=== PATIENT | female | born 1980 | race Caucasian/White ===

== ENCOUNTER 2020-01-28 13:57 | Outpatient (REF) | payer OTHER, SELFPAY ==
[2020-01-28 16:56] LABS: Syphilis Screen Nonreactive (Nonreactive)
[2020-01-29 01:46] LABS: CT PCR NOT DETECTED (Not Detect.); NG PCR NOT DETECTED (Not Detect.)
[2020-01-31 08:32] LABS: HBsAGNum1 0.23 S/CO (0.00-0.99); Hepatitis B Surface Antigen Negative (Negative); ~HepC Num1 0.09 S/CO (0.00-0.79); ~Hepatitis C Antibody Nonreactive (Nonreactive)
[2020-01-31 08:44] LABS: HIV AB/AG Nonreactive (Nonreactive); HIV Num 1 0.09 S/CO (0.00-0.99)
== END 2020-01-28 13:58 | disposition home or self-care (01) ==
LOC: HO.LAB 13:57
PROVIDERS: PCP Internal Medicine; Visit Provider Advanced Practice Midwife
DX: Z01.419 Encounter for gynecological examination (general) (routine) without abnormal findings (principal); Z11.4 Encounter for screening for human immunodeficiency virus [HIV]; Z11.3 Encounter for screening for infections with a predominantly sexual mode of transmission; Z01.84 Encounter for antibody response examination; Z20.2 Contact with and (suspected) exposure to infections with a predominantly sexual mode of transmission
CPT/HCPCS: 86780; 86803; 87340; 87389; 87491; 87591

== ENCOUNTER → 2020-07-19 10:48 | Outpatient (BNVA) | payer OTHER, SELFPAY | PROVIDERS: PCP Internal Medicine; Referring Provider Internal Medicine; Visit Provider Surgery | DX: R19.8 Other specified symptoms and signs involving the digestive system and abdomen (principal) | CPT/HCPCS: 99212 ==

== ENCOUNTER 2020-10-19 11:41 | Emergency (ER) | payer OTHER, SELFPAY ==
--- NOTE | 2020-10-19 | ECG_ITS ---
Test Reason : DIZZYNESS Blood Pressure : / mmHG Vent. Rate : 076 BPM Atrial Rate : 076 BPM P-R Int : 166 ms QRS Dur : 080 ms QT Int : 382 ms P-R-T Axes : 045 -01 022 degrees QTc Int : 429 ms Normal sinus rhythm Normal ECG No previous ECGs available Referred By: Generic ED Physician Electronically Signed By:Michael Godinez
[2020-10-19 11:49] VITALS: BP 125/84; PULSE 68; RESP 18; TEMP 36.8; O2SAT 97; BMI 25.5
[2020-10-19 15:47] VITALS: BP 144/87; PULSE 65; RESP 16; O2SAT 99
--- NOTE | 2020-10-19 16:03 | ED_ITS ---
HPI - Dizziness General Chief Complaint: Dizziness Stated Complaint: fainting spells Time Seen by Provider: 10/19/20 15:40 Source: patient Mode of arrival: ambulatory Limitations: no limitations History of Present Illness HPI Narrative: 40 yo female previously healthy complaints of head pressure with associated black spots in vision, dizziness, occasional nausea/vomiting x 2 weeks. She does have symptoms with movement but also has the symptoms had rest. No associated sinus pressure or nasal congestion. No chest pain, shortness of breath, fevers, chills, body aches. No abdominal pain or diarrhea. She has been increasing fluids at home. Related Data Home Medications Medication Instructions Recorded Confirmed cetirizine 10 mg tablet 10 mg PO DAILY 01/28/20 07/19/20 citalopram 40 mg tablet 40 mg PO DAILY 01/28/20 07/19/20 fluticasone propionate 50 INTRANASAL 01/28/20 07/19/20 mcg/actuation nasal spray,suspension montelukast 10 mg tablet 10 mg PO BEDTIME 01/28/20 07/19/20 nitrofurantoin macrocrystal 50 mg 0 mg PO 01/28/20 07/19/20 capsule oxybutynin chloride 10 mg 10 mg PO DAILY 01/28/20 07/19/20 tablet,extended release 24 hr Previous Rx's Medication Instructions Recorded pjimwkiapo-ycfbjiuxppxyc-wvanlyhd 1 cap PO Q8H PRN #10 cap 10/19/20 50 mg-300 mg-40 mg capsule (Fioricet) Allergies Allergy/AdvReac Type Severity Reaction Status Date / Time adhesive tape Allergy Mild Rash Verified 10/19/20 11:49 Review of Systems Review of Systems: Yes all other systems are reviewed and are negative Constitutional: Constitutional: Reports no additional constitutional complaints, Denies body ache(s), Denies chills, Denies fever(s), Reports headache(s) (Pressure) and Denies weakness Eyes: Eyes: Reports no additional eye complaints and Reports change in vision ENT: Reports system reviewed and no additional complaints, except as documented, Reports dizziness, Reports headache(s) (Pressure), Denies nasal congestion, Denies nasal discharge and Denies neck pain Cardiovascular: Cardiovascular: Reports no additional cardiovascular complaints, Denies chest pain, Denies leg edema and Denies dyspnea Respiratory: Respiratory: Reports no additional respiratory complaints, Denies cough and Denies dyspnea Gastrointestinal: Gastrointestinal: Reports no additional gastrointestinal complaints, Denies abdominal pain, Denies diarrhea, Reports nausea and Reports vomiting Genitourinary: Genitourinary: Reports no additional female genitourinary complaints and Denies urinary incontinence Musculoskeletal: Musculoskeletal: Reports no additional musculoskeletal complaints, Denies back pain, Denies arthralgias, Denies joint swelling, Denies neck pain, Denies numbness and Denies tingling Integumentary/Breasts: Skin/Breast: Reports system reviewed and no additional complaints, except as docu and Denies rash Neurologic: Reports system reviewed and no additional complaints, except as documented, Denies Abnormal speech present, Reports dizziness, Reports headache(s) (Pressure), Denies numbness, Denies tingling and Denies weakness PMFSH Past Medical History Attestation statement: The following information was validated with the patient. Source: old records reviewed and nursing notes reviewed Medical History Abdominal wall asymmetry Depression Urinary incontinence Vitamin D deficiency Surgical History Hx of prior ablation treatment Hx of tubal ligation Family History Family History Mother Diabetes mellitus Sister Diabetes mellitus Maternal Grandmother Diabetes mellitus Father HTN (hypertension) Colon polyp Schizophrenia Paternal Aunt Breast cancer Maternal Aunt Breast cancer Paternal Grandfather Colon cancer Social History Social History Alcohol intake: current Alcohol intake frequency: holidays/special occasions only Advance Directives: No Advance Directives Information Provided: Yes Patient : No Gender identity: female Physical Exam Vital Signs: Vital Signs: Last Vital Signs Temp 98.1 F 10/19/20 16:26 Pulse 74 10/19/20 17:31 Resp 16 10/19/20 17:31 BP 141/93 H 10/19/20 17:31 Pulse Ox 98 10/19/20 17:31 Body Mass Index 25.5 Const: General: cooperative, healthy appearing, comfortable and no acute distress Orientation/consciousness: patient oriented x3 Limitations: no limitations HENMT: Head: Yes normal to inspection Ears: hearing grossly normal da aterally and TM's normal bilaterally General nose exam: Normal external nose present Face and sinus: Yes normal facial exam Mouth: Normal oral and palatal mucosa present Throat: Yes posterior oropharynx normal, Yes tonsils normal and Yes uvula midline Eyes: General: appearance normal, both eyes and all related structures Visual Das: normal visual das by confrontation Alignment and Position: alignment normal Periorbital: periorbital findings normal Eyelids: Yes eyelids normal Conjunctivae: conjunctivae normal Sclerae: sclerae normal Corneas: corneas normal Pupils: Equal, round and reactive pupils present EOM: EOMs intact bilaterally Direct Ophthalmoscopy: normal light reflex and no photophobia Neck: Neck: Yes normal visual inspection, Yes full ROM, Yes no lymphadenopathy and Yes no meningeal signs Chest: Chest palpation & inspection: normal inspection of the chest Resp: Effort & Inspection: normal respiratory effort Auscultation: clear to auscultation bilaterally Cardio: Rate: regular rate Rhythm: regular rhythm Peripheral pulses: Peripheral pulses 2+ throughout GI: Inspection: Yes normal to inspection Palpation (GI): Soft to palpation and nontender Auscultation: normal bowel sounds Back/Spine/Pelvis: Thoracic/Lumbar Spine: thoracic and lumbar spine normal to inspection Skin: General skin exam: no rashes or lesions noted Neuro: General: patient oriented x3, no meningeal signs, no focal motor deficits and normal sensation to monofilament Cranial nerves: Yes CN's II-XII intact bilaterally, Yes Equal, round and reactive pupils present, Yes Bilate rally intact EOM present, Yes Nystagmus not present and Yes Midline tongue present Cognition (Neuro): normal cognition Speech: No Abnormal speech present Gait exam (Neuro): Normal gait present Motor exam (neuro): 5/5 motor strength present throughout Sensory Exam: Normal double simultaneous stimulation for sensation Coordination: nrinwo-ma-zkpr test normal, yysa-kp-cpdi test normal and tandem gait normal Extrem: General: Yes normal to inspection Course Course Course Narrative: 40-year-old female here with complaints of 2-3 weeks of intermittent head pressure with associated black spots in the vision, dizziness and 1 episode of nausea and vomiting. Episodes occur both at rest and with exertion. She has been increasing her fluids at home with continued symptoms. On exam normal neuro exam. Hemodynamically stable. ?orthostatic hypotension vs migraine. Will check labs, orthostatic vital sign, UA, urine . Will give normal saline bolus and reassess 1710-labs unremarkable. Urine and urine negative. Orthostatics negative. Patient is feeling improved after normal saline bolus. She actually has no symptoms on my assessment and tells me her episodes are intermittent. ? secondary to dehydration vs migraines. Therefore, will send patient home with trial migraine medicine p.r.n.. Also recommended increasing fluids home. Patient's blood pressure is mildly elevated for her and so she will follow-up with her primary care doctor in regards to this. Her symptoms are likely multifactorial. Normal neuro exam with episodic symptoms for 2 weeks so less likely underlying ICH versus CVA. Reviewed worrisome signs and symptoms of when to return to the emergency department. Comfortable discharge home. MDM - Dizziness MDM Narrative Medical decision making narrative: Orthostatic hypotension, migraines, electrolyte abnormality Medical Records Attestation: I reviewed the patient's medical records. Lab Data Attestation: I reviewed the patient's lab results. Result diagrams: 10/19/20 16:01 10/19/20 16:01 Labs: Lab Results 10/19/20 10/19/20 10/19/20 Range/Units 16:01 16:01 17:06 WBC 6.6 (4.8-10.8) X10*3/uL RBC 4.33 (4.20-5.50) X10*6/uL Hgb 13.3 (12.0-16.0) g/dl Hct 38.9 (37-47) % MCV 89.8 (80-98) fL MCH 30.7 (27.0-33.0) pg MCHC 34.2 (31.0-35.0) g/dl RDW 11.6 (11.0-16.0) % Plt Count 336 (160-400) X10*3/uL MPV 9.2 L (9.4-12.3) fL Immature Gran % (Auto) 0.3 (0.0-0.4) % Neut % (Auto) 63.7 (45-73) % Lymph % (Auto) 26.6 (20-40) % [place] % (Auto) 8.1 (2-11) % Eos % (Auto) 0.8 (0-4) % Baso % (Auto) 0.5 (0-2) % Lymph # (Auto) 1.8 (1.2-4.9) X10*3/uL [place] # (Auto) 0.5 (0.1-1.2) X10*3/uL Eos # (Auto) 0.1 (0.0-0.4) X10*3/uL Baso # (Auto) 0.0 (0.0-0.2) X10*3/uL Abs Immat Gran (auto) 0.02 (0.00-0.03) X10*3/uL Absolute Neuts (auto) 4.2 (2.0-8.3) X10*3/uL Absolute Nucleated RBC 0.000 (0.0-0.012) X10*3/uL Nucleated RBC % (auto) 0.0 (0.0-0.2) /100WBC Sodium 139 (135-145) mmol/L Potassium 4.1 (3.3-5.1) mmol/L Chloride 102 (96-108) mmol/L Carbon Dioxide 26 (22-29) mmol/L Anion Gap 15 (12-20) BUN 7 L (9-16) mg/dL Creatinine 0.69 (0.5-1.4) mg/dL Estim Creat Clear Calc 115.5 Estimated GFR > 60 Random Glucose 88 (60-115) mg/dL Calcium 9.5 (8.4-10.2) mg/dL Total Bilirubin 0.4 (0.0-1.0) mg/dL Direct Bilirubin 0.2 (0.0-0.5) mg/dL AST 19 (5-31) U/L ALT 15 (0-31) U/L Alkaline Phosphatase 61 (39-117) U/L Total Protein 8.0 (6.5-8.0) g/dL Albumin 4.5 (3.5-5.0) g/dL Lipase 31 (8-78) U/L Urine Color YELLOW Urine Appearance CLEAR Urine pH 7.0 (5.0-8.0) Ur Specific [place] <= 1.005 (1.005-1.025) Urine Protein NEG (NEG-TRACE) MG/DL Urine Glucose (UA) NEG (NEG) MG/DL Urine Ketones NEG (NEG) MG/DL Urine Blood NEG (NEG) Urine Nitrite NEG (NEG) Ur Leukocyte Esterase NEG (NEG) Urine RBC 0-2 (0) /HPF Urine WBC 0-2 (0-4) /HPF Ur Squamous Epith Cells 1+ /LPF Urine Bacteria TRACE /LPF Urine Test (NEGATIVE) 10/19/20 Range/Units 17:06 WBC (4.8-10.8) X10*3/uL RBC (4.20-5.50) X10*6/uL Hgb (12.0-16.0) g/dl Hct (37-47) % MCV (80-98) fL MCH (27.0-33.0) pg MCHC (31.0-35.0) g/dl RDW (11.0-16.0) % Plt Count (160-400) X10*3/uL MPV (9.4-12.3) fL Immature Gran % (Auto) (0.0-0.4) % Neut % (Auto) (45-73) % Lymph % (Auto) (20-40) % [place] % (Auto) (2-11) % Eos % (Auto) (0-4) % Baso % (Auto) (0-2) % Lymph # (Auto) (1.2-4.9) X10*3/uL [place] # (Auto) (0.1-1.2) X10*3/uL Eos # (Auto) (0.0-0.4) X10*3/uL Baso # (Auto) (0.0-0.2) X10*3/uL Abs Immat Gran (auto) (0.00-0.03) X10*3/uL Absolute Neuts (auto) (2.0-8.3) X10*3/uL Absolute Nucleated RBC (0.0-0.012) X10*3/uL Nucleated RBC % (auto) (0.0-0.2) /100WBC Sodium (135-145) mmol/L Potassium (3.3-5.1) mmol/L Chloride (96-108) mmol/L Carbon Dioxide (22-29) mmol/L Anion Gap (12-20) BUN (9-16) mg/dL Creatinine (0.5-1.4) mg/dL Estim Creat Clear Calc Estimated GFR Random Glucose (60-115) mg/dL Calcium (8.4-10.2) mg/dL Total Bilirubin (0.0-1.0) mg/dL Direct Bilirubin (0.0-0.5) mg/dL AST (5-31) U/L ALT (0-31) U/L Alkaline Phosphatase (39-117) U/L Total Protein (6.5-8.0) g/dL Albumin (3.5-5.0) g/dL Lipase (8-78) U/L Urine Color Urine Appearance Urine pH (5.0-8.0) Ur Specific [place] (1.005-1.025) Urine Protein (NEG-TRACE) MG/DL Urine Glucose (UA) (NEG) MG/DL Urine Ketones (NEG) MG/DL Urine Blood (NEG) Urine Nitrite (NEG) Ur Leukocyte Esterase (NEG) Urine RBC (0) /HPF Urine WBC (0-4) /HPF Ur Squamous Epith Cells /LPF Urine Bacteria /LPF Urine Test NEGATIVE (NEGATIVE) ECG Data Attestation: I personally reviewed and interpreted this ECG as follows: ECG interpretation date: 10/19/20 ECG interpretation time: 16:32 Interpretation: Normal sinus rhythm with a rate of 76, normal TN, normal QRS, no rmal QT Discharge Plan Discharge Clinical Impression: Near syncope, Migraine Patient Disposition: Home, Self-Care Instructions: Migraine Headache (ED), Near Syncope (ED) Additional Instructions: Increase fluids, rest Change positions slowly I am prescribing a medication to help with headache if these symptoms occur. Your blood pressure was mildly elevated today and you should follow-up with primary care doctor in regards to this. Prescriptions: New gjzkpvjdjf-wfmsidwapyeul-vpdz [Fioricet] 50-300-40 mg capsule 1 cap PO Q8H PRN (Reason: pain) Qty: 10 RF: 0 No Action oxybutynin chloride 10 mg tablet extended release 24hr 10 mg PO DAILY RF: 0 montelukast 10 mg tablet 10 mg PO BEDTIME RF: 0 citalopram 40 mg tablet 40 mg PO DAILY RF: 0 cetirizine 10 mg tablet 10 mg PO DAILY RF: 0 fluticasone propionate 50 mcg/actuation spray,suspension intranasal RF: 0 nitrofurantoin macrocrystal 50 mg capsule 0 mg PO RF: 0 Referrals: Daniel Freeman MD [Primary Care Provider] - 2 days Interventions: ED Discharge Assessment Last Done: 10/19/20 18:47 Discharge Date/Time: 10/19/20 18:47
[2020-10-19] MEDS: 0.9 % Sodium Chloride 1,000 ML 999 ML IV (16:05)
[2020-10-19 16:10] LABS: MANUAL DIFF FLAG NO
[2020-10-19 16:11] LABS: Basophils Percent Auto 0.5 % (0-2); Eosinophils Absolute Auto 0.1 X10*3/uL (0.0-0.4); Eosinophils Percent Auto 0.8 % (0-4); Hematocrit 38.9 % (37-47); Hemoglobin 13.3 g/dl (12.0-16.0); Imm Gran Abs Auto 0.02 X10*3/uL (0.00-0.03); Imm Gran Pct Auto 0.3 % (0.0-0.4); Lymphocytes Absolute Auto 1.8 X10*3/uL (1.2-4.9); Lymphocytes Percent Auto 26.6 % (20-40); Mean Corpuscular HGB Conc 34.2 g/dl (31.0-35.0); Mean Corpuscular Hemoglobin 30.7 pg (27.0-33.0); Mean Corpuscular Volume 89.8 fL (80-98); Mean Platelet Volume 9.2 fL (9.4-12.3); Monocytes Absolute Auto 0.5 X10*3/uL (0.1-1.2); Monocytes Percent Auto 8.1 % (2-11); Neutrophils Absolute Auto 4.2 X10*3/uL (2.0-8.3); Neutrophils Percent Auto 63.7 % (45-73); Platelet Count 336 X10*3/uL (160-400); Red Blood Count 4.33 X10*6/uL (4.20-5.50); Red Cell Distribution Width 11.6 % (11.0-16.0); White Blood Count 6.6 X10*3/uL (4.8-10.8)
[2020-10-19 16:26] VITALS: BP 144/87; PULSE 63; RESP 16; TEMP 36.7; O2SAT 100
[2020-10-19 16:46] LABS: Alanine Aminotransferase 15 U/L (0-31); Albumin Level 4.5 g/dL (3.5-5.0); Alkaline Phosphatase 61 U/L (39-117); Anion Gap 15 (12-20); Aspartate Amino Transferase 19 U/L (5-31); Bilirubin Direct 0.2 mg/dL (0.0-0.5); Bilirubin Total 0.4 mg/dL (0.0-1.0); Blood Urea Nitrogen 7 mg/dL (9-16); Calcium 9.5 mg/dL (8.4-10.2); Carbon Dioxide 26 mmol/L (22-29); Chloride 102 mmol/L (96-108); Creatinine Clr Calc Pharmacy 115.5; Estimated Glomerular Filt Rate > 60; Glucose Random 88 mg/dL (60-115); Lipase 31 U/L (8-78); Potassium 4.1 mmol/L (3.3-5.1); Sodium 139 mmol/L (135-145)
[2020-10-19 17:21] LABS: Glucose Urine UA NEG (NEG); Leukocyte Esterase Urine NEG (NEG); Nitrite Urine NEG (NEG); Specific Gravity - Urine <= 1.005 (1.005-1.025); Urine Blood NEG (NEG); Urine Ketones NEG (NEG); Urine Protein NEG (NEG-TRACE)
[2020-10-19 17:23] LABS: Color Urine YELLOW
[2020-10-19 17:24] LABS: Appearance Urine CLEAR; UPreg QC Valid YES; Urine Pregnancy NEGATIVE (NEGATIVE)
[2020-10-19 17:29] VITALS: BP 133/80; PULSE 65
[2020-10-19 17:30] VITALS: BP 131/84; BP 141/93; PULSE 72; PULSE 76
[2020-10-19 17:31] VITALS: BP 141/93; PULSE 74; RESP 16; O2SAT 98
[2020-10-19 19:06] LABS: Bacteria Urine TRACE /LPF; RBC Urine 0-2 /HPF (0); Squamous Epithelial Cell Urine 1+ /LPF; WBC Urine 0-2 /HPF (0-4)
== END 2020-10-19 18:47 | disposition home or self-care (01) ==
PROVIDERS: Emergency Provider Emergency Medicine; PCP Internal Medicine
DX: R55 Syncope and collapse (principal); G43.909 Migraine, unspecified, not intractable, without status migrainosus; R42 Dizziness and giddiness; Z79.899 Other long term (current) drug therapy
CPT/HCPCS: 36415; 80048; 80076; 81001; 81025; 83690; 85025; 93005; 99285

== ENCOUNTER 2020-10-22 02:54 | Emergency (ER) | payer OTHER, SELFPAY ==
--- NOTE | ~2020-10-22 | XR_ITS ---
EXAMINATION: XR CHEST CLINICAL INFORMATION: Cough COMPARISON: None TECHNIQUE: Frontal view of the chest was obtained. FINDINGS: Normal symmetric lung volumes. No parenchymal consolidation. No pleural effusion. No pneumothorax. Cardiomediastinal silhouette and pulmonary vascularity are within normal limits. No acute osseous abnormalities. XR/XR chest 1V IMPRESSION: Normal chest
[2020-10-22 03:49] VITALS: BP 131/93; PULSE 84; RESP 18; TEMP 36.7; O2SAT 100; BMI 25.5
--- NOTE | 2020-10-22 04:27 | ED_ITS ---
HPI - General Adult General Chief complaint: General Medical Stated complaint: Sob/Cough Time Seen by Provider: 10/22/20 02:56 Source: patient Mode of arrival: ambulatory Limitations: no limitations History of Present Illness HPI narrative: Patient comes emergency room complaining of cough. Patient states she has been having dry cough for about 3 days, now complaining of sore throat from coughing so much. Patient denies fever chills, patient states that the coughing is giving her headache when she coughs. Patient thinks that there was an issue with her AC unit at home, not venting properly, causing her symp toms. Patient denies chest pain, no shortness of breath Related Data Home Medications Medication Instructions Recorded Confirmed cetirizine 10 mg tablet 10 mg PO DAILY 01/28/20 07/19/20 citalopram 40 mg tablet 40 mg PO DAILY 01/28/20 07/19/20 fluticasone propionate 50 INTRANASAL 01/28/20 07/19/20 mcg/actuation nasal spray,suspension montelukast 10 mg tablet 10 mg PO BEDTIME 01/28/20 07/19/20 nitrofurantoin macrocrystal 50 mg 0 mg PO 01/28/20 07/19/20 capsule oxybutynin chloride 10 mg 10 mg PO DAILY 01/28/20 07/19/20 tablet,extended release 24 hr Previous Rx's Medication Instructions Recorded mtxgkhznaf-mymjnrwlqpkov-tuvdalnc 1 cap PO Q8H PRN #10 cap 10/19/20 50 mg-300 mg-40 mg capsule (Fioricet) benzonatate 100 mg capsule 100 mg PO TID PRN #14 cap 10/22/20 (Tessalon [place]) Allergies Allergy/AdvReac Type Severity Reaction Status Date / Time adhesive tape Allergy Mild Rash Verified 10/19/20 11:49 Review of Systems Review of Systems: Constitutional : No Weight loss, No Fever, No Chills, No Night Sweats, No Fatigue, No Malaise ENT/Mouth : No Hearing loss, No Ear Pain, No Nasal Congestion, No Sinus Pain, complaining of sore throat, voice is changing intermittently, No Rhinorrhea, No Swallowing Difficulty Eyes: No Eye Pain, No Swelling, No Redness, No Foreign Body, No Discharge, No Vision Changes Cardiovascular : No Chest Pain, No SOB, No Dyspnea on Exertion, No Orthopnea, No Edema, No Palpitations Respiratory : Complaining of dry cough No Wheezing, No Smoke Exposure, No Dyspnea Gastrointestinal : No Nausea, No Vomiting, No Diarrhea, No Constipation, No abdominal Pain, No Hematochezia, No Melena Genitourinary : no irregular bleeding, No Dysuria, No Urinary Frequency, No Hematuria, No Urinary Incontinence, No Urgency, No Flank Pain, No Urinary Flow Changes, No Hesitancy Musculoskeletal : No joint pain, No Myalgias, No Joint Swelling Skin : No Skin Lesions, No rash Neuro : No Weakness, No Numbness, No Paresthesias, No Loss of Consciousness, No Dizziness, complaining of headache from coughing so much Psych : No Anxiety/Panic, No Depression, No SI/HI/AH/VH, No Social Issues, Heme/Lymph: No Bruising, No Bleeding,No Lymphadenopathy Endocrine : No Polyuria, No Polydipsia, No Temperature Intolerance PMFSH Past Medical History Medical History Abdominal wall asymmetry Depression Urinary incontinence Vitamin D deficiency Surgical History Hx of prior ablation treatment Hx of tubal ligation Family History Family History Mother Diabetes mellitus Sister Diabetes mellitus Maternal Grandmother Diabetes mellitus Father HTN (hypertension) Colon polyp Schizophrenia Paternal Aunt Breast cancer Maternal Aunt Breast cancer Paternal Grandfather Colon cancer Social History Social History Alcohol intake: current Alcohol intake frequency: holidays/special occasions only Advance Directives: No Advance Directives Information Provided: Yes Patient : No Gender identity: female Physical Exam Vital Signs: Vital Signs: Last Vital Signs Temp 98.1 F 10/22/20 03:49 Pulse 84 10/22/20 03:49 Resp 18 10/22/20 03:49 BP 131/93 H 10/22/20 03:49 Pulse Ox 100 10/22/20 03:49 Body Mass Index 25.5 Const: Other: Appearance: Alert. Oriented X3. No acute distress. Eyes: Pupils equal, round and reactive to light. ENT: Pharynx normal. Erythematous oropharynx, no exudates, no abscess is visualized Neck: Normal inspection. Neck supple. No lymph nodes noted. No crepitus CVS: Normal heart rate and rhythm. Pulses normal. Normal S1 and S2 Respiratory: No respiratory distress. Breath sounds normal. No Wheezing. Actively dry coughing Abdomen: Soft and nontender. No rigidity. No distention. good BS x4 Skin: Skin warm and dry. Normal skin color. Normal skin turgor. Extremities: No lower extremity edema. No Lacerations. No Rash Neuro: Oriented X 3. No motor deficit. No sensory deficit. Moving all extermities. No slurred speech. Course Course Course Narrative: Patient is COVID exam negative, x-ray within normal limits, patient likely having viral pharyngitis, viral syndrome, versus viral bronchitis Medical Decision Making Lab Data Labs: Lab Results 10/22/20 Range/Units 04:40 Coronavirus (PCR) NEGATIVE (Negative) Influenza Type A (PCR) NEGATIVE (Negative) Influenza Type B (PCR) NEGATIVE (Negative) RSV RNA Qual (PCR) NEGATIVE (Negative) Imaging Data Chest x-ray: Radiologist's impression: INDINGS: Normal symmetric lung volumes. No parenchymal consolidation. No pleural effusion. No pneumothorax.? Cardiomediastinal silhouette and pulmonary vascularity are within normal limits. No acute osseous abnormalities. XR/XR chest 1V IMPRESSION: Normal chest Discharge Plan Discharge Clinical Impression: Acute viral pharyngitis, Acute bronchitis, viral Patient Disposition: Home, Self-Care Instructions: Pharyngitis (ED) Additional Instructions: Please follow-up with your primary care physician tomorrow. If you have any worsening or new symptoms, please return to the emergency room or call 911 Prescriptions: New benzonatate [Tessalon Perles] 100 mg capsule 100 mg PO TID PRN (Reason: cough) Qty: 14 RF: 0 No Action zzbgkftioo-bmmgryebcbbyv-xieu [Fioricet] 50-300-40 mg capsule 1 cap PO Q8H PRN (Reason: pain) Qty: 10 RF: 0 oxybutynin chloride 10 mg tablet extended release 24hr 10 mg PO DAILY RF: 0 montelukast 10 mg tablet 10 mg PO BEDTIME RF: 0 citalopram 40 mg tablet 40 mg PO DAILY RF: 0 cetirizine 10 mg tablet 10 mg PO DAILY RF: 0 fluticasone propionate 50 mcg/actuation spray,suspension intranasal RF: 0 nitrofurantoin macrocrystal 50 mg capsule 0 mg PO RF: 0
[2020-10-22] MEDS: dexAMETHasone sod phosphate 4 MG/ML VIAL 8 MG IVPUSH (05:16)
[2020-10-22] MEDS: Lidocaine HCl Viscous 2 % 15 ML SOLUTION MUCOUS MEM (05:16)
[2020-10-22] MEDS: Benzonatate 100 MG CAPSULE 200 MG PO (05:17)
[2020-10-22 05:21] LABS: Influenza A PCR NEGATIVE (Negative); Influenza B PCR NEGATIVE (Negative); Resp Syncy Virus RNA Qual PCR NEGATIVE (Negative); SARS COV2 PCR INHOUSE NEGATIVE (Negative)
== END 2020-10-22 05:45 | disposition home or self-care (01) ==
PROVIDERS: Emergency Provider Emergency Medicine
DX: J02.8 Acute pharyngitis due to other specified organisms (principal); J20.8 Acute bronchitis due to other specified organisms; Z20.822 Contact with and (suspected) exposure to COVID-19
CPT/HCPCS: 0241U; 36415; 71045; 96374; 99283; 99284; J1100

== ENCOUNTER 2021-03-13 11:43 | Outpatient (REF) | payer OTHER, SELFPAY ==
[2021-03-14 11:59] LABS: BV Int Neg Control Negative (Negative); BV Int Pos Control Positive (Positive)
[2021-03-15 04:51] LABS: CT PCR NOT DETECTED (Not Detect.); NG PCR NOT DETECTED (Not Detect.)
== END 2021-03-13 11:44 | disposition home or self-care (01) ==
LOC: HO.LAB 11:43
PROVIDERS: Visit Provider Advanced Practice Midwife
DX: N89.8 Other specified noninflammatory disorders of vagina (principal); N64.3 Galactorrhea not associated with childbirth; R10.2 Pelvic and perineal pain; N94.10 Unspecified dyspareunia; E55.9 Vitamin D deficiency, unspecified; F32.A Depression, unspecified; Z11.3 Encounter for screening for infections with a predominantly sexual mode of transmission; Z11.8 Encounter for screening for other infectious and parasitic diseases; Z98.51 Tubal ligation status
CPT/HCPCS: 87480; 87491; 87510; 87591; 87660; 99212

== ENCOUNTER 2021-04-11 08:56 | Outpatient (REF) | payer OTHER, SELFPAY ==
--- NOTE | ~2021-04-11 | US_ITS ---
EXAMINATION: US PELVIS CLINICAL INFORMATION: Dyspareunia. COMPARISON: 03/24/2012 TECHNIQUE: Ultrasound of the pelvis is performed using both transabdominal and transvaginal transducers along with Doppler. Transvaginal imaging is performed due to inadequate visualization transabdominally. FINDINGS: Uterus: The uterus is anteverted and measures 8.3 cm in length, 5.6 mL in AP and 6.1 cm in transverse dimension. The double wall endometrial thickness is 0.47 mm. The uterus is smooth in contour and has normal myometrial echogenicity. There is a hypoechoic lesion in the posterior upper body of the uterus measuring 3.3 x 1.5 x 1.9 cm. Previously it measured 1.3 x 1.4 x 1.7 cm. Adnexa: Both ovaries are visualized. There is normal color flow to the adnexa. There is no ovarian torsion. There is no pelvic ascites or fluid collection. Right ovary measures 4.1 x 2.4 x 3.0 cm and volume 15.4 mL. No focal lesion is seen. Previously it measured 3.0 x 2.0 x 2.4 cm and volume 7.6 mL. Left ovary measures 3.5 x 1.5 x 1.9 cm and volume 5.2 mL. No focal lesion is seen. Previously left ovary measured 2.3 x 1.4 x 1.2 cm and volume 2.1 mL. There is no free fluid in the cul-de-sac. US/US pelvic and transvaginal IMPRESSION: Posterior right upper body uterine fibroid. It has almost doubled its size since the last exam. Unremarkable bilateral ovaries. No free fluid in the cul-de-sac.
== END 2021-04-11 08:57 | disposition home or self-care (01) ==
LOC: HO.HMGCX 08:56
PROVIDERS: PCP Internal Medicine; Visit Provider Advanced Practice Midwife
DX: N94.10 Unspecified dyspareunia (principal)
CPT/HCPCS: 76830; 76856

== ENCOUNTER → 2021-04-25 11:26 | Outpatient (BNVA) | payer OTHER, SELFPAY | PROVIDERS: PCP Internal Medicine; Visit Provider Advanced Practice Midwife ==

== ENCOUNTER 2021-07-06 10:33 | Emergency (ER) | payer OTHER, SELFPAY ==
--- NOTE | ~2021-07-06 | XR_ITS ---
EXAMINATION: XR CHEST CLINICAL INFORMATION: Syncope. COMPARISON: 10/22/2020 chest radiographs. TECHNIQUE: Frontal view of the chest was obtained. FINDINGS: No significant abnormality is noted involving the heart, lungs, mediastinum, bony thorax or soft tissues. XR/XR chest 1V IMPRESSION: No acute cardiopulmonary process.
--- NOTE | ~2021-07-06 | CT_ITS ---
EXAMINATION: CT HEAD WITHOUT CONTRAST CLINICAL INFORMATION: Syncope COMPARISON: None. TECHNIQUE: Contiguous axial imaging was performed from the skull base to vertex without intravenous administration of contrast. Coronal and sagittal reformatted images are performed at the CT scanner. [This CT examination was performed using dose optimization techniques as appropriate, variously including the following: *Automated exposure control *Adjustment of mA and/or kV according to patient size (this includes techniques or standardized protocols for targeted exams where dose is matched to indication/reason for exam; i.e. extremities or head) *Use of iterative reconstruction technique] DLP: 646 mGy-cm. FINDINGS: There is no evidence of acute intracranial hemorrhage or territorial infarction. No abnormal mass-effect or midline shift is seen. De Jesus to white matter differentiation is well preserved. No extra-axial fluid collections are identified. The ventricles are normal in size. There is no abnormal attenuation within the brain parenchyma. There is no osseous abnormality. The mastoid air cells and visualized portions of the paranasal sinuses are well-aerated. CT/CT head/brain wo con IMPRESSION: No acute intracranial pathology.
[2021-07-06 10:44] VITALS: BP 132/84; PULSE 68; RESP 17; TEMP 36.6; O2SAT 98; BMI 24.0
--- NOTE | 2021-07-06 10:49 | ECG_ITS ---
Test Reason : syncope Blood Pressure : / mmHG Vent. Rate : 066 BPM Atrial Rate : 066 BPM P-R Int : 152 ms QRS Dur : 076 ms QT Int : 370 ms P-R-T Axes : 032 -03 017 degrees QTc Int : 387 ms Normal sinus rhythm Normal ECG When compared with ECG of 19-OCT-2020 16:32, No significant change was found Referred By: Generic ED Physician Electronically Signed By:LIAM GODWIN MD
[2021-07-06 11:03] LABS: MANUAL DIFF FLAG NO
[2021-07-06 11:06] LABS: Basophils Percent Auto 0.6 % (0-2); Eosinophils Percent Auto 0.6 % (0-4); Hemoglobin 13.2 g/dl (12.0-16.0); Imm Gran Abs Auto 0.06 X10*3/uL (0.00-0.03); Imm Gran Pct Auto 0.9 % (0.0-0.4); Lymphocytes Absolute Auto 2.1 X10*3/uL (1.2-4.9); Lymphocytes Percent Auto 29.6 % (20-40); Mean Corpuscular HGB Conc 33.8 g/dl (31.0-35.0); Mean Corpuscular Hemoglobin 30.1 pg (27.0-33.0); Mean Platelet Volume 8.9 fL (9.4-12.3); Monocytes Absolute Auto 0.5 X10*3/uL (0.1-1.2); Monocytes Percent Auto 6.9 % (2-11); Neutrophils Absolute Auto 4.3 x10*3/uL (2.0-8.3); Neutrophils Percent Auto 61.4 % (45-73); Platelet Count 333 X10*3/uL (160-400); Red Blood Count 4.38 X10*6/uL (4.20-5.50); Red Cell Distribution Width 11.9 % (11.0-16.0); White Blood Count 6.9 X10*3/uL (4.8-10.8)
[2021-07-06 11:15] VITALS: BP 122/81; PULSE 65; RESP 14; TEMP 36.8; O2SAT 97
[2021-07-06 11:21] LABS: Anion Gap 10 (12-20); Blood Urea Nitrogen 6 mg/dL (9-16); Calcium 9.5 mg/dL (8.4-10.2); Carbon Dioxide 29 mmol/L (22-29); Chloride 103 mmol/L (96-108); Creatinine Clr Calc Pharmacy 114.3; Estimated Glomerular Filt Rate > 60; Glucose Random 82 mg/dL (60-115); Potassium 4.7 mmol/L (3.3-5.1); Sodium 137 mmol/L (135-145)
[2021-07-06 11:25] LABS: Troponin-I High Sensitivity < 3.5 ng/L (<3.5-17.0)
[2021-07-06 12:48] VITALS: BP 123/78; PULSE 60; RESP 18; TEMP 37; O2SAT 94
[2021-07-06 13:43] VITALS: BP 145/85; PULSE 60; RESP 14; O2SAT 99
[2021-07-06 13:53] LABS: Urine Pregnancy NEGATIVE (NEGATIVE)
[2021-07-06 13:54] LABS: UPreg QC Valid YES
[2021-07-06 13:55] LABS: IDNOW Serial# 16C4AD1C
[2021-07-06 13:56] LABS: COVID-19 Test Negative (Negative)
[2021-07-06 13:57] LABS: Appearance Urine HAZY; Color Urine STRAW; Glucose Urine UA NEG (NEG); Leukocyte Esterase Urine NEG (NEG); Nitrite Urine NEG (NEG); PH 7.5 (5.0-8.0); Specific Gravity - Urine 1.015 (1.005-1.025); UACC Culture Trigger NO; Urine Blood TRACE (NEG); Urine Ketones NEG (NEG); Urine Protein NEG (NEG-TRACE)
[2021-07-06 14:03] LABS: IDNOW Serial# 55D5AD1C; Influenza A Negative (Negative); Influenza B2 Negative (Negative)
[2021-07-06 14:13] LABS: Bacteria Urine TRACE /LPF; Squamous Epithelial Cell Urine 3+ /LPF; WBC Urine 0-2 /HPF (0-4)
[2021-07-06 15:16] LABS: D Dimer High Sensitivity < 150 NG/ML
[2021-07-06 15:20] VITALS: BP 127/84; PULSE 67; RESP 15; TEMP 37.3; O2SAT 98
--- NOTE | 2021-07-06 15:33 | ED_ITS ---
HPI - Syncope General Chief Complaint: Syncope Stated Complaint: Blacking out Time Seen by Provider: 07/06/21 13:11 Source: patient Mode of arrival: ambulatory Limitations: no limitations History of Present Illness HPI narrative: 41-year-old female presents for syncopal episode last night. Patient was face timing with her boyfriend when she felt weird and had tunnel vision, she then lost consciousness for what they say was a few minutes. No seizure-like activity. Patient states that when she was walking her daughter told her she was walking like a drunk, and she felt dizzy. Patient has been having episodes of syncope for the last 6-8 months. She has seen [facility], . his note of 04/18/2021 diagnosed her with insomnia and anxiety and depression. She was started on zolpidem and paroxetine patient states she has been having episodes of syncope off and on for last 6 months. No seizure-like activity. Yesterday patient ate normally. She does feel a little dizzy. No headache, weakness, nausea, vomiting, diarrhea, chest pain, shortness of breath States in 2014 she had on and off syncopal episodes for a year. Related Data Home Medications Medication Instructions Recorded Confirmed cetirizine 10 mg tablet 10 mg PO DAILY 01/28/20 07/19/20 citalopram 40 mg tablet 40 mg PO DAILY 01/28/20 07/19/20 fluticasone propionate 50 INTRANASAL 01/28/20 07/19/20 mcg/actuation nasal spray,suspension montelukast 10 mg tablet 10 mg PO BEDTIME 01/28/20 07/19/20 nitrofurantoin macrocrystal 50 mg 0 mg PO 01/28/20 07/19/20 capsule oxybutynin chloride 10 mg 10 mg PO DAILY 01/28/20 07/19/20 tablet,extended release 24 hr ergocalciferol (vitamin D2) 1,250 1,250 mcg PO QWEEK 03/13/21 mcg (50,000 unit) capsule paroxetine HCl 10 mg tablet 10 mg PO QAM 04/25/21 Previous Rx's Medication Instructions Recorded vmwgbstruc-oezwtqvcbyjds-rlxuvncb 1 cap PO Q8H PRN #10 cap 10/19/20 50 mg-300 mg-40 mg capsule (Fioricet) benzonatate 100 mg capsule 100 mg PO TID PRN #14 cap 10/22/20 (Tessalon Perles) metronidazole 0.75 % vaginal gel 1 appful VAGINAL BEDTIME 5 Days 03/30/21 (Metrogel Vaginal) #70 g Allergies Allergy/AdvReac Type Severity Reaction Status Date / Time adhesive tape Allergy Mild Rash Verified 04/25/21 11:26 Review of Systems Constitutional: Constitutional: Denies body ache(s), Denies chills, Denies fatigue, Denies fever(s), Denies headache(s), Denies malaise and Denies weakness Eyes: Eyes: Denies diplopia ENT: Reports Normal hearing present, Denies vertigo, Reports dizziness, Denies otalgia, Denies headache(s), Denies mouth pain, Denies post nasal drip, Denies sinus pain, Denies sinus pressure, Denies sore throat and Denies throat swelling Cardiovascular: Cardiovascular: Denies chest pain, Denies syncope, Denies leg edema, Denies lightheadedness, Reports Loss of Consciousness, Denies palpitations and Denies dyspnea Respiratory: Respiratory: Denies chest congestion, Denies cough and Denies dyspnea Gastrointestinal: Gastrointestinal: Denies abdominal pain, Denies hematochezia, Denies constipation, Denies diarrhea and Denies vomiting Musculoskeletal: Musculoskeletal: Reports no additional musculoskeletal complaints Neurologic: Reports Normal hearing present, Denies Abnormal speech present, Denies confusion, Denies vertigo, Reports dizziness, Denies syncope, Denies headache(s) and Denies weakness Psychiatric: Psychiatric: Denies anxiety, Denies confusion and Denies depression Endocrine: Endocrine: Denies fatigue and Denies palpitations Allergic/Immunologic: Allergic/Immunologic: Denies throat swelling PMFSH Past Medical History Medical History Abdominal wall asymmetry Depression Urinary incontinence Vitamin D deficiency Surgical History Hx of prior ablation treatment Hx of tubal ligation Family History Family History Mother Diabetes mellitus Sister Diabetes mellitus Maternal Grandmother Diabetes mellitus Father HTN (hypertension) Colon polyp Schizophrenia Paternal Aunt Breast cancer Maternal Aunt Breast cancer Paternal Grandfather Colon cancer Social History Social History Alcohol intake: current Alcohol intake frequency: holidays/special occasions only Patient Tobacco Use Status: Never used Tobacco Use of substances other than those prescribed or required for medical reasons: No Advance Directives: No Advance Directives Information Provided: No Patient : No Gender identity: Female Physical Exam Vital Signs: Vital Signs: Last Vital Signs Temp 98.3 F 07/06/21 16:14 Pulse 72 07/06/21 16:14 Resp 17 07/06/21 16:14 BP 141/88 H 07/06/21 16:14 Pulse Ox 99 07/06/21 16:14 BMI result Body Mass Index 24.0 Const: General: No confusion Nutritional Appearance: well nourished Orientation/consciousness: patient oriented x3 and No confusion Limitations: no limitations HEENT: Head: Yes normal to inspection, Yes normocephalic and Yes atraumatic Ears: hearing grossly normal bilaterally, external ears normal, TM's normal bilaterally and EAC's normal General nose exam: Normal external nose present Face and sinus: Yes normal facial exam and Yes sinuses nontender Mouth: Normal oral and palatal mucosa present Throat: Yes posterior oropharynx normal Eyes: Conjunctivae: conjunctivae normal Pupils: Equal, round and reactive pupils present EOM: EOMs intact bilaterally and No Nystagmus present Neck: Neck: Yes full ROM, Yes no lymphadenopathy and Yes supple Resp: Effort & Inspection: normal respiratory effort and able to speak in complete sentences Auscultation: clear to auscultation bilaterally, no crackles, no rales, no rhonchi and no wheezes Cardio: Rate: regular rate Rhythm: regular rhythm Heart sounds: S1 normal heart sound present and S2 normal heart sound present GI: Inspection: Yes normal to inspection Palpation (GI): Soft to palpation, nontender, no guarding and not rigid Percussion: Yes normal to percussion Auscultation: normal bowel sounds Skin: General skin exam: no rashes or lesions noted Neuro: General: patient oriented x3 and No confusion Cranial nerves: Yes CN's II-XII intact bilaterally, Yes Facial sensation intact/muscles of mastication intact, Yes Equal, round and reactive pupils present, Yes Bilaterally intact EOM present, Yes Nystagmus not present, Yes Normal facial strength present, Yes Midline tongue present, Yes Normal hearing present, Yes Ability to bilaterally rotate head present, Yes Ability to bilaterally elevate shoulders present and No Nystagmus present Cognition (Neuro): normal cognition Speech: No Abnormal speech present Gait exam (Neuro): Normal gait present Motor exam (neuro): 5/5 motor strength present throughout and Pronator motor function not present Deep tendon reflexes (DTR's): Right brachioradialis reflex intensity grade: 1+, Left brachioradialis reflex intensity grade: 1+, Right patellar reflex intensity grade: 1+ and Left patellar reflex intensity grade: 1+ Coordination: svafoo-ak-znqu test normal and ednf-bs-lwmm test normal Pupils: Normal pupillary reactivity/response: bilateral Extrem: General: Yes normal to inspection and Yes full ROM Psych: Appearance: grossly normal Affect: normal affect Attitude: cooperative Thought process: Normal thought process present Course Course Course Narrative: 61-year-old female presents for episodes of syncope that are similar to other episodes she has had for the last 6 months. Patient is followed by . Benign neurological exam. patient has a negative workup here, negative flu, negative COVID, not , negative urine, EKG shows no ischemia, negative troponin, chest x-ray shows nothing acute, labs are normal, D-dimer is normal. Discussed case with Katrina Romeo, Stroke RN, who obtained neurology note from April [address] Christie did not think this was a stroke discussed admission for observation in the face of negative workup, verses observation at home and follow-up early next week with Neurology. Patient opted for for follow-up with Neurology, counseled her to call on Friday, counseled her to return to emergency room for any new or concerning symptoms. Patient verbalized agreement understanding of the plan. FINDINGS: There is no evidence of acute intracranial hemorrhage or territorial infarction. No abnormal mass-effect or midline shift is seen. De Jesus to white matter differentiation is well preserved. No extra-axial fluid collections are identified. The ventricles are normal in size. There is no abnormal attenuation within the brain parenchyma. There is no osseous abnormality. The mastoid air cells and visualized portions of the paranasal sinuses are well-aerated. CT/CT head/brain wo con IMPRESSION: No acute intracranial pathology. ? Reevaluation(s) Reevaluation #1: Nurse walked patient up and down the [place], patient had a steady gait, no ataxia. MDM - Syncope Lab Data Result diagrams: 07/06/21 10:58 07/06/21 10:58 Labs: Lab Results 07/06/21 07/06/21 07/06/21 Range/Units 10:58 10:58 10:58 WBC 6.9 (4.8-10.8) X10*3/uL RBC 4.38 (4.20-5.50) X10*6/uL Hgb 13.2 (12.0-16.0) g/dl Hct 39.0 (37.0-47.0) % MCV 89.0 (80.0-98.0) fL MCH 30.1 (27.0-33.0) pg MCHC 33.8 (31.0-35.0) g/dl RDW 11.9 (11.0-16.0) % Plt Count 333 (160-400) X10*3/uL MPV 8.9 L (9.4-12.3) fL Immature Gran % (Auto) 0.9 H (0.0-0.4) % Neut % (Auto) 61.4 (45-73) % Lymph % (Auto) 29.6 (20-40) % [place] % (Auto) 6.9 (2-11) % Eos % (Auto) 0.6 (0-4) % Baso % (Auto) 0.6 (0-2) % Lymph # (Auto) 2.1 (1.2-4.9) X10*3/uL [place] # (Auto) 0.5 (0.1-1.2) X10*3/uL Eos # (Auto) 0.0 (0.0-0.4) X10*3/uL Baso # (Auto) 0.0 (0.0-0.2) X10*3/uL Abs Immat Gran (auto) 0.06 H (0.00-0.03) X10*3/uL Absolute Neuts (auto) 4.3 (2.0-8.3) x10*3/uL Absolute Nucleated RBC 0.000 (0.0-0.012) X10*3/uL Nucleated RBC % (auto) 0.0 (0.0-0.2) /100WBC D-Dimer High Sensitivty NG/ML Sodium 137 (135-145) mmol/L Potassium 4.7 (3.3-5.1) mmol/L Chloride 103 (96-108) mmol/L Carbon Dioxide 29 (22-29) mmol/L Anion Gap 10 L (12-20) BUN 6 L (9-16) mg/dL Creatinine 0.69 (0.5-1.4) mg/dL Estim Creat Clear Calc 114.3 Estimated GFR > 60 Random Glucose 82 (60-115) mg/dL Calcium 9.5 (8.4-10.2) mg/dL Troponin I High Sens < 3.5 (<3.5-17.0) ng/L Urine Color Urine Appearance Urine pH (5.0-8.0) Ur Specific [place] (1.005-1.025) Urine Protein (NEG-TRACE) MG/DL Urine Glucose (UA) (NEG) MG/DL Urine Ketones (NEG) MG/DL Urine Blood (NEG) Urine Nitrite (NEG) Ur Leukocyte Esterase (NEG) Urine RBC (0) /HPF Urine WBC (0-4) /HPF Ur Squamous Epith Cells /LPF Urine Bacteria /LPF Urine Test (NEGATIVE) COVID-19 (LEVON) (Negative) COVID-19 Clin Com Influenza Type A (HERLINDA) (Negative) Influenza Type B (HERLINDA) (Negative) Influenza A & B Note 07/06/21 07/06/21 07/06/21 Range/Units 13:28 13:28 13:42 WBC (4.8-10.8) X10*3/uL RBC (4.20-5.50) X10*6/uL Hgb (12.0-16.0) g/dl Hct (37.0-47.0) % MCV (80.0-98.0) fL MCH (27.0-33.0) pg MCHC (31.0-35.0) g/dl RDW (11.0-16.0) % Plt Count (160-400) X10*3/uL MPV (9.4-12.3) fL Immature Gran % (Auto) (0.0-0.4) % Neut % (Auto) (45-73) % Lymph % (Auto) (20-40) % [place] % (Auto) (2-11) % Eos % (Auto) (0-4) % Baso % (Auto) (0-2) % Lymph # (Auto) (1.2-4.9) X10*3/uL [place] # (Auto) (0.1-1.2) X10*3/uL Eos # (Auto) (0.0-0.4) X10*3/uL Baso # (Auto) (0.0-0.2) X10*3/uL Abs Immat Gran (auto) (0.00-0.03) X10*3/uL Absolute Neuts (auto) (2.0-8.3) x10*3/uL Absolute Nucleated RBC (0.0-0.012) X10*3/uL Nucleated RBC % (auto) (0.0-0.2) /100WBC D-Dimer High Sensitivty NG/ML Sodium (135-145) mmol/L Potassium (3.3-5.1) mmol/L Chloride (96-108) mmol/L Carbon Dioxide (22-29) mmol/L Anion Gap (12-20) BUN (9-16) mg/dL Creatinine (0.5-1.4) mg/dL Estim Creat Clear Calc Estimated GFR Random Glucose (60-115) mg/dL Calcium (8.4-10.2) mg/dL Troponin I High Sens (<3.5-17.0) ng/L Urine Color STRAW Urine Appearance HAZY Urine pH 7.5 (5.0-8.0) Ur Specific [place] 1.015 (1.005-1.025) Urine Protein NEG (NEG-TRACE) MG/DL Urine Glucose (UA) NEG (NEG) MG/DL Urine Ketones NEG (NEG) MG/DL Urine Blood TRACE (NEG) Urine Nitrite NEG (NEG) Ur Leukocyte Esterase NEG (NEG) Urine RBC 1-4 (0) /HPF Urine WBC 0-2 (0-4) /HPF Ur Squamous Epith Cells 3+ /LPF Urine Bacteria TRACE /LPF Urine Test (NEGATIVE) COVID-19 (LEVNO) Negative (Negative) COVID-19 Clin Com See Note Influenza Type A (HERLINDA) Negative (Negative) Influenza Type B (HERLINDA) Negative (Negative) Influenza A & B Note See Note 07/06/21 07/06/21 Range/Units 13:42 14:52 WBC (4.8-10.8) X10*3/uL RBC (4.20-5.50) X10*6/uL Hgb (12.0-16.0) g/dl Hct (37.0-47.0) % MCV (80.0-98.0) fL MCH (27.0-33.0) pg MCHC (31.0-35.0) g/dl RDW (11.0-16.0) % Plt Count (160-400) X10*3/uL MPV (9.4-12.3) fL Immature Gran % (Auto) (0.0-0.4) % Neut % (Auto) (45-73) % Lymph % (Auto) (20-40) % [place] % (Auto) (2-11) % Eos % (Auto) (0-4) % Baso % (Auto) (0-2) % Lymph # (Auto) (1.2-4.9) X10*3/uL [place] # (Auto) (0.1-1.2) X10*3/uL Eos # (Auto) (0.0-0.4) X10*3/uL Baso # (Auto) (0.0-0.2) X10*3/uL Abs Immat Gran (auto) (0.00-0.03) X10*3/uL Absolute Neuts (auto) (2.0-8.3) x10*3/uL Absolute Nucleated RBC (0.0-0.012) X10*3/uL Nucleated RBC % (auto) (0.0-0.2) /100WBC D-Dimer High Sensitivty < 150 NG/ML Sodium (135-145) mmol/L Potassium (3.3-5.1) mmol/L Chloride (96-108) mmol/L Carbon Dioxide (22-29) mmol/L Anion Gap (12-20) BUN (9-16) mg/dL Creatinine (0.5-1.4) mg/dL Estim Creat Clear Calc Estimated GFR Random Glucose (60-115) mg/dL Calcium (8.4-10.2) mg/dL Troponin I High Sens (<3.5-17.0) ng/L Urine Color Urine Appearance Urine pH (5.0-8.0) Ur Specific [place] (1.005-1.025) Urine Protein (NEG-TRACE) MG/DL Urine Glucose (UA) (NEG) MG/DL Urine Ketones (NEG) MG/DL Urine Blood (NEG) Urine Nitrite (NEG) Ur Leukocyte Esterase (NEG) Urine RBC (0) /HPF Urine WBC (0-4) /HPF Ur Squamous Epith Cells /LPF Urine Bacteria /LPF Urine Test NEGATIVE (NEGATIVE) COVID-19 (LEVON) (Negative) COVID-19 Clin Com Influenza Type A (HERLINDA) (Negative) Influenza Type B (HERLINDA) (Negative) Influenza A & B Note ECG Data Interpretation: Normal sinus at a rate of 66, AR interval 152, QRS 76, QTC 387, no ST depressions or elevations, flipped T-wave in V1 and lead 3. Discharge Plan Discharge Clinical Impression: Syncope Patient Disposition: Home, Self-Care Additional Instructions: PLease call Neurology at [phone] on Friday for a folow up appointment. I know you have an appointment in early July, However, I want you to call the neurologist in tell them that you are seen in the emergency room for loss of consciousness, and they can decide if they will see you sooner. If you have any more loss of consciousness, or any other symptoms including visual changes, gait disturbance, nausea vomiting, sudden severe headache, chest pain, shortness of breath, abdominal pain, return to the emergency room immediately. You must have your patient boyfriend with you at all times this week and. Prescriptions: No Action metronidazole [Metrogel Vaginal] 0.75 % gel 1 appful vaginal BEDTIME 5 Days Qty: 70 0RF zgtimrgsid-robnvyvzrzkrd-sfsd [Fioricet] 50-300-40 mg capsule 1 cap PO Q8H PRN (Reason: pain) Qty: 10 0RF benzonatate [Tessalon Perles] 100 mg capsule 100 mg PO TID PRN (Reason: cough) Qty: 14 0RF oxybutynin chloride 10 mg tablet extended release 24hr 10 mg PO DAILY 0RF montelukast 10 mg tablet 10 mg PO BEDTIME 0RF citalopram 40 mg tablet 40 mg PO DAILY 0RF cetirizine 10 mg tablet 10 mg PO DAILY 0RF fluticasone propionate 50 mcg/actuation spray,suspension intranasal 0RF nitrofurantoin macrocrystal 50 mg capsule 0 mg PO 0RF ergocalciferol (vitamin D2) 1,250 mcg (50,000 unit) capsule 1,250 mcg PO QWEEK 0RF paroxetine HCl 10 mg tablet 10 mg PO QAM 0RF Referrals: Donald Christie MD [Physician] -
[2021-07-06 16:14] VITALS: BP 141/88; PULSE 72; RESP 17; TEMP 36.8; O2SAT 99
== END 2021-07-06 16:59 | disposition home or self-care (01) ==
PROVIDERS: Physician Assistant; Emergency Provider Emergency Medicine Emergency Medical Services; PCP Internal Medicine
DX: R55 Syncope and collapse (principal); R51.9 Headache, unspecified; R42 Dizziness and giddiness; Z79.899 Other long term (current) drug therapy; Z20.822 Contact with and (suspected) exposure to COVID-19
CPT/HCPCS: 36415; 70450; 71045; 80048; 81001; 81025; 84484; 85025; 85379; 87502; 87635; 93005; 99284; 99285

== ENCOUNTER 2021-07-12 08:32 | Outpatient (REF) | payer OTHER, SELFPAY ==
[2021-07-12 18:30] LABS: CT PCR NOT DETECTED (Not Detect.); NG PCR NOT DETECTED (Not Detect.)
[2021-07-13 13:10] LABS: BV Int Neg Control Negative (Negative); BV Int Pos Control Positive (Positive)
[2021-07-17 02:06] LABS: HPV 16 RNA NOT DETECTED (NOT DETECTED); HPV mRNA E6/E7 rflx Detected (Not Detected)
== END 2021-07-12 08:33 | disposition home or self-care (01) ==
LOC: HO.LAB 08:32
PROVIDERS: PCP Internal Medicine; Visit Provider Advanced Practice Midwife
DX: Z01.419 Encounter for gynecological examination (general) (routine) without abnormal findings (principal); Z11.51 Encounter for screening for human papillomavirus (HPV); Z20.2 Contact with and (suspected) exposure to infections with a predominantly sexual mode of transmission
CPT/HCPCS: 87480; 87491; 87510; 87591; 87624; 87625; 87660; 88142

== ENCOUNTER 2021-09-10 13:36 | Outpatient (REF) | payer OTHER, SELFPAY | END 2021-09-10 13:37 | disposition home or self-care (01) | LOC: HO.LAB 13:36 | PROVIDERS: Visit Provider Obstetrics & Gynecology | DX: R87.612 Low grade squamous intraepithelial lesion on cytologic smear of cervix (LGSIL) (principal) | CPT/HCPCS: 57454; 88305; 88341; 88342; 88360 ==

== ENCOUNTER → 2021-09-19 14:25 | Outpatient (BNVA) | payer OTHER, SELFPAY | PROVIDERS: Visit Provider Obstetrics & Gynecology | DX: N87.1 Moderate cervical dysplasia (principal); Z98.890 Other specified postprocedural states | CPT/HCPCS: 99212 ==

== ENCOUNTER 2021-10-05 09:48 | Day surgery (SDC) | payer OTHER, SELFPAY ==
--- NOTE | 2021-10-03 12:44 | HO.ANESPROP2 ---
Documented by User: Sabrina Falcon NP 10/03/21 12:45 HPI - Anesthesia Eval Consult details Narrative: 41yo F for LEEP cone with post cone ECC Syncope 06/2021 - was supposed to f/u with Neuro PMFSH Active Problems Active Problems: All Active Problems (Updated 10/01/21 @ 10:58 by Johanna Harrison RN) Potential exposure to STD (Acute) Pelvic pain in female (Acute) Galactorrhea (Acute) Vaginal discharge (Acute) Dyspareunia, female (Acute) Encounter for annual routine gynecological examination (Acute) LGSIL on Pap smear of cervix (Acute) LESLEY II (cervical intraepithelial neoplasia II) (Acute) Abdominal wall asymmetry (Acute) Past Medical History Medical History Abdominal wall asymmetry Anxiety Chronic fatigue syndrome Depression Insomnia Urinary incontinence Vitamin D deficiency Family History Family History Mother Diabetes mellitus Sister Diabetes mellitus Maternal Grandmother Diabetes mellitus Father HTN (hypertension) Colon polyp Schizophrenia Paternal Aunt Breast cancer Maternal Aunt Breast cancer Paternal Grandfather Colon cancer Maternal Aunt Stomach cancer Surgical History Surgical History Hx of prior ablation treatment Hx of tubal ligation Social History Social History Alcohol intake: current Alcohol intake frequency: holidays/special occasions only Patient Tobacco Use Status: Never used Tobacco Use of substances other than those prescribed or required for medical reasons: No Are you DNR?: No Advance Directives: No Advance Directives Information Provided: Yes Recently lost weight without trying: No Nutrition Risks: No Nutritional Risk Gender identity: Female Meds Allergies Allergy/AdvReac Type Severity Reaction Status Date / Time adhesive tape Allergy Mild Rash Verified 09/28/21 15:15 Home Medications Medication Instructions Recorded Confirmed Last Taken Type cetirizine 10 mg tablet 10 mg PO DAILY 01/28/20 09/28/21 Unknown History citalopram 40 mg tablet 40 mg PO DAILY 01/28/20 09/28/21 Unknown History fluticasone propionate 50 intranasal 01/28/20 07/19/20 Unknown History mcg/actuation nasal spray,suspension montelukast 10 mg tablet 10 mg PO BEDTIME 01/28/20 09/28/21 Unknown History oxybutynin chloride 10 mg 10 mg PO DAILY 01/28/20 09/28/21 Unknown History tablet,extended release 24 hr ergocalciferol (vitamin D2) 1,250 1,250 mcg PO QWEEK 03/13/21 09/28/21 Unknown History mcg (50,000 unit) capsule clonazepam 0.5 mg tablet 1 tab PO BID 10/01/21 10/01/21 Unknown History nitrofurantoin macrocrystal 50 mg 1 cap PO NEEDED 10/01/21 10/01/21 Unknown History capsule paroxetine HCl 20 mg tablet 1 tab PO QAM 10/01/21 10/01/21 Unknown History zolpidem 10 mg tablet 1 tab PO BEDTIME PRN Sleep 10/01/21 10/01/21 Unknown History Exam Exam Date and Time: October 03, 2021 1244 Narrative Narrative: EKG 06/2021 Vent. Rate : 066 BPM ? ? Atrial Rate : 066 BPM ?? P-R Int : 152 ms? QRS Dur : 076 ms ? ? QT Int : 370 ms ? ? ? P-R-T Axes : 032 -03 017 degrees ?? QTc Int : 387 ms ? Normal sinus rhythm Normal ECG When compared with ECG of 19-OCT-2020 16:32, No significant change was found Assessment and Plan Assessment Anesthesia Assessment: Chart Reviewed Documented by User: Alexandria Villarreal MD 10/05/21 10:48 [facility] Active Problems Active Problems: All Active Problems (Updated 10/01/21 @ 10:58 by Johanna Harrison RN) Potential exposure to STD (Acute) Pelvic pain in female (Acute) Galactorrhea (Acute) Vaginal discharge (Acute) Dyspareunia, female (Acute) Encounter for annual routine gynecological examination (Acute) LGSIL on Pap smear of cervix (Acute) LESLEY II (cervical intraepithelial neoplasia II) (Acute) Abdominal wall asymmetry (Acute) Anxiety/Depression Allergic rhinitis Past Medical History Medical History Abdominal wall asymmetry Anxiety Chronic fatigue syndrome Depression Insomnia Urinary incontinence Vitamin D deficiency Family History Family History Mother Diabetes mellitus Sister Diabetes mellitus Maternal Grandmother Diabetes mellitus Father HTN (hypertension) Colon polyp Schizophrenia Paternal Aunt Breast cancer Maternal Aunt Breast cancer Paternal Grandfather Colon cancer Maternal Aunt Stomach cancer Family history of problems with anesthesia: No Surgical History Surgical History Hx of prior ablation treatment Hx of tubal ligation History of Problems with Anesthesia: No Social History Social History Alcohol intake: current Alcohol intake frequency: holidays/special occasions only Patient Tobacco Use Status: Never used Tobacco Use of substances other than those prescribed or required for medical reasons: No Are you DNR?: No Advance Directives: No Advance Directives Information Provided: Yes Recently lost weight without trying: No Nutrition Risks: No Nutritional Risk Gender identity: Female Meds Allergies Allergy/AdvReac Type Severity Reaction Status Date / Time adhesive tape Allergy Mild Rash Verified 09/28/21 15:15 Home Medications Medication Instructions Recorded Confirmed Last Taken Type cetirizine 10 mg tablet 10 mg PO DAILY 01/28/20 09/28/21 Unknown History citalopram 40 mg tablet 40 mg PO DAILY 01/28/20 09/28/21 Unknown History fluticasone propionate 50 intranasal 01/28/20 07/19/20 Unknown History mcg/actuation nasal spray,suspension montelukast 10 mg tablet 10 mg PO BEDTIME 01/28/20 09/28/21 Unknown History oxybutynin chloride 10 mg 10 mg PO DAILY 01/28/20 09/28/21 Unknown History tablet,extended release 24 hr ergocalciferol (vitamin D2) 1,250 1,250 mcg PO QWEEK 03/13/21 09/28/21 Unknown History mcg (50,000 unit) capsule clonazepam 0.5 mg tablet 1 tab PO BID 10/01/21 10/01/21 Unknown History nitrofurantoin macrocrystal 50 mg 1 cap PO NEEDED 10/01/21 10/01/21 Unknown History capsule paroxetine HCl 20 mg tablet 1 tab PO QAM 10/01/21 10/01/21 Unknown History zolpidem 10 mg tablet 1 tab PO BEDTIME PRN Sleep 10/01/21 10/01/21 Unknown History Exam Height,Weight and Vital Signs: Height 5 ft 10 in Weight 72.575 kg Vital Signs Temp Pulse Resp BP Pulse Ox O2 Del Method 10/05/21 10:20 98.4 F 72 16 121/73 95 Room Air Pertinent Lab Results Pertinent Lab Results: Lab Results 10/05/21 Range/Units 10:03 Urine Test NEGATIVE (NEGATIVE) Airway Mallampati Class: II TM Dist: >3cm Neck ROM: Full Loose/Missing/Broken Teeth: No (Per patient) Heart: RRR Lungs: CTAB Assessment and Plan Assessment Anesthesia Assessment: Anesthesia Plan Discussed Final Anesthetic Review Family History of Problems with Anesthesia: No History of Problems with Anesthesia: No NPO: Yes ASA Class: II Final Preanesthetic Review: No Changes in Pt Med Stat, Meds/Allgs Chart Reviewed, Consent Obtained/Reviewed and Anes Risks/Benef Reviewed Patient Risk: Low Procedure Risk: Low Assessment/Block/Sedation in SS: Assess/Block/Sedation-SS Anesthetic Plan Anesthetic Plan: GA Disposition: Standard PACU
[2021-10-05 10:08] VITALS: BMI 22.9
--- NOTE | 2021-10-05 10:08 | MHC.SHP ---
Pre-Procedural Eval Section A Date of Service: 10/05/21 The patient is an INPATIENT: No Changes since office visit: No Cold of Flu in the past 2 weeks, No New Medical Problems, No Changes in Medication and No Patient answered all questions The History & Physical has been completed within 30 days and I have reviewed it.: Yes Section B Chief Complaint: mod cervical dysplasia Allergies: Allergies Allergy/AdvReac Type Severity Reaction Status Date / Time adhesive tape Allergy Mild Rash Verified 09/28/21 15:15 Plan Diagnosis/Plan: Unchanged I have reviewed the history and physical and performed a pertinent physical examination on my patient. No changes have occurred unless specified.
[2021-10-05 10:20] VITALS: BP 121/73; PULSE 72; RESP 16; TEMP 36.9; O2SAT 95
[2021-10-05] MEDS: Lactated Ringers 1,000 ML 100 ML IVCONT (10:26)
[2021-10-05 10:33] LABS: UPreg QC Valid YES; Urine Pregnancy NEGATIVE (NEGATIVE)
--- NOTE | 2021-10-05 11:32 | PM.OP ---
Brief Operative Note Date of Service: 10/05/21 Pre-op diagnosis: LESLEY 2 Post-op diagnosis: same Procedure: LEEP CONE with post CONE ECC Surgeon: Aidan Gonzalez MD Anesthesia: GLMA, local and other (Paracervical block) Was an Wire Loop Machine Operator used for this Procedure?: No Estimated blood loss (mL): 0 Pathology: other (Ant Cerv lip (2 specimen), deeper anterior cervical lip excision, Endocx, Post cone ECC) Condition: stable Disposition: other (Home)
--- NOTE | 2021-10-05 11:33 | W.PM.OPN ---
Operative Note Operative Note Date of Service: 10/05/21 Narrative: Pre op diagnosis: LESLEY 2 Operation: Colposcopy, Loop electrical excision procedure cone, post cone ECC Postop diagnosis: the same Quantitative blood loss: Minimal Surgeon: Aidan Gonzalez MD, FACOG Greaser And Oiler: None Pathology: Anterior cervical lip in 2 specimen, posterior cervical lip, anterior cervical lip deeper layer excision, endocervix, post cone endo cervical curettage Complications: none Anesthesia: LMAG and Para cervical block Procedure: The patient was put in a dorsal lithotomy position, scrubbed and draped in the usual sterile fashion. A speculum was inserted inside the patient's vagina. The cervix is assessed using the colposcope with acetic acid , the lesions were seen, the squamocolumnar junction was not completely observed, and the anterior cervical pathology with previous biopsy at 11 and 12:00 o'clock showing LESLEY 2 was very close to the endocervical canal. 20 x 5 mm size loop was selected based upon the diameter of the lesion. Lugol solution was used to outline the lesions and area of the transformation zone order to be removed 10 cc of xylocaine with epinephrine were injected submucosally into the surface of the cervix (ectocervix) at the 3, 6, 9, and 12 o'clock positions. The electrosurgical generator is set at 30 to 40 linares on blend 1. The loop is carefully passed simultaneously around and under the transformation zone, in order to ensure excision of the entire lesions at least 5 mm far from the specimen margins . The loop was allowed to glide through the cervix anterior cervical lip from one side to the other, allowing the cutting current to divide the tissue, the anterior cervical lip was excised in 2 pieces, and additional deeper layer with wider margins of the anterior cervical lip was excised afterwards to ensure inclusion of all the anterior cervical pathology. Since anterior cervical pathology was seen close to the endocervical canal and the entire endo cervical canal was not visualized well, endo cervical disease could be beyond the reach of the loop, in spite of ECC in the office being negative, the decision was to proceed with additional tissue excision from this area with a smaller-diameter loop. An endo cervical curettage is performed following completion of excision, and hemostasis is obtained with a Ball electrode or regular tip cautery. At the end, Monsel's solution was applied to the cone bed. The patient tolerated the procedure well and, all instruments were taken out of the patient vaginal cavity, and the patient was transferred to the PACU in stable condition.
[2021-10-05 11:39] VITALS: BP 129/78; PULSE 62; RESP 20; TEMP 36.7; O2SAT 100
[2021-10-05 11:44] VITALS: BP 127/76; PULSE 82; RESP 20; O2SAT 100
[2021-10-05 11:49] VITALS: BP 118/80; PULSE 74; RESP 16; O2SAT 100
[2021-10-05 11:54] VITALS: BP 119/80; PULSE 66; RESP 16; O2SAT 100
[2021-10-05 12:09] VITALS: BP 116/71; PULSE 67; RESP 16; O2SAT 100
== END 2021-10-05 12:30 | disposition home or self-care (01) ==
PROVIDERS: PCP Internal Medicine; Visit Provider Obstetrics & Gynecology
PROC: 0UBC7ZZ Excision of Cervix, Via Natural or Artificial Opening (ICD-10-PCS; CPT 57522; principal; 2021-10-05 13:20)
DX: N87.1 Moderate cervical dysplasia (principal); N72 Inflammatory disease of cervix uteri; E55.9 Vitamin D deficiency, unspecified; F32.A Depression, unspecified; R32 Unspecified urinary incontinence; Z98.51 Tubal ligation status; Z79.899 Other long term (current) drug therapy
CPT/HCPCS: 57461; 81025; 88300; 88307; J1100; J2250; J2405; J3010

== ENCOUNTER → 2021-10-18 10:18 | Outpatient (BNVA) | payer OTHER, SELFPAY | PROVIDERS: PCP Internal Medicine; Visit Provider Obstetrics & Gynecology | DX: N87.1 Moderate cervical dysplasia (principal) | CPT/HCPCS: 99212 ==

== ENCOUNTER 2022-04-16 07:52 | Outpatient (REF) | payer OTHER, SELFPAY ==
[2022-04-18 00:39] LABS: HPV mRNA E6/E7 rflx Not Detected (Not Detected)
== END 2022-04-16 07:53 | disposition home or self-care (01) ==
LOC: HO.LNP 07:52
PROVIDERS: PCP Internal Medicine; Visit Provider Obstetrics & Gynecology
DX: Z12.4 Encounter for screening for malignant neoplasm of cervix (principal); Z11.51 Encounter for screening for human papillomavirus (HPV); N87.1 Moderate cervical dysplasia
CPT/HCPCS: 87624; 88142; 99212

== ENCOUNTER 2022-10-01 07:47 | Outpatient (AMB) | payer OTHER, SELFPAY ==
--- NOTE | 2022-10-01 07:52 | MHC.OFFVIS ---
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 No complaints. Last Pap/HPV was negative in 04/08 No previous screening Mammogram Left pelvic ultrasound done in 04/07 showed a 1.7 cm posterior myoma, the patient has no pressure symptoms, no pelvic pain or abnormal uterine bleeding PFSH Medical History Abdominal wall asymmetry Anxiety Chronic fatigue syndrome LESLEY II (cervical intraepithelial neoplasia II) Depression Insomnia Urinary incontinence Vitamin D deficiency Surgical History Hx of prior ablation treatment Hx of tubal ligation Family History Mother Diabetes mellitus Sister Diabetes mellitus Maternal Grandmother Diabetes mellitus Father HTN (hypertension) Colon polyp Schizophrenia Paternal Aunt Breast cancer Maternal Aunt Breast cancer Paternal Grandfather Colon cancer Maternal Aunt Stomach cancer Social History Household Members: Significant Other and Children Housing: House Alcohol intake: current Alcohol intake frequency: holidays/special occasions only Patient Tobacco Use Status: Never used Tobacco Current occupational status: employed 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 Sexually active: Yes Sexual orientation: Straight/Heterosexual Gender identity: Female Female Reproductive History Menstrual Age of Menarche: 16 Date of last menstrual period: 09/21/22 control method: permanent sterilization Total pregnancies: 4 Full term: 4 Number of Living Children: 4 Date of last pap smear: 04/16/22 Review of Systems Const All systems reviewed & are unremarkable except as noted in HPI and below Card Reports as per HPI Resp Reports as per HPI GI Reports as per HPI and Reports no additional complaints Reports as per HPI Physical Exam Vital Signs: Last Vital Signs BP 108/66 10/01/22 07:53 BMI result Body Mass Index 21.5 Const General: cooperative, healthy appearing and comfortable Chest Chest palpation & inspection: normal inspection of the chest and normal palpation of entire chest wall Breast/axilla inspection: normal inspection of the breasts and normal inspection of the axillae Breast/axilla palpation: normal palpation of the breasts, normal palpation of the axillae and no axillary lymphadenopathy Resp Effort & Inspection: normal respiratory effort Auscultation: clear to auscultation bilaterally Percussion: percussion normal Cardio Palpation: normal PMI Rate: regular rate Rhythm: regular rhythm Heart sounds: no murmurs and no rubs Peripheral pulses: Peripheral pulses 2+ throughout GI Inspection: Yes normal to inspection Palpation (GI): Soft to palpation, nontender, no guarding, not rigid and No hepatosplenomegaly present Percussion: Yes normal to percussion Auscultation: normal bowel sounds Rectal Exam - Female: deferred General: Yes bladder normal to palpation External Female Exam: No lesion Speculum Exam - Vagina: normal appearance of the vagina, normal palpation, normal vaginal discharge and not erythematous Speculum Exam - Cervix: normal appearance of the cervix and normal palpation Bimanual exam- vagina & uterus: normal bimanual exam, normal palpation, uterine size normal, bladder normal to palpation, consistency normal and normal palpation Bimanual Exam- Adnexa, other: normal adnexae, no masses and no tenderness Assessment & Plan Assessment & Plan (1) Well woman exam: Code(s): Z01.419 - Encounter for gynecological examination (general) (routine) without abnormal findings Plan: Cotesting not indicated. Mammogram ordered. Counseled the patient about the recommended dietary allowance of 1000 mg of Calcium & 600 IU of vitamin D. The patient was instructed to perform monthly self-breast exams and to schedule an annual exam in a year; All questions answered and the patient verbalized understanding. Instructed the patient to schedule annual exam in a year (2) Uterine myoma: Code(s): D25.9 - Leiomyoma of uterus, unspecified Plan: Pelvic ultrasound ordered. Instructions given the patient to schedule a 2 week ultrasound follow-up appointment. All questions answered, the patient verbalized understanding Orders: Orders MM screening mammo BI Today Z12.31 - Encounter for screening mammogram for malignant neoplasm of breast US pelvic and transvaginal Today Z01.419 - Encounter for gynecological examination (general) (routine) without abnormal findings Coding Level of Care Code Est Pt Prev Care 40-64y(78623) Diagnoses Well woman exam Z01.419 Uterine myoma D25.9
[2022-10-01 07:53] VITALS: BP 108/66; BMI 21.5
== END 2022-10-01 08:19 | disposition home or self-care (01) ==
LOC: HO.HWS 07:47
PROVIDERS: PCP Internal Medicine; Visit Provider Obstetrics & Gynecology
DX: Z01.419 Encounter for gynecological examination (general) (routine) without abnormal findings (principal); D25.9 Leiomyoma of uterus, unspecified
CPT/HCPCS: 99396

== ENCOUNTER → 2022-10-01 07:47 | Outpatient (BNVA) | payer OTHER, SELFPAY | PROVIDERS: PCP Internal Medicine; Visit Provider Obstetrics & Gynecology ==

== ENCOUNTER 2022-10-10 10:46 | Outpatient (REF) | payer OTHER, SELFPAY ==
--- NOTE | ~2022-10-10 | US_ITS ---
EXAMINATION: US PELVIS CLINICAL INFORMATION: Uterine myoma, last menstrual period 09/23/2022, colposcopy. COMPARISON: None available. TECHNIQUE: Ultrasound of the pelvis is performed using both transabdominal and transvaginal transducers along with Doppler. Transvaginal imaging is performed due to inadequate visualization transabdominally. FINDINGS: Uterus: The uterus is heterogeneous and measures 8.6 x 4.8 x 6.4 cm. Previously identified fibroid is not identified today. The double wall endometrial thickness is 0.9 cm. Endometrium appears heterogeneous and complex. Adnexa: Right ovary measures 2.6 x 1.7 x 2.0 cm, volume 4.8 mL and is seen only on limited transabdominal ultrasound images. Left ovary measures 3.5 x 1.8 x 2.1 cm, volume 6.7 mL and is seen only on limited transabdominal ultrasound images. No significant free fluid. US/US pelvic and transvaginal IMPRESSION: 1. Heterogeneous uterus. Previously identified fibroid is not identified today. 2. Endometrial thickness is 0.9 cm. Endometrium appears heterogeneous and complex. 3. Bilateral ovaries seen only on limited transabdominal ultrasound images.
== END 2022-10-10 10:47 | disposition home or self-care (01) ==
LOC: HO.US 10:46
PROVIDERS: Visit Provider Obstetrics & Gynecology
DX: D25.9 Leiomyoma of uterus, unspecified (principal)
CPT/HCPCS: 76830; 76856

== ENCOUNTER 2022-10-25 08:23 | Outpatient (REF) | payer OTHER, SELFPAY ==
--- NOTE | ~2022-10-25 | MM_ITS ---
EXAMINATION: MM SCREENING DIGITAL BREAST TOMOSYNTHESIS, BILATERAL CLINICAL INFORMATION: Screening. Asymptomatic. COMPARISON: Mammography: This is a baseline study TECHNIQUE: Digital breast tomosynthesis is performed in both the craniocaudal and mediolateral oblique views along with computer-aided detection (CAD). Synthesized 2D images are generated from the tomosynthesis. FINDINGS: The breasts are heterogeneously dense, which may obscure small masses (ACR BI-RADS breast composition Category c). There are no significant masses, abnormal calcifications, or other abnormalities. MM/MM tomosynthesis screening BI IMPRESSION: No mammographic evidence of malignancy. ASSESSMENT: BI-RADS BI-RADS 1 - Negative RECOMMENDATION: Routine annual mammography screening. 1 year F/U This examination should not preclude the clinical evaluation of a suspicious palpable abnormality. This patient's information was entered into a reminder system with a target due date for their next mammogram.
== END 2022-10-25 08:24 | disposition home or self-care (01) ==
LOC: HO.MAMMO 08:23
PROVIDERS: Visit Provider Obstetrics & Gynecology
DX: Z12.31 Encounter for screening mammogram for malignant neoplasm of breast (principal)
CPT/HCPCS: 77063; 77067

== ENCOUNTER → 2022-10-25 09:00 | Outpatient (BNV) | payer OTHER, SELFPAY | PROVIDERS: Visit Provider Radiology Diagnostic Radiology | DX: Z12.31 Encounter for screening mammogram for malignant neoplasm of breast (principal) | CPT/HCPCS: 77063; 77067 ==

== ENCOUNTER 2022-11-26 09:05 | Outpatient (AMB) | payer OTHER, SELFPAY ==
[2022-11-26 09:28] VITALS: BP 114/70; BMI 21.5
--- NOTE | 2022-11-26 09:28 | MHC.OFFVIS ---
Intake Vital Signs 11/26/22 09:28 Height 5 ft 10 in Weight 150 lb BMI 21.5 BP 114/70 Intake Visit Reasons: ultrasound follow up Chief Security Officer Required: No Allergies adhesive tape Allergy (Mild, Verified 11/26/22 09:28) Rash Is last menstrual period known: Yes Last menstrual period: 11/03/22 Post menopausal: No HPI HPI Comments History of Present Illness Details Presenting for follow-up ultrasound regarding a 3.3 cm myoma seen on pelvic ultrasound in 04/05. Pelvic ultrasound showed the following: Uterus: The uterus is heterogeneous and measures 8.6 x 4.8 x 6.4 cm. Previously identified fibroid is not identified today. The double wall endometrial thickness is 0.9 cm. Endometrium appears heterogeneous and complex. Adnexa: Right ovary measures 2.6 x 1.7 x 2.0 cm, volume 4.8 mL and is seen only on limited transabdominal ultrasound images. Left ovary measures 3.5 x 1.8 x 2.1 cm, volume 6.7 mL and is seen only on limited transabdominal ultrasound images. No significant free fluid. [facility] Medical History Insomnia Chronic fatigue syndrome Anxiety LESLEY II (cervical intraepithelial neoplasia II) Abdominal wall asymmetry Urinary incontinence Vitamin D deficiency Depression Surgical History Hx of prior ablation treatment Hx of tubal ligation Family History Mother Diabetes mellitus Sister Diabetes mellitus Maternal Grandmother Diabetes mellitus Father HTN (hypertension) Colon polyp Schizophrenia Paternal Aunt Breast cancer Maternal Aunt Breast cancer Paternal Grandfather Colon cancer Maternal Aunt Stomach cancer Social History Household Members: Significant Other and Children Housing: House Alcohol intake: current Alcohol intake frequency: holidays/special occasions only Patient Tobacco Use Status: Never used Tobacco Current occupational status: employed 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9 - Leiomyoma of uterus, unspecified Plan: Discussed with the patient the finding on the most recent pelvic ultrasound revealing that the previous myoma seen on pelvic ultrasound done on 04/07 is not seen on the current ultrasound. The patient was reassured, all questions answered the patient verbalized understanding. Coding Level of Care Code Est Pt Level 3 (78922) Diagnoses Uterine myoma D25.9
== END 2022-11-26 11:51 | disposition home or self-care (01) ==
PROVIDERS: PCP Internal Medicine; Visit Provider Obstetrics & Gynecology
DX: D25.9 Leiomyoma of uterus, unspecified (principal)
CPT/HCPCS: 99213

== ENCOUNTER → 2022-11-26 09:05 | Outpatient (BNVA) | payer OTHER, SELFPAY | PROVIDERS: PCP Internal Medicine; Visit Provider Obstetrics & Gynecology ==

== ENCOUNTER 2023-05-06 13:30 | Emergency (ER) | payer OTHER, SELFPAY ==
--- NOTE | ~2023-05-06 | CT_ITS ---
EXAMINATION: CT HEAD WITHOUT CONTRAST CLINICAL INFORMATION: Ataxia, incontinence COMPARISON: CT head July 06, 2021 TECHNIQUE: Contiguous axial imaging was performed from the skull base to vertex without intravenous administration of contrast. Coronal and sagittal reformatted images are performed at the CT scanner. [This CT examination was performed using dose optimization techniques as appropriate, variously including the following: *Automated exposure control *Adjustment of mA and/or kV according to patient size (this includes techniques or standardized protocols for targeted exams where dose is matched to indication/reason for exam; i.e. extremities or head) *Use of iterative reconstruction technique] DLP: 662 mGy-cm. FINDINGS: There is no evidence of acute intracranial hemorrhage or territorial infarction. No abnormal mass-effect or midline shift is seen. De Jesus to white matter differentiation is well preserved. No extra-axial fluid collections are identified. The ventricles are normal in size. There is no abnormal attenuation within the brain parenchyma. There is no osseous abnormality. The mastoid air cells and visualized portions of the paranasal sinuses are well-aerated. CT/CT head/brain wo IV con IMPRESSION: No acute intracranial pathology.
[2023-05-06 13:45] VITALS: BP 111/76; PULSE 64; RESP 16; TEMP 36.4; O2SAT 97; BMI 24.1
--- NOTE | 2023-05-06 13:49 | ED.PSYCH ---
HPI - Psych General Chief Complaint: Psychiatric Symptoms Stated Complaint: SI Time Seen by Provider: 05/06/23 13:40 Source: patient Mode of arrival: ambulatory Limitations: no limitations History of Present Illness HPI Narrative: 42-year-old female history of depression, peptic ulcer disease secondary to H pylori, IBS, incontinence, seasonal allergies who presents emergency department for evaluation of insomnia, loss of appetite, weight loss, and suicidal ideation. The patient states she sees our neurologist, Dr. Neumann for abnormal gait , tremors and insomnia. She states that she is seen our neurologist for 2 years but has not gotten the diagnosis. She states that she is frustrated with her neurologist since she continues to have ataxia with no diagnosis. Her insomnia has gotten worse to the point where she is only sleeping for 20 minutes. The patient was taking clonazepam and Ambien at night and these medications were not working. The patient states that her neurologist changed her to trazodone 100 mg at night and has increase the dose to 200 mg at night despite this she still is having difficulty with sleep. She states that she did call her neurologist and stated that she was very frustrated about her inability to sleep and that she was having suicidal thoughts therefore she was advised to come to the emergency department for evaluation. Patient states that she is under increased stress secondary to her relationship with her 20-year-old daughter, 1-year-old grandchild and her daughter's boyfriend. 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 Patient states that she had H pylori and had loss of appetite with a 30 lb weight loss over the past month. She states she still has a decreased appetite. Patient states that she did have an MRI approximately 2 years prior at [facility] ordered by her PCP which was negative. Patient had a CT scan of the brain 07/06/2021 which was normal. She also states she has had blood work through her PCP which is been normal Related Data Home Medications Medication Instructions Recorded Confirmed cetirizine 10 mg tablet 10 mg PO DAILY 01/28/20 09/28/21 citalopram 40 mg tablet 40 mg PO DAILY 01/28/20 09/28/21 fluticasone propionate 50 intranasal 01/28/20 07/19/20 mcg/actuation nasal spray,suspension montelukast 10 mg tablet 10 mg PO BEDTIME 01/28/20 09/28/21 oxybutynin chloride 10 mg 10 mg PO DAILY 01/28/20 09/28/21 tablet,extended release 24 hr ergocalciferol (vitamin D2) 1,250 1,250 mcg PO QWEEK 03/13/21 09/28/21 mcg (50,000 unit) capsule clonazepam 0.5 mg tablet 1 tab PO BID 10/01/21 10/01/21 paroxetine HCl 20 mg tablet 1 tab PO QAM 10/01/21 10/01/21 zolpidem 10 mg tablet 1 tab PO BEDTIME PRN Sleep 10/01/21 10/01/21 Previous Rx's Medication Instructions Recorded clonazepam 1 mg tablet 1 mg PO BEDTIME PRN insomnia #14 05/06/23 tabs Allergies Allergy/AdvReac Type Severity Reaction Status Date / Time adhesive tape Allergy Mild Rash Verified 05/06/23 13:45 Review of Systems Review of Systems: Yes all other systems are reviewed and are negative [facility] Past Medical History [facility] Narrative: Social history: She is here with her boyfriend. She denies tobacco use. She drinks 2 glasses of wine per week. She denies drug use. Medical History Insomnia Chronic fatigue syndrome Anxiety LESLEY II (cervical intraepithelial neoplasia II) Abdominal wall asymmetry Urinary incontinence Vitamin D deficiency Depression Surgical History Hx of prior ablation treatment Hx of tubal ligation Family History Family History Mother Diabetes mellitus Sister Diabetes mellitus Maternal Grandmother Diabetes mellitus Father HTN (hypertension) Colon polyp Schizophrenia Paternal Aunt Breast cancer Maternal Aunt Breast cancer Paternal Grandfather Colon cancer Maternal Aunt Stomach cancer Social History Social History Household Members: Significant Other and Children Housing: House Alcohol intake: current Alcohol intake frequency: holidays/special occasions only Patient Tobacco Use Status: Never used Tobacco Smoked in Last 30 Days: No Use of substances other than those prescribed or required for medical reasons: No Advance Directives: No Advance Directives Information Provided: No Current occupational status: employed 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 Sexual orientation: Straight/Heterosexual Gender identity: Female Physical Exam Vital Signs: Vital Signs: Last Vital Signs Temp 98.3 F 05/06/23 15:34 Pulse 112 H 05/06/23 15:34 Resp 16 05/06/23 15:34 BP 114/61 05/06/23 15:34 Pulse Ox 95 05/06/23 15:34 O2 Del Method Room Air 05/06/23 15:34 BMI result Body Mass Index 24.1 Vital signs were normal Exam: General: Awake, alert in no distress Head: Normocephalic, atraumatic EENT: PERRL, Lids normal, sclera normal, conjunctiva normal, nose normal , ears normal, throat without erythema or exudates Neck: Supple, no adenopathy Lung: breath sounds symmetric, no wheezing, rales or rhonchi Chest: symmetric movement, nontender Heart: regular rate and rhythm, normal S1, S2 no murmurs or rubs Abdomen: soft, non-tender, nondistended, normal bowel sounds Back: no vertebral tenderness, no CVAT Extremities: no deformities, moves all extremities symmetrically Neuro: General: Awake, alert, oriented, normal speech, Cranial nerves: Cranial nerves 2-12 intact Strength: Strength is 5/5 and symmetric Cerebellar: Good [id number]-ib-qcrq-to-finger, good heel to cheng, patient's gait is ataxic, patient is not able to walk a straight line without tipping over, positive Romberg sign, patient falls to the right Psych: Pleasant, cooperative, admits to suicidal ideation, denies homicidal ideation Medications Administered Discontinued Medications Generic Name Dose Route Start Last Admin Trade Name Freq PRN Reason Stop Dose Admin Lorazepam 1 mg 05/06/23 17:31 05/06/23 17:37 Lorazepam 1 Mg Tablet PO 05/06/23 17:32 1 mg ONCE ONE Administration Medical Decision Making Medical Decision Making MDM Narrative: 42-year-old female history of depression, peptic ulcer disease secondary to H pylori, IBS, incontinence, seasonal allergies who presents emergency department for evaluation of insomnia, loss of appetite, weight loss, ataxic and suicidal ideation. The patient has been under stress secondary to difficulties with dealing with her 20-year-old daughter, 1-year-old grandchild and the daughter's boyfriend. Patient states that she is frustrated that she has not gotten a neurologic diagnosis for her ataxia and tremors. Patient did have a negative MRI at [facility] proximally [address] scan of the brain which was unremarkable 2 years prior as well. Vital signs were normal. Neurologic examination did reveal good wdrxmd-ni-zpkq-to-finger and heel to cheng but patient does have an ataxic gait, not able to walk in a straight line, positive Romberg's with tipping to the right. She does admit to suicidal ideation but does not have a plan. CBC, CMP, ethanol level, CRP, ESR, TSH with reflex T4, quantitative beta-hCG, drug screen urine, ethanol level, urinalysis, COVID-19 Following evaluation was ordered: Differential diagnosis: Suicidal ideation-depression, anxiety, social stressors, Ataxia-mass effect, normal pressure hydrocephalus, stroke, thyroid disease, takes this syndromes 17:22 CT scan of the brain did not reveal any acute abnormality to explain the patient's ataxia, there was no evidence for normal pressure hydrocephalus. My interpretation patient's laboratory evaluation is as follows: Normocytic anemia with an H&H of 11.8 and 33.9. ESR and CRP were normal. TSH was normal. CMP was unremarkable. test was negative. Urine tox screen was negative. Ethanol was below detectable limits. COVID-19 was negative. Patient is medically cleared for evaluation of suicidal ideation and insomnia. 18:46 Patient was seen by the care team and the patient denied being suicidal, she states she just made the statement out of frustration Patient was given outpatient referrals for therapy. I will increase the patient's clonazepam to 1 mg at night see if this helps with her insomnia and I did advise her to continue trying to 100 mg of trazodone She will need to follow-up with Dr. Neumann for further evaluation of her ataxic Admission/Observation Consideration of admission/observation: Escalation of care including admission/observation considered Lab Data MDM Lab Attestation statement: I reviewed the patient's lab results. 05/06/23 13:58 05/06/23 13:58 Labs: Lab Results 05/06/23 05/06/23 Range/Units 13:55 13:58 WBC 6.6 (4.8-10.8) X10*3/uL RBC 3.83 L (4.20-5.50) X10*6/uL Hgb 11.8 L (12.0-16.0) g/dl Hct 33.9 L (37.0-47.0) % MCV 88.5 (80.0-98.0) fL MCH 30.8 (27.0-33.0) pg MCHC 34.8 (31.0-35.0) g/dl RDW 12.1 (11.0-16.0) % Plt Count 314 (160-400) X10*3/uL MPV 8.7 L (9.4-12.3) fL Immature Gran % (Auto) 0.3 (0.0-0.4) % Neut % (Auto) 56.6 (45-73) % Lymph % (Auto) 36.6 (20-40) % Charles % (Auto) 5.4 (2-11) % Eos % (Auto) 0.6 (0-4) % Baso % (Auto) 0.5 (0-2) % Lymph # (Auto) 2.4 (1.2-4.9) X10*3/uL Charles # (Auto) 0.4 (0.1-1.2) X10*3/uL Eos # (Auto) 0.0 (0.0-0.4) X10*3/uL Baso # (Auto) 0.0 (0.0-0.2) X10*3/uL Abs Immat Gran (auto) 0.02 (0.00-0.03) X10*3/uL Absolute Neuts (auto) 3.7 (2.0-8.3) x10*3/uL Absolute Nucleated RBC 0.000 (0.0-0.012) X10*3/uL Nucleated RBC % (auto) 0.0 (0.0-0.2) /100WBC ESR 14 (0-20) MM/HR Sodium 138 (135-145) mmol/L Potassium 3.9 (3.3-5.1) mmol/L Chloride 103 (96-108) mmol/L Carbon Dioxide 28 (22-29) mmol/L Anion Gap 11 L (12-20) BUN 10 (9-16) mg/dL Creatinine 0.71 (0.5-1.4) mg/dL Estim Creat Clear Calc 110.0 Estimated GFR > 60 Random Glucose 84 (60-115) mg/dL Calcium 8.8 D (8.4-10.2) mg/dL Total Bilirubin 0.3 (0.0-1.0) mg/dL AST 16 (5-31) U/L ALT 10 (0-31) U/L Alkaline Phosphatase 42 (39-117) U/L C-Reactive Protein 0.22 (< or = 0.50) mg/dL Total Protein 7.1 (6.5-8.0) g/dL Albumin 3.9 (3.5-5.0) g/dL TSH 0.88 (0.32-4.0) uIU/mL Beta HCG, Quant < 2 mIU/mL Urine Color Yellow Urine Appearance Clear Urine pH 7.0 (5.0-9.0) Ur Specific [place] >= 1.030 H (1.005-1.025) Urine Protein Negative (Neg-Trace) mg/dL Urine Glucose (UA) Negative (Negative) mg/dL Urine Ketones Negative (Negative) mg/dL Urine Blood Small (1+) H (Negative) Urine Nitrite Negative (Negative) Ur Leukocyte Esterase Negative (Negative) Urine RBC 3-5 H (0-2) /HPF Urine WBC 0-5 (0-5) /HPF Ur Squamous Epith Cells 6-10 (0-2) /HPF Urine Bacteria Trace (None Seen) Hyaline Casts 0-2 (0-2) /LPF Urine Test NEGATIVE (NEGATIVE) Urine Opiates Screen Not Detected (Not Detect) Urine Fentanyl Screen Not Detected (Not Detect) Ur Barbiturates Screen Not Detected (Not Detect) Ur Phencyclidine Scrn Not Detected (Not Detect) Ur Amphetamines Screen Not Detected (Not Detect) U Benzodiazepines Scrn Not Detected (Not Detect) Urine Cocaine Screen Not Detected (Not Detect) U Marijuana (THC) Screen Not Detected (Not Detect) Ethyl Alcohol < 10 mg/dL COVID-19 ([facility]ON) Negative (Negative) COVID-19 Clin Com See Note Radiology Impression Discussion of test interpretation with radiology: I have reviewed the radiologist's reading. Radiologist Impression: EXAMINATION: CT HEAD WITHOUT CONTRAST CLINICAL INFORMATION: Ataxia, incontinence COMPARISON: CT head July 06, 2021 FINDINGS: There is no evidence of acute intracranial hemorrhage or territorial infarction. No abnormal mass-effect or midline shift is seen. De Jesus to white matter differentiation is well preserved. No extra-axial fluid collections are identified. The ventricles are normal in size. There is no abnormal attenuation within the brain parenchyma. There is no osseous abnormality. The mastoid air cells and visualized portions of the paranasal sinuses are well-aerated. IMPRESSION: No acute intracranial pathology. Dictated By: Benji Day MD Discharge Plan Discharge Clinical Impression: Suicidal ideation, Insomnia, Ataxic gait Patient Disposition: Home, Self-Care Additional Instructions: Continue taking medications as prescribed by your providers Take your clonazepam 0.5 mg twice a day as needed for anxiety and I am prescribing clonazepam 1 mg at night as needed for insomnia. Continue to take your trazodone 200 mg at night as well. Continue taking your other medications as prescribed. Follow the care team recommendations to get counseling as an outpatient. Follow-up with your doctor in 2 days. Please return to the emergency department if your symptoms get worse or if you develop any symptoms that are concerning to you. Prescriptions: New clonazepam 1 mg tablet 1 mg PO BEDTIME PRN (Reason: insomnia) Qty: 14 0RF Rx Instructions: administer 30 minutes before bedtime No Action paroxetine HCl 20 mg tablet 1 tab PO QAM zolpidem 10 mg tablet 1 tab PO BEDTIME PRN (Reason: Sleep) clonazepam 0.5 mg tablet 1 tab PO BID oxybutynin chloride 10 mg tablet extended release 24hr 10 mg PO DAILY montelukast 10 mg tablet 10 mg PO BEDTIME citalopram 40 mg tablet 40 mg PO DAILY cetirizine 10 mg tablet 10 mg PO DAILY fluticasone propionate 50 mcg/actuation spray,suspension intranasal ergocalciferol (vitamin D2) 1,250 mcg (50,000 unit) capsule 1,250 mcg PO QWEEK Interventions: [place]-Suicide Risk Severity Scale Last Done: 05/06/23 15:32
[2023-05-06 14:05] LABS: MANUAL DIFF FLAG NO
[2023-05-06 14:07] LABS: Basophils Percent Auto 0.5 % (0-2); Eosinophils Percent Auto 0.6 % (0-4); Hematocrit 33.9 % (37.0-47.0); Hemoglobin 11.8 g/dl (12.0-16.0); Imm Gran Abs Auto 0.02 X10*3/uL (0.00-0.03); Imm Gran Pct Auto 0.3 % (0.0-0.4); Lymphocytes Absolute Auto 2.4 X10*3/uL (1.2-4.9); Lymphocytes Percent Auto 36.6 % (20-40); Mean Corpuscular HGB Conc 34.8 g/dl (31.0-35.0); Mean Corpuscular Hemoglobin 30.8 pg (27.0-33.0); Mean Corpuscular Volume 88.5 fL (80.0-98.0); Mean Platelet Volume 8.7 fL (9.4-12.3); Monocytes Absolute Auto 0.4 X10*3/uL (0.1-1.2); Monocytes Percent Auto 5.4 % (2-11); Neutrophils Absolute Auto 3.7 x10*3/uL (2.0-8.3); Neutrophils Percent Auto 56.6 % (45-73); Platelet Count 314 X10*3/uL (160-400); Red Blood Count 3.83 X10*6/uL (4.20-5.50); Red Cell Distribution Width 12.1 % (11.0-16.0); White Blood Count 6.6 X10*3/uL (4.8-10.8)
[2023-05-06 14:11] LABS: Appearance Urine Clear; Color Urine Yellow; Glucose Urine UA Negative (Negative); Leukocyte Esterase Urine Negative (Negative); Nitrite Urine Negative (Negative); Specific Gravity - Urine >= 1.030 (1.005-1.025); UMIC TRIGGER UACC YES; Urine Blood Small (1+) (Negative); Urine Ketones Negative (Negative); Urine Protein Negative (Neg-Trace)
[2023-05-06 14:12] LABS: UPreg QC Valid YES; Urine Pregnancy NEGATIVE (NEGATIVE)
[2023-05-06 14:14] LABS: Amphetamine Screen Urine Not Detected (Not Detect); Barbiturates, Urine Not Detected (Not Detect); Benzodiazepines Screen Urine Not Detected (Not Detect); Cannabinoid Screen Urine Not Detected (Not Detect); Cocaine Screen Urine Not Detected (Not Detect); Fentanyl, urine Not Detected (Not Detect); Opiate Screen Urine Not Detected (Not Detect); Phencyclidine Screen Urine Not Detected (Not Detect)
[2023-05-06 14:24] LABS: Bacteria Urine Trace (None Seen); Hyaline Casts Urine 0-2 /LPF (0-2); WBC Urine 0-5 /HPF (0-5)
[2023-05-06 14:25] LABS: Alanine Aminotransferase 10 U/L (0-31); Albumin Level 3.9 g/dL (3.5-5.0); Alkaline Phosphatase 42 U/L (39-117); Anion Gap 11 (12-20); Aspartate Amino Transferase 16 U/L (5-31); Bilirubin Total 0.3 mg/dL (0.0-1.0); Blood Urea Nitrogen 10 mg/dL (9-16); Calcium 8.8 mg/dL (8.4-10.2); Carbon Dioxide 28 mmol/L (22-29); Chloride 103 mmol/L (96-108); Estimated Glomerular Filt Rate > 60; Glucose Random 84 mg/dL (60-115); Potassium 3.9 mmol/L (3.3-5.1); Sodium 138 mmol/L (135-145); Total Protein 7.1 g/dL (6.5-8.0)
[2023-05-06 14:29] LABS: COVID-19 Test Negative (Negative); IDNOW Serial# 08D9AD1C
[2023-05-06 14:45] LABS: Ethanol < 10 mg/dL
[2023-05-06 15:02] LABS: C Reactive Protein 0.22 mg/dL (< or = 0.50)
[2023-05-06 15:25] LABS: HCG Quantitative < 2 mIU/mL; TSH reflex Free T4 0.88 uIU/mL (0.32-4.0)
[2023-05-06 15:34] VITALS: BP 114/61; PULSE 112; RESP 16; TEMP 36.8; O2SAT 95
--- NOTE | 2023-05-06 15:36 | PC.NURSE ---
Patient admitted with SI yesterday r/t inability to sleep x 2 weeks. No SI endorsed at this time. Patient's belongings secured in locker, resting quietly in bed at this time. Family member at bedside.
[2023-05-06 15:52] LABS: Erythrocyte Sedimentation Rate 14 MM/HR (0-20)
[2023-05-06] MEDS: LORazepam 1 MG TABLET PO (17:37)
--- NOTE | 2023-05-06 17:42 | PC.NURSE ---
pt medicated per EULA pt sig other at bedside
== END 2023-05-06 19:07 | disposition home or self-care (01) ==
PROVIDERS: Emergency Provider Emergency Medicine Emergency Medical Services; PCP Internal Medicine
DX: G47.00 Insomnia, unspecified (principal); R45.851 Suicidal ideations; R27.0 Ataxia, unspecified; Z11.52 Encounter for screening for COVID-19; Z72.89 Other problems related to lifestyle; Z63.79 Other stressful life events affecting family and household; Z79.899 Other long term (current) drug therapy
CPT/HCPCS: 70450; 80053; 80307; 81001; 81025; 84443; 84702; 85025; 85652; 86140; 87635; 99284; 99285; S9485

== ENCOUNTER 2023-07-15 11:04 | Emergency (ER) | payer OTHER, SELFPAY ==
--- NOTE | ~2023-07-15 | CT_ITS ---
EXAMINATION: CT HEAD WITHOUT CONTRAST CLINICAL INFORMATION: Tremors. COMPARISON: None available. TECHNIQUE: Contiguous axial imaging was performed from the skull base to vertex without intravenous administration of contrast. This CT examination was performed using dose optimization techniques as appropriate, variously including the following: *Automated exposure control *Adjustment of mA and/or kV according to patient size (this includes techniques or standardized protocols for targeted exams where dose is matched to indication/reason for exam; i.e. extremities or head) *Use of iterative reconstruction technique DLP: 631 mGy-cm FINDINGS: There is no acute intracranial hemorrhage. There is no evidence of acute/subacute cerebral or cerebellar infarction. There is no midline shift or mass effect. There is no extra-axial fluid collection. The ventricles are normal in size. The orbits are symmetric and within normal limits. The calvarium is intact. The mastoid air cells are clear. Visualized paranasal sinuses are well aerated. The nasal septum is deviated towards the left side. CT/CT head/brain wo IV con IMPRESSION: No acute intracranial pathology.
[2023-07-15 11:29] VITALS: BP 146/84; PULSE 78; RESP 18; TEMP 36.1; O2SAT 100; BMI 23.7
--- NOTE | 2023-07-15 11:30 | ED_ITS ---
HPI - General Adult General Chief complaint: General Medical Stated complaint: feels like seizure coming Time Seen by Provider: 07/15/23 17:29 Source: patient Mode of arrival: ambulatory Limitations: no limitations History of Present Illness HPI narrative: 43-year-old female history of depression, IBS, peptic ulcer disease cuased by H. Pylori presents to the ED for episodes of tremors, visual disturbance described as more tired and wanting to stay in bed and not wanting to open her eye ( patient denies blurry vision/loss vision/black curtain), fatigue, and word finding problemgs for the past 4 days. Patient states sleeping 18 hours per day. Patient states these symptoms has been occurring since 2012 and have seen many neurologist and they have not been able to give her diagnosis. Patient states having multiple, MRIs, and EEGs that all came normal. Patient states lastly she is seeing Dr. Scott who has been her symptoms for the past 2 years and is now in a process of getting a new neurologist. Patient presently asymptomatic. Once again patient states having these symptoms off and on for the past 4 years where she will have moments of visual disturbance ( fatigue), tremors, fatigue, and dizziness and she will be so fatigued she will sleep 18 hours. Once again has been occurring since 2012. Patient denies any history of drug abuse. Patient denies any loss of vision, facial droop, any paralysis of extremities. Patient denies any chest pain or shortness of breath Related Data Home Medications ?Medication ?Instructions ?Recorded ?Confirmed cetirizine 10 mg tablet 10 mg PO DAILY 01/28/20 09/28/21 citalopram 40 mg tablet 40 mg PO DAILY 01/28/20 09/28/21 fluticasone propionate 50 intranasal 01/28/20 07/19/20 mcg/actuation nasal spray,suspension montelukast 10 mg tablet 10 mg PO BEDTIME 01/28/20 09/28/21 oxybutynin chloride 10 mg 10 mg PO DAILY 01/28/20 09/28/21 tablet,extended release 24 hr ergocalciferol (vitamin D2) 1,250 1,250 mcg PO QWEEK 03/13/21 09/28/21 mcg (50,000 unit) capsule clonazepam 0.5 mg tablet 1 tab PO BID 10/01/21 10/01/21 paroxetine HCl 20 mg tablet 1 tab PO QAM 10/01/21 10/01/21 zolpidem 10 mg tablet 1 tab PO BEDTIME PRN Sleep 10/01/21 10/01/21 Previous Rx's ?Medication ?Instructions ?Recorded clonazepam 1 mg tablet 1 mg PO BEDTIME PRN insomnia #14 05/06/23 tabs Allergies Allergy/AdvReac Type Severity Reaction Status Date / Time adhesive tape AdvReac Mild Rash Verified 07/15/23 11:33 Review of Systems 2 Review of Systems: fatigue, visual distrubance, Word finding, tremors symptoms off and on for the past 10 years Yes all other systems are reviewed and are negative [facility] Past Medical History Medical History Insomnia Chronic fatigue syndrome Anxiety LESLEY II (cervical intraepithelial neoplasia II) Abdominal wall asymmetry Urinary incontinence Vitamin D deficiency Depression Surgical History Hx of prior ablation treatment Hx of tubal ligation Family History Family History Mother Diabetes mellitus Sister Diabetes mellitus Maternal Grandmother Diabetes mellitus Father HTN (hypertension) Colon polyp Schizophrenia Paternal Aunt Breast cancer Maternal Aunt Breast cancer Paternal Grandfather Colon cancer Maternal Aunt Stomach cancer Social History Social History Household Members: Significant Other and Children Housing: House Alcohol intake: current Alcohol intake frequency: holidays/special occasions only Patient Tobacco Use Status: Never used Tobacco Smoked in Last 30 Days: No Use of substances other than those prescribed or required for medical reasons: No Advance Directives: No Advance Directives Information Provided: Yes Do you have a plan to hurt others: No Plan Current occupational status: employed 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 Sexual orientation: Straight/Heterosexual Gender identity: Female Physical Exam ED Vital Signs: Vital Signs - 24 hr 07/15/23 11:29 07/15/23 16:58 07/15/23 20:03 Temperature 96.9 F 97.6 F Pulse Rate 78 69 64 Respiratory Rate 18 16 Blood Pressure 146/84 H 121/76 120/71 Pulse Oximetry 100 97 96 Oxygen Delivery Method Room Air Room Air Room Air BMI result Body Mass Index 23.7 Const General: cooperative, healthy appearing, comfortable, no acute distress, well developed, alert, awake and Physically active Orientation/consciousness: oriented to person, oriented to place, oriented to time and patient oriented x3 HENMT Head: Yes normal to inspection, Yes No palpable skull fracture present, Yes normocephalic, Yes atraumatic and No abrasion Eyes Other: Negative nystagmus. General: appearance normal, both eyes and all related structures Neck Neck: Yes normal visual inspection, Yes full ROM, Yes no lymphadenopathy, Yes no meningeal signs, Yes trachea midline, Yes supple, No anterior neck swelling and No tender Chest Chest palpation & inspection: normal inspection of the chest and normal palpation of entire chest wall Resp Effort & Inspection: normal respiratory effort and able to speak in complete sentences Auscultation: clear to auscultation bilaterally Cardio Jugular venous distension: no JVD Heart sounds: S1 normal heart sound present and S2 normal heart sound present GI Inspection: Yes normal to inspection Palpation (GI): Soft to palpation, not firm, nontender, no guarding and not rigid General: No CVA tenderness and Yes no CVA tenderness Back/Spine/Pelvis Back: no CVA tenderness, No CVA tenderness and No back tenderness Skin General skin exam: no rashes or lesions noted, elasticity normal and turgor normal Neuro Other: Negative facial droop. Negative slurred speech. Negative paralysis of abuse. Speech is normal. Negative pronator drift. All extremities equal strength 5+. [id number] rapid hand movement intact. Negative Romberg. NIH score is 0 General: oriented to person, oriented to place, oriented to time, patient oriented x3, gait normal, tone normal, moves all extremities, Normal light touch and pain sensation, no meningeal signs, no focal motor deficits, CN's II-XI intact bilaterally and normal sensation to monofilament Extrem General: Yes normal to inspection, Yes full ROM and Yes capillary refill normal Psych Appearance: grossly normal, well kempt and not disheveled Course Course Course Narrative: This is a rapid medical exam completed by Floresita PRODUCTION MACHINE SHOP SUPERVISOR: Additional HPI, ROS, PE not included below will be deferred to primary provider. Feels like she has an 'aura' with vision changes with difficulty differentiating colors, work finding, slurred speech per pt for the last few days. Similar symptoms every 'couple of months' but has been happening more frequently. Typically sleeps off the symptoms but they have not resolved. No new medications. Followed by neurology. Denies head trauma. On clonazepam for tremors Negative CT head on 05/06/23 Medical Decision Making Medical Decision Making [facility] Narrative: 43-year-old female with chronic symptoms of tremors, fatigue, visual disturbances ( describes more as not wanting to open her eyes due to fatigue), wording problems for the past 10 years. Patient has been seen by multiple neurologists as she states has had EEGs that were normal CT scan and head CT scan and MRIs. Patient is being followed by our neurologist. Patient presently asymptomatic. Patient states she knows she can not be fixed for but wants to maker sure there is no any life-threatening issues. Patient out the window for any stroke intervention with tPA or embolectomy. Was just to try head CT scan. No indication for MRI. Initial labs normal. Mother head CT scan. We will do EKG to check for any arrhythmias or QT prolongation. 8:11pm: Patient is CT scan came back normal. Neuro exam intact. NIH score is 0. EKG STEMI. No QT prolongation. Troponin negative. Labs are normal .electrolytes are normal. Patient worrisome signs and informed to follow-up with the primary care provider and neurologist. Not suspecting carotid dissection,Vertebral dissection, stroke, aneurysm, or large vessel occlusion. Not suspecting meningitis. Not suspecting encephalitis. WOrrisome signs explained to patient Differential Diagnosis Differential Diagnoses: The differential diagnosis associated with the presentation includes (Migraine, chronic symptom exacerbation, stroke, myocardial infarction, electrolyte deficiency) Admission/Observation Consideration of admission/observation: Escalation of care including admission/observation considered Lab Data [facility] Lab Attestation statement: I reviewed the patient's lab results. 07/15/23 11:55 07/15/23 11:55 Labs: Lab Results 07/15/23 07/15/23 07/15/23 Range/Units 11:55 11:56 18:54 WBC 8.0 (4.8-10.8) X10*3/uL RBC 4.34 (4.20-5.50) X10*6/uL Hgb 13.4 (12.0-16.0) g/dl Hct 38.3 (37.0-47.0) % MCV 88.2 (80.0-98.0) fL MCH 30.9 (27.0-33.0) pg MCHC 35.0 (31.0-35.0) g/dl RDW 11.5 (11.0-16.0) % Plt Count 325 (160-400) X10*3/uL MPV 9.1 L (9.4-12.3) fL Immature Gran % (Auto) 0.4 (0.0-0.4) % Neut % (Auto) 60.9 (45-73) % Lymph % (Auto) 32.5 (20-40) % [place] % (Auto) 5.6 (2-11) % Eos % (Auto) 0.2 (0-4) % Baso % (Auto) 0.4 (0-2) % Lymph # (Auto) 2.6 (1.2-4.9) X10*3/uL [place] # (Auto) 0.5 (0.1-1.2) X10*3/uL Eos # (Auto) 0.0 (0.0-0.4) X10*3/uL Baso # (Auto) 0.0 (0.0-0.2) X10*3/uL Abs Immat Gran (auto) 0.03 (0.00-0.03) X10*3/uL Absolute Neuts (auto) 4.9 (2.0-8.3) x10*3/uL Absolute Nucleated RBC 0.000 (0.0-0.012) X10*3/uL Nucleated RBC % (auto) 0.0 (0.0-0.2) /100WBC Sodium 136 (135-145) mmol/L Potassium 4.0 (3.3-5.1) mmol/L Chloride 102 (96-108) mmol/L Carbon Dioxide 26 (22-29) mmol/L Anion Gap 12 (12-20) BUN 11 (9-16) mg/dL Creatinine 0.66 (0.5-1.4) mg/dL Estim Creat Clear Calc 117.2 Estimated GFR > 60 Random Glucose 88 (60-115) mg/dL Calcium 9.4 D (8.4-10.2) mg/dL Magnesium 2.0 (1.6-2.6) mg/dL Total Bilirubin 0.5 (0.0-1.0) mg/dL AST 17 (5-31) U/L ALT 12 (0-31) U/L Alkaline Phosphatase 47 (39-117) U/L Troponin I High Sens < 2.7 (<3.5-17.0) ng/L Total Protein 8.0 (6.5-8.0) g/dL Albumin 4.4 (3.5-5.0) g/dL Urine Color Yellow Urine Appearance Clear Urine pH 6.5 (5.0-9.0) Ur Specific [place] 1.015 (1.005-1.025) Urine Protein Negative (Neg-Trace) mg/dL Urine Glucose (UA) Negative (Negative) mg/dL Urine Ketones Negative (Negative) mg/dL Urine Blood Negative (Negative) Urine Nitrite Negative (Negative) Ur Leukocyte Esterase Negative (Negative) Urine RBC 0-2 (0-2) /HPF Urine WBC 0-5 (0-5) /HPF Ur Squamous Epith Cells 3-5 (0-2) /HPF Urine Bacteria None Seen (None Seen) Hyaline Casts 0-2 (0-2) /LPF Urine Test NEGATIVE (NEGATIVE) Urine Opiates Screen Not Detected (Not Detect) Ur Buprenorphine Scrn Not Detected (Not Detect) ng/mL Ur Oxycodone Screen Not Detected (Not Detect) ng/mL Urine Methadone Screen Not Detected (Not Detect) ng/mL Urine Fentanyl Screen Not Detected (Not Detect) Ur Barbiturates Screen Not Detected (Not Detect) Ur Phencyclidine Scrn Not Detected (Not Detect) Ur Amphetamines Screen Not Detected (Not Detect) U Benzodiazepines Scrn Not Detected (Not Detect) Urine Cocaine Screen Not Detected (Not Detect) U Marijuana (THC) Screen Not Detected (Not Detect) Independent Interpretation I performed an independent interpretation of an: EKG and CT Scan Interpretation: Dylan Richardson [id number] CT Scan Report Signed Patient: Genie Lancaster MR#: [id number] : 1980 Acct:[id number] Age/Sex: 43 / F ADM Date: 07/15/23 Loc: HO.ED Attending Dr: Ordering Physician: Quan Garland Date of Service: 07/15/23 Procedure(s): CT head/brain wo IV con Accession Number(s): [id number] cc: Quan Garland; Daniel Freeman MD~ EXAMINATION: CT HEAD WITHOUT CONTRAST CLINICAL INFORMATION: Tremors. COMPARISON: None available. TECHNIQUE: Contiguous axial imaging was performed from the skull base to vertex without intravenous administration of contrast. This CT examination was performed using dose optimization techniques as appropriate, variously including the following: *Automated exposure control *Adjustment of mA and/or kV according to patient size (this includes techniques or standardized protocols for targeted exams where dose is matched to indication/reason for exam; i.e. extremities or head) *Use of iterative reconstruction technique DLP: 631 mGy-cm FINDINGS: There is no acute intracranial hemorrhage. There is no evidence of acute/subacute cerebral or cerebellar infarction. There is no midline shift or mass effect. There is no extra-axial fluid collection. The ventricles are normal in size. The orbits are symmetric and within normal limits. The calvarium is intact. The mastoid air cells are clear. Visualized paranasal sinuses are well aerated. The nasal septum is deviated towards the left side. CT/CT head/brain wo IV con IMPRESSION: No acute intracranial pathology. Dictated By: Jerry Dubois Jr, DO Signed By: <Electronically signed by Jerry Dubois Jr, in OV> 07/15/231828 DD/ 23 TD/TT: Evaluation Manager: DANNY Radiology Impression Discussion of test interpretation with radiology: I have reviewed the radiologist's reading. Independent Historian Clinical information obtained from an independent historian. History obtained from or confirmed by: Other (Patient) External Record Review External record reviewed: Other (Proir visits) Discharge Plan Discharge Clinical Impression: Fatigue, Occasional tremors Patient Disposition: Home, Self-Care Instructions: Fatigue (ED), Tremors (ED) Additional Instructions: You're head CT scan and blood work came back normal. Your EKG came back negative for signs of a heart attack. Recommend follow-up with your neurologist and PCP. Return to the ED immediately for any facial droop, slurred speech, nausea, vomiting, paralysis of extremities, headache, loss of vision, abdominal pain, tremors, chest pain, shortness of breath, or any other concerning symptoms Prescriptions: No Action paroxetine HCl 20 mg tablet 1 tab PO QAM zolpidem 10 mg tablet 1 tab PO BEDTIME PRN (Reason: Sleep) clonazepam 0.5 mg tablet 1 tab PO BID clonazepam 1 mg tablet 1 mg PO BEDTIME PRN (Reason: insomnia) Qty: 14 0RF Rx Instructions: administer 30 minutes before bedtime oxybutynin chloride 10 mg tablet extended release 24hr 10 mg PO DAILY montelukast 10 mg tablet 10 mg PO BEDTIME citalopram 40 mg tablet 40 mg PO DAILY cetirizine 10 mg tablet 10 mg PO DAILY fluticasone propionate 50 mcg/actuation spray,suspension intranasal ergocalciferol (vitamin D2) 1,250 mcg (50,000 unit) capsule 1,250 mcg PO QWEEK Interventions: ED Discharge Assessment Last Done: 07/15/23 20:29 Discharge Date/Time: 07/15/23 20:35 Print Language: Hebrew
[2023-07-15 12:01] LABS: MANUAL DIFF FLAG NO
[2023-07-15 12:02] LABS: Basophils Percent Auto 0.4 % (0-2); Eosinophils Percent Auto 0.2 % (0-4); Hematocrit 38.3 % (37.0-47.0); Hemoglobin 13.4 g/dl (12.0-16.0); Imm Gran Abs Auto 0.03 X10*3/uL (0.00-0.03); Imm Gran Pct Auto 0.4 % (0.0-0.4); Lymphocytes Absolute Auto 2.6 X10*3/uL (1.2-4.9); Lymphocytes Percent Auto 32.5 % (20-40); Mean Corpuscular Hemoglobin 30.9 pg (27.0-33.0); Mean Corpuscular Volume 88.2 fL (80.0-98.0); Mean Platelet Volume 9.1 fL (9.4-12.3); Monocytes Absolute Auto 0.5 X10*3/uL (0.1-1.2); Monocytes Percent Auto 5.6 % (2-11); Neutrophils Absolute Auto 4.9 x10*3/uL (2.0-8.3); Neutrophils Percent Auto 60.9 % (45-73); Platelet Count 325 X10*3/uL (160-400); Red Blood Count 4.34 X10*6/uL (4.20-5.50); Red Cell Distribution Width 11.5 % (11.0-16.0)
[2023-07-15 12:05] LABS: UPreg QC Valid YES; Urine Pregnancy NEGATIVE (NEGATIVE)
[2023-07-15 12:05] LABS: Appearance Urine Clear; Color Urine Yellow; Glucose Urine UA Negative (Negative); Leukocyte Esterase Urine Negative (Negative); Nitrite Urine Negative (Negative); PH 6.5 (5.0-9.0); Specific Gravity - Urine 1.015 (1.005-1.025); Urine Blood Negative (Negative); Urine Ketones Negative (Negative); Urine Protein Negative (Neg-Trace)
[2023-07-15 12:13] LABS: Amphetamine Screen Urine Not Detected (Not Detect); Barbiturates, Urine Not Detected (Not Detect); Benzodiazepines Screen Urine Not Detected (Not Detect); Buprenorphine Scr Not Detected (Not Detect); Cannabinoid Screen Urine Not Detected (Not Detect); Cocaine Screen Urine Not Detected (Not Detect); Fentanyl, urine Not Detected (Not Detect); Methadone Screen, Urine Not Detected (Not Detect); Opiate Screen Urine Not Detected (Not Detect); Oxycodone Screen Urine Not Detected (Not Detect); Phencyclidine Screen Urine Not Detected (Not Detect)
[2023-07-15 12:20] LABS: Alanine Aminotransferase 12 U/L (0-31); Albumin Level 4.4 g/dL (3.5-5.0); Alkaline Phosphatase 47 U/L (39-117); Anion Gap 12 (12-20); Aspartate Amino Transferase 17 U/L (5-31); Bilirubin Total 0.5 mg/dL (0.0-1.0); Blood Urea Nitrogen 11 mg/dL (9-16); Calcium 9.4 mg/dL (8.4-10.2); Carbon Dioxide 26 mmol/L (22-29); Chloride 102 mmol/L (96-108); Creatinine Clr Calc Pharmacy 117.2; Estimated Glomerular Filt Rate > 60; Glucose Random 88 mg/dL (60-115); Sodium 136 mmol/L (135-145)
[2023-07-15 12:21] LABS: Bacteria Urine None Seen (None Seen); Hyaline Casts Urine 0-2 /LPF (0-2); RBC Urine 0-2 /HPF (0-2); WBC Urine 0-5 /HPF (0-5)
[2023-07-15 16:58] VITALS: BP 121/76; PULSE 69; RESP 16; TEMP 36.4; O2SAT 97
--- NOTE | 2023-07-15 18:21 | ECG_ITS ---
Test Reason : tremors Blood Pressure : / mmHG Vent. Rate : 067 BPM Atrial Rate : 067 BPM P-R Int : 164 ms QRS Dur : 076 ms QT Int : 378 ms P-R-T Axes : 033 -05 014 degrees QTc Int : 399 ms Normal sinus rhythm with sinus arrhythmia Septal infarct , age undetermined - could be related to body habitus and lead placement Abnormal ECG No significant changes when compared with the previous EKG of 06 july 2021 Referred By: Quan Garland Electronically Signed By:NATALIE OLMSTEAD
[2023-07-15 19:24] LABS: Troponin-I High Sensitivity < 2.7 ng/L (<3.5-17.0)
[2023-07-15 20:03] VITALS: BP 120/71; PULSE 64; O2SAT 96
[2023-07-15 20:29] VITALS: BP 119/78; PULSE 63; RESP 20; TEMP 36.7; O2SAT 98
--- NOTE | 2023-07-15 20:34 | PC.NURSE ---
Patient d/c'd by ore charger Rosy, no issues noted.
== END 2023-07-15 20:35 | disposition home or self-care (01) ==
PROVIDERS: Nurse Practitioner Family; Physician Assistant; Emergency Provider Emergency Medicine; PCP Internal Medicine
DX: R25.1 Tremor, unspecified (principal); R53.83 Other fatigue; H53.9 Unspecified visual disturbance
CPT/HCPCS: 36415; 70450; 80053; 80307; 81001; 81025; 83735; 84484; 85025; 93005; 99284

== ENCOUNTER → 2023-07-15 18:21 | Outpatient (BNV) | payer OTHER, SELFPAY | PROVIDERS: Emergency Provider Emergency Medicine; PCP Internal Medicine; Visit Provider Internal Medicine | DX: I49.8 Other specified cardiac arrhythmias (principal) | CPT/HCPCS: 93010 ==

== ENCOUNTER 2023-10-14 12:24 | Outpatient (AMB) | payer OTHER, SELFPAY ==
--- NOTE | 2023-10-14 12:30 | MHC.OFFVIS ---
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 Complaining of irregular menstrual cycles over the last few months Last Pap/HPV was negative in 04/08, the patient is status post LEEP for YFN 2 in 10/05 Last Mammogram was BI-RADS 1 in 07/07 [facility] Medical History Insomnia Chronic fatigue syndrome Anxiety YFN II (cervical intraepithelial neoplasia II) Abdominal wall asymmetry Urinary incontinence Vitamin D deficiency Depression Surgical History Hx of prior ablation treatment Hx of tubal ligation Family History Mother Diabetes mellitus Sister Diabetes mellitus Maternal Grandmother Diabetes mellitus Father HTN (hypertension) Colon polyp Schizophrenia Paternal Aunt Breast cancer Maternal Aunt Breast cancer Paternal Grandfather Colon cancer Maternal Aunt Stomach cancer Social History Household Members: Significant Other and Children Housing: House Alcohol intake: current Alcohol intake frequency: holidays/special occasions only Patient Tobacco Use Status: Never used Tobacco Current occupational status: employed 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 Sexual orientation: Straight/Heterosexual Gender identity: Female Female Reproductive History Menstrual Age of Menarche: 16 Duration of menses: 3-5 days Date of last menstrual period: 10/04/23 control method: permanent sterilization Permanent Sterilization: BTL Total pregnancies: 4 Full term: 4 Number of Living Children: 4 Date of last pap smear: 04/16/22 (neg pap and hpv) History of abnormal pap smear: Yes (07/06 lgsil +hpv 09/05 colpo yfn 1-2 10/05 leep yfn 2) Date of Mammogram: 10/25/22 (Birad 1) Review of Systems Const All systems reviewed & are unremarkable except as noted in HPI and below Card Reports as per HPI Resp Reports as per HPI GI Reports as per HPI and Reports no additional complaints Reports as per HPI Physical Exam Vital Signs: BMI result Body Mass Index 23.8 Const General: cooperative, healthy appearing and comfortable Chest Chest palpation & inspection: normal inspection of the chest and normal palpation of entire chest wall Breast/axilla inspection: normal inspection of the breasts and normal inspection of the axillae Breast/axilla palpation: normal palpation of the breasts, normal palpation of the axillae and no axillary lymphadenopathy Resp Effort & Inspection: normal respiratory effort Auscultation: clear to auscultation bilaterally Percussion: percussion normal Cardio Palpation: normal PMI Rate: regular rate Rhythm: regular rhythm Heart sounds: no murmurs and no rubs Peripheral pulses: Peripheral pulses 2+ throughout GI Inspection: Yes normal to inspection Palpation (GI): Soft to palpation, nontender, no guarding, not rigid and No hepatosplenomegaly present Percussion: Yes normal to percussion Auscultation: normal bowel sounds Rectal Exam - Female: deferred General: Yes bladder normal to palpation External Female Exam: No lesion Speculum Exam - Vagina: normal appearance of the vagina, normal palpation, normal vaginal discharge and not erythematous Speculum Exam - Cervix: normal appearance of the cervix and normal palpation Bimanual exam- vagina & uterus: normal bimanual exam, normal palpation, uterine size normal, bladder normal to palpation, consistency normal and normal palpation Bimanual Exam- Adnexa, other: normal adnexae, no masses and no tenderness Assessment & Plan Assessment & Plan (1) Well woman exam: Code(s): Z01.419 - Encounter for gynecological examination (general) (routine) without abnormal findings Category: Medical Plan: Cotesting done. Next screening Mammogram scheduled soon in few weeks. Counseled the patient about the recommended dietary allowance of 1000 mg of Calcium & 600 IU of vitamin D. The patient was instructed to perform monthly self-breast exams and to schedule an annual exam in a year; All questions answered and the patient verbalized understanding. Instructed the patient to schedule annual exam in a year (2) Abnormal uterine bleeding: Code(s): N93.9 - Abnormal uterine and vaginal bleeding, unspecified Category: Medical Plan: Co testing done, GC and chlamydia taken CBC, TSH, prolactin, HCG, and pelvic ultrasound ordered. Discussed with the patient the different causes of abnormal bleeding including thyroid disorders, uterine and ovarian pathology, endometrial hyperplasia, carcinoma and other potential causes. Discussed with the patient the work up including CBC (to r/o anemia), TSH, prolactin, pelvic Ultrasound, endometrial biopsy to r/o endometrial pathology. All questions answered and the patient verbalized understanding. Instructed the patient to schedule an appointment for an endometrial biopsy in 2 weeks. Orders: Orders TSH reflex Free T4 Today N93.9 - Abnormal uterine and vaginal bleeding, unspecified Complete Blood Count no Diff Today N93.9 - Abnormal uterine and vaginal bleeding, unspecified HCG Quantitative Today N93.9 - Abnormal uterine and vaginal bleeding, unspecified Prolactin Today N93.9 - Abnormal uterine and vaginal bleeding, unspecified US pelvic and transvaginal Today N93.9 - Abnormal uterine and vaginal bleeding, unspecified Coding Level of Care Code Est Pt Prev Care 40-64y(56911) Diagnoses Well woman exam Z01.419 Abnormal uterine bleeding N93.9
[2023-10-14 12:32] VITALS: BP 90/54; BMI 23.8
== END 2023-10-14 13:09 | disposition home or self-care (01) ==
LOC: HO.HWS 12:24
PROVIDERS: PCP Physician Assistant; Visit Provider Obstetrics & Gynecology
DX: Z01.419 Encounter for gynecological examination (general) (routine) without abnormal findings (principal); N93.9 Abnormal uterine and vaginal bleeding, unspecified
CPT/HCPCS: 99396

== ENCOUNTER 2023-10-14 12:24 | Outpatient (REF) | payer OTHER, SELFPAY ==
[2023-10-14 17:06] LABS: CT PCR NOT DETECTED (Not Detect.); NG PCR NOT DETECTED (Not Detect.)
[2023-10-16 09:28] LABS: HPV mRNA E6/E7 Not Detected (Not Detected)
== END 2023-10-14 12:25 | disposition home or self-care (01) ==
LOC: HO.LNP 12:24
PROVIDERS: PCP Physician Assistant; Visit Provider Obstetrics & Gynecology
DX: Z01.419 Encounter for gynecological examination (general) (routine) without abnormal findings (principal); Z11.51 Encounter for screening for human papillomavirus (HPV); N87.1 Moderate cervical dysplasia; N93.9 Abnormal uterine and vaginal bleeding, unspecified
CPT/HCPCS: 87491; 87591; 87624; 88175

== ENCOUNTER 2023-10-22 12:48 | Outpatient (REF) | payer OTHER, SELFPAY ==
--- NOTE | ~2023-10-22 | US_ITS ---
EXAMINATION: US PELVIS COMPLETE CLINICAL INFORMATION: Abnormal uterine and vaginal bleeding; the last menstrual period was on 10/04/2023. COMPARISON: Pelvic ultrasound dated 10/10/2022. TECHNIQUE: Transabdominal and transvaginal imaging were performed. FINDINGS: The uterus is of normal size and echogenicity, measuring 9.0 x 3.6 x 4.7 cm. The uterus is anteverted and anteflexed. A regular, homogeneous endometrium is identified measuring 0.6 cm. No uterine fibroid is presently identified Both ovaries are of normal size and echogenicity. The right ovary measures 3.0 x 1.9 x 2.4 cm for a volume of 7.2 mL. The left ovary measures 2.7 x 0.8 x 1.8 cm for a volume of 5.4 mL. There is no pelvic free fluid. No adnexal mass is seen. US/US pelvic and transvaginal IMPRESSION: Unremarkable pelvic ultrasound. No uterine fibroid is presently identified. Electronically signed by: Sav Souza MD 11/12/2023 03:11 PM EDT
== END 2023-10-22 12:49 | disposition home or self-care (01) ==
LOC: HO.US 12:48
PROVIDERS: PCP Physician Assistant; Visit Provider Obstetrics & Gynecology
DX: N93.9 Abnormal uterine and vaginal bleeding, unspecified (principal)
CPT/HCPCS: 76830; 76856

== ENCOUNTER 2023-11-03 07:19 | Outpatient (REF) | payer OTHER, SELFPAY ==
--- NOTE | ~2023-11-03 | MM_ITS ---
EXAMINATION: MM SCREENING DIGITAL BREAST TOMOSYNTHESIS, BILATERAL CLINICAL INFORMATION: Screening. Asymptomatic. COMPARISON: Mammography: This study is compared with prior exams dating back to 2022. TECHNIQUE: Digital breast tomosynthesis is performed in both the craniocaudal and mediolateral oblique views along with computer-aided detection (CAD). Synthesized 2D images are generated from the tomosynthesis. FINDINGS: The breasts are heterogeneously dense, which may obscure small masses (ACR BI-RADS breast composition Category c). There are no significant masses, abnormal calcifications, or other abnormalities. MM/MM tomosynthesis screening BI IMPRESSION: No mammographic evidence of malignancy. ASSESSMENT: BI-RADS BI-RADS 1 - Negative RECOMMENDATION: Routine annual mammography screening. 1 year F/U This examination should not preclude the clinical evaluation of a suspicious palpable abnormality. This patient's information was entered into a reminder system with a target due date for their next mammogram. Electronically signed by: Sonia Key MD 12/01/2023 09:42 AM EDT
== END 2023-11-03 07:20 | disposition home or self-care (01) ==
LOC: HO.MAMMO 07:19
PROVIDERS: PCP Physician Assistant; Visit Provider Physician Assistant
DX: Z12.31 Encounter for screening mammogram for malignant neoplasm of breast (principal)
CPT/HCPCS: 77063; 77067

== ENCOUNTER → 2023-11-03 07:30 | Outpatient (BNV) | payer OTHER, SELFPAY | PROVIDERS: PCP Physician Assistant; Visit Provider Radiology Diagnostic Radiology | DX: Z12.31 Encounter for screening mammogram for malignant neoplasm of breast (principal) | CPT/HCPCS: 77063; 77067 ==

== ENCOUNTER 2023-11-26 12:39 | Outpatient (REF) | payer OTHER, SELFPAY | END 2023-11-26 12:40 | disposition home or self-care (01) | LOC: HO.LNP 12:39 | PROVIDERS: PCP Physician Assistant; Visit Provider Obstetrics & Gynecology | DX: N93.9 Abnormal uterine and vaginal bleeding, unspecified (principal); Z32.02 Encounter for pregnancy test, result negative | CPT/HCPCS: 58100; 81025; 88305 ==

== ENCOUNTER 2023-11-26 12:39 | Outpatient (AMB) | payer OTHER, SELFPAY ==
--- NOTE | 2023-11-26 12:46 | MHC.OFFVIS ---
Vital Signs 11/26/23 12:49 Height 5 ft 9 in Weight 160 lb 14.999 oz BMI 23.8 Intake Visit Reasons: Ultra sound follow up/? emb Medical Insurance Coding Specialist Required: No Information Interpreted: non-clinical & clinical Licensed Sales Assistant: Licensed Sales Assistant Present (Kristina WARE) Accompanied by: Self / Same As Patient Allergies adhesive tape Adverse Reaction (Mild, Verified 11/26/23 12:49) Rash HPI Comments Details: Presenting for EMB [facility] Medical History Insomnia Chronic fatigue syndrome Anxiety LESLEY II (cervical intraepithelial neoplasia II) Abdominal wall asymmetry Urinary incontinence Vitamin D deficiency Depression Surgical History Hx of prior ablation treatment Hx of tubal ligation Family History Mother Diabetes mellitus Sister Diabetes mellitus Maternal Grandmother Diabetes mellitus Father HTN (hypertension) Colon polyp Schizophrenia Paternal Aunt Breast cancer Maternal Aunt Breast cancer Paternal Grandfather Colon cancer Maternal Aunt Stomach cancer Social History Household Members: Significant Other and Children Housing: House Alcohol intake: current Alcohol intake frequency: holidays/special occasions only Patient Tobacco Use Status: Never used Tobacco Current occupational status: employed 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 Sexual orientation: Straight/Heterosexual Gender identity: Female Female Reproductive History Menstrual Age of Menarche: 16 Review of Systems Const All systems reviewed & are unremarkable except as noted in HPI and below Reports as per HPI and Reports no additional complaints GI Reports no additional complaints Reports no additional complaints Physical Exam Vital Signs: BMI result Body Mass Index 23.8 Office Procedures Endometrial Biopsy Details: The patient was counseled regarding the indication and benefits of endometrial sampling to rule out endometrial pathology including not limited to endometrial hyperplasia or endometrial cancer and others; The alternatives (Either do nothing vs. hysteroscopy D&C) & the risks were discussed with the patient including but not limited: pain, uterine perforation, bleeding, infection, possible injury to bladder, bowel, ureter, possible need for blood transfusion with all its possible risks. The patient verbalized understanding all questions answered and signed consent. Urine test done in the office was negative The patient was placed into the dorsal lithotomy position; a speculum was inserted in the vagina. Using aseptic technique for the procedure, the cervix was cleansed with Betadine. The anterior lip of the cervix was grasped with a single tooth tenaculum. The uterus was sounded to 7 cm with a 4 mm Pipelle was used. Tissues samples were obtained and placed in formalin, in a patient labeled container and sent to the pathology department. At the end of the procedure, there was minimal bleeding noted The patient tolerated the procedure well and was discharged in good condition with the following instructions: Nothing in the vagina until the bleeding stops. No sex until the bleeding stops, to call if any of the following occurs: fever (>100.4), flu-like symptoms, abdominal pain, heavy bleeding, four smelling vaginal discharge. The patient was instructed to schedule a Follow up appointment in 2 weeks to discuss pathology results of the biopsy and treatment options. This note was generated with a voice recognition program. Some errors may have been overlooked during the review of this note. Sometimes these errors may affect the content or meaning of a given sentence. [id number] Biopsy Results AMB Test Urine AMB Test Urine Negative Last Edit by Kristina Maurice CMA on 11/26/23 12:54 Assessment & Plan Assessment & Plan (1) Abnormal uterine bleeding: Code(s): N93.9 - Abnormal uterine and vaginal bleeding, unspecified Category: Medical Plan: EMB done, see procedure note Orders: Orders AMB HCG Urine Test Today Z32.02 - Encounter for test, result negative AMB Endometrial Biopsy Today N93.9 - Abnormal uterine and vaginal bleeding, unspecified Coding Level of Care Code Procedure Only Diagnoses Abnormal uterine bleeding N93.9 CPT Codes Endometrial Biopsy - CPT: 77047-Avtxolswkcm Biopsy ([id number])
[2023-11-26 12:49] VITALS: BMI 23.8
== END 2023-11-26 13:02 | disposition home or self-care (01) ==
PROVIDERS: PCP Physician Assistant; Visit Provider Obstetrics & Gynecology
DX: N93.9 Abnormal uterine and vaginal bleeding, unspecified (principal); Z32.02 Encounter for pregnancy test, result negative
CPT/HCPCS: 58100

== ENCOUNTER 2024-01-28 13:12 | Outpatient (AMB) | payer OTHER, SELFPAY ==
--- NOTE | 2024-01-28 13:13 | MHC.OFFVIS ---
Intake Visit Reasons: TV emb results Allergies adhesive tape Adverse Reaction (Mild, Verified 11/26/23 12:49) Rash HPI Comments Details: The patient schedule a telehealth visit for follow-up to discuss the results of her abnormal uterine bleeding workup and options of treatment. The following workup was done.: H&H= 13.4/38.3 TSH, hCG, GC and chlamydia were negative. Endometrial biopsy pathology showed the following: Benign proliferative endometrium with glandular and stromal breakdown; no atypia or carcinoma Co testing was done was negative. Mammogram was BI-RADS 1 Pelvic ultrasound showed the following: IMPRESSION: Unremarkable pelvic ultrasound. No uterine fibroid is presently identified [facility] Medical History Insomnia Chronic fatigue syndrome Anxiety LESLEY II (cervical intraepithelial neoplasia II) Abdominal wall asymmetry Urinary incontinence Vitamin D deficiency Depression Surgical History Hx of prior ablation treatment Hx of tubal ligation Family History Mother Diabetes mellitus Sister Diabetes mellitus Maternal Grandmother Diabetes mellitus Father HTN (hypertension) Colon polyp Schizophrenia Paternal Aunt Breast cancer Maternal Aunt Breast cancer Paternal Grandfather Colon cancer Maternal Aunt Stomach cancer Social History Household Members: Significant Other and Children Housing: House Alcohol intake: current Alcohol intake frequency: holidays/special occasions only Patient Tobacco Use Status: Never used Tobacco Current occupational status: employed 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 Sexual orientation: Straight/Heterosexual Gender identity: Female Female Reproductive History Menstrual Age of Menarche: 16 Review of Systems Const All systems reviewed & are unremarkable except as noted in HPI and below Reports as per HPI and Reports no additional complaints GI Reports no additional complaints Reports no additional complaints Telehealth Telehealth Telehealth Platform: Telephone Location of provider rendering services: practice address Location of patient: address on file Patient Identification confirmed using: Name, : Yes Telehealth method: video Patient verbally consented to treatment: Yes Patient verbally consented to billing insurance company: Yes Patient informed of any privacy concerns related to visit: Yes Assessment & Plan Assessment & Plan (1) Abnormal uterine bleeding: Comment: History of ablation Code(s): N93.9 - Abnormal uterine and vaginal bleeding, unspecified Category: Medical Plan: Discussed with the patient the results of the work up done and options of treatment including but not limited to BCP's, cyclic Progesterone, Mirena IUD, endometrial ablation and hysterectomy. All pros, cons, risks and benefits of each option were discussed with the patient and the patient decided to go ahead with cyclic Provera, so a more detailed discussion re: Progesterone treatment including mechanism of action, benefits (regular menses, endometrial protection form unopposed estrogen and reduction in the risk of endometrial hyperplasia and/or cancer ...), risks (Thrombosis, mood changes, weight gain, breast soreness, ? increased breast ca, others). Instructions were given to take the medication 1 tablet daily starting day 15-24 and to schedule a 3 months follow-up appointment; patient verbalized understanding and agreed with the plan. I spent a total of 20 minutes reviewing the chart, talking to the patient via video and documenting in the medical record. Medications: New medroxyprogesterone (Provera) start Provera 1 tablet daily from day 15-24 cyclically every months, day 1 being 1st day of menses 10 mg PO DAILY 10 days 30 tabs 0RF Coding Level of Care Code Tele Est Pt Level 3 (74639) Diagnoses Abnormal uterine bleeding N93.9
== END 2024-01-28 15:38 | disposition home or self-care (01) ==
LOC: HO.HWS 13:12
PROVIDERS: PCP Physician Assistant; Visit Provider Obstetrics & Gynecology
DX: N93.9 Abnormal uterine and vaginal bleeding, unspecified (principal)
CPT/HCPCS: 99213

== ENCOUNTER 2024-05-05 13:23 | Outpatient (AMB) | payer OTHER, SELFPAY ==
--- NOTE | 2024-05-05 13:30 | A.OFFVIS_ITS ---
Vital Signs 05/05/24 13:31 Height 5 ft 9 in Weight 160 lb BMI 23.6 BP 120/72 Intake Visit Reasons: medication follow up [employer] Sales Representative Required: No Information Interpreted: non-clinical & clinical Accompanied by: Self / Same As Patient Allergies adhesive tape Adverse Reaction (Mild, Verified 05/05/24 13:32) Rash HPI Comments Details: Presenting for follow-up regarding Provera. The patient did not fill the the medication prescription . Her menstrual cycles remain to be irregular. The following workup was done.: H&H= 13.4/38.3 TSH, hCG, GC and chlamydia were negative. Endometrial biopsy pathology showed the following: Benign proliferative endometrium with glandular and stromal breakdown; no atypia or carcinoma Co testing was done was negative. Mammogram was BI-RADS 1 Pelvic ultrasound showed the following: IMPRESSION: Unremarkable pelvic ultrasound. No uterine fibroid is presently identified [facility] Medical History Insomnia Chronic fatigue syndrome Anxiety LESLEY II (cervical intraepithelial neoplasia II) Abdominal wall asymmetry Urinary incontinence Vitamin D deficiency Depression Surgical History Hx of prior ablation treatment Hx of tubal ligation Family History Mother Diabetes mellitus Sister Diabetes mellitus Maternal Grandmother Diabetes mellitus Father HTN (hypertension) Colon polyp Schizophrenia Paternal Aunt Breast cancer Maternal Aunt Breast cancer Paternal Grandfather Colon cancer Maternal Aunt Stomach cancer Social History Household Members: Significant Other and Children Housing: House Alcohol intake: current Alcohol intake frequency: holidays/special occasions only Patient Tobacco Use Status: Never used Tobacco Current occupational status: employed 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 Sexual orientation: Straight/Heterosexual Gender identity: Female Female Reproductive History Menstrual Age of Menarche: 16 Review of Systems Const All systems reviewed & are unremarkable except as noted in HPI and below Reports as per HPI and Reports no additional complaints GI Reports no additional complaints Reports no additional complaints Physical Exam Vital Signs: Last Vital Signs BP 120/72 05/05/24 13:31 BMI result Body Mass Index 23.6 Assessment & Plan Assessment & Plan (1) Abnormal uterine bleeding: Comment: History of ablation Code(s): N93.9 - Abnormal uterine and vaginal bleeding, unspecified Category: Medical Plan: Discussed with the patient the results of the work up done and options of treatment including but not limited to BCP's, cyclic Progesterone, Mirena IUD, endometrial ablation and hysterectomy. All pros, cons, risks and benefits of each option were discussed with the patient and the patient decided to go ahead with cyclic Provera, so a more detailed discussion re: Progesterone treatment including mechanism of action, benefits (regular menses, endometrial protection form unopposed estrogen and reduction in the risk of endometrial hyperplasia and/or cancer ...), risks (Thrombosis, mood changes, weight gain, breast soreness, ? increased breast ca, others). Instructions were given to use a back- up method for contraception since this is not a method control, take the medication 1 tablet daily starting day 15-24 and to schedule a 3 months follow- up appointment; patient verbalized understanding and agreed with the plan. Medications: Refilled medroxyprogesterone (Provera) start Provera 1 tablet daily from day 15-24 cyclically every months, day 1 being 1st day of menses 10 mg PO DAILY 10 days 30 tabs 0RF Coding Level of Care Code Est Pt Level 3 (61725) Diagnoses Abnormal uterine bleeding N93.9
[2024-05-05 13:31] VITALS: BP 120/72; BMI 23.6
--- OUTSIDE RECORDS SUMMARY | 2024-05-05 13:40 | XMS_ITS | Referral Summary ---
Author Organization [facility] Address [address] [place] [address] Care Team Providers Care Bilingual Case Manager Name Role Phone Daniel Freeman MD Primary Care Provider [phone] Encounters Date Type Department Care Team Description 04/20/2024 Sudox [place] Message [facility] [address] [place] [address] [phone] Chandni Rebollar MD Celexa from Last 3 Months Allergies Active Allergy Reactions Criticality Noted Date Comments Adhesive Tape-Silicones Rash 07/28/2023 Medications omeprazole (PriLOSEC) 40 mg capsule SMARTSI Capsule(s) By Mouth Twice Daily 3 Active oxybutynin XL (DITROPAN XL) 10 mg tablet Take 10 mg by mouth once a day. Active cetirizine (ZyrTEC) 10 mg tablet Take 1 tablet by mouth once a day. 3 Active cholecalciferol (VITAMIN D3) 1,000 unit tablet SMARTSI Tablet(s) By Mouth Daily 4 Active EPINEPHrine (EPIPEN) 0.3 mg/0.3 mL injection syringe USE DIRECTED FOR ANAPHYLAXIS 4 Active Linzess 145 mcg capsule SMARTSI Capsule(s) By Mouth Daily 3 Active melatonin 3 mg tablet Take 10 mg by mouth nightly. Active DM/acetaminophe n/doxylamine (VICKS NYQUIL NIGHTTIME RELIEF ORAL) Take by mouth at bed time. sleep Active citalopram (CeleXA) 40 mg tabletIndicatio ns:Anxiety Take 1 tablet (40 mg total) by mouth once a day. 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 Social History Tobacco Use Types Packs/Day Years Used Date Smoking Tobacco: Never Smokeless Tobacco: Never Tobacco Cessation:Counseling Given: Not Answered Alcohol Use Standard Drinks/Week Comments Yes 2 (1 standard drink = 0.6 oz pur e alcohol) Comments Unknown Sex and Gender Information Value Date Recorded Sex Assigned at Female 05/26/2023 1:47 PM EDT Legal Sex Female 8:55 AM EST Gender Identity Female 05/26/2023 1:47 PM EDT Sexual Orientation Straight 05/26/2023 1: 47 PM EDT Last Filed Vital Signs Vital Sign Reading Time Taken Comments Blood Pressure 130/74 10/23/2023 12:15 PM EDT Pulse 73 10/23/2023 12:15 PM EDT Temperature 36.4 ??C (97.6 ??F) 10/23/2023 12:12 PM E DT Respiratory Rate 16 10/23/2023 12:12 PM EDT Oxygen Saturation 98% 07/28/2023 2:45 PM EDT Inhaled Oxygen Concentration - - Weight 73.3 kg (161 lb 9.6 oz) 07/28/2023 2:45 P M EDT Height 175.3 cm (5' 9 ) 10/23/2023 12:12 PM EDT Body Mass Index - - Plan of Treatment Upcoming Encounters Date Type Department Care Team (Late st Contact Info) Description 06/24/2024 9:30 AM EDT Office Visit [facility] [address] [place] [address] Chandni Rebollar MD [address] [place] [phone] Insurance HNE Care Teams Bilingual Case Manager Relationship Specialty Start Date End Date Daniel Freeman MD [address] [place] [phone] PCP - General Internal Medicine 05/07/23
--- OUTSIDE RECORDS SUMMARY | 2024-05-05 13:40 | XMS_ITS ---
Author Organization [facility], [facility] Address [address] [facility] [address] [place] [address] Care Team Providers Care Demolitionist Name Role Phone Ngozi Hanson Primary Care Provider [phone] NGOZI HANSON Unavailable Unavailable Nacho Butler Unavailable [phone] REASON FOR VISIT 4-5 month f/u Encounters Encounter Location Date Provider Diagnosis [address] [place] [address] 04/07/2024 Nacho Butler Plan Of Treatment No Information Progress Notes * ROSS BOYLEESGenieDOB:07/1980 (43 yo F)Acc No.[id number]:04/07/2024 Progress Notes Patient:?Saadia LANCASTER Provider:?Nacho Butler PA-C :1980???Age:43 Y???Sex:Female D ate:04/07/2024 Address:[address] [place], [place] [id number] Pcp:Ngozi Hanson Subjective: * Chief Complaints: * ???1. 4-5 month f/u. * Medical History:? Objective: * Vitals:? Assessment: Plan: * Treatment: * * Electronic signature of BELLA Harris rd on 05/05/2024 at 01:39 PM EST Sign off status: Pending * Provider:?Nacho Butler PA-C Date:? Generated for Yeniferi ng/Faprakashg/eTransmitting on:?05/05/2024 01:39 PM EST
--- OUTSIDE RECORDS SUMMARY | 2024-05-05 13:40 | XMS_ITS ---
Author Organization [employer] Address [address] [address] Care Team Providers Care Traffic Engineering Technician Name Role Phone Ngozi Hanson Primary Care Provider NGOZI HANSON Unavailable Unavailable Nacho Butler Unavailable [phone] Allergies Allergen (clinical drug ingredient) Drug/Non Drug Allergy documented on EMR Reaction Allergy Type Onset Date Status Adhesive rash Allergy Active Results Component Value Reference Range Notes Sleep Study (Home Study) Reviewed date:12/05/2023 12:46:57 PM Interpretation: Performing Lab: Notes/Report: REASON FOR VISIT pediatric np- insomnia Medications Medication SIG (Take, Route, Frequency, Duration) Notes Start Date End Date Status Doxepin HCl 3 MG TAKE 1 TABLET BY SEAMUS TH EVERYDAY AT BEDTIME Oral for 30 Days Not-Taking Citalopram Hydrobromide 20 MG TAKE 1 TABLET BY MOUTH EVERY DAY FOR 30 DAYS Oral for 90 Days Active Vitamin D-[address] 25 MCG (1000 UT) TAKE 1 TABLET BY MOUTH EVERY DAY OTC NOT COVERED' Oral for 30 Days Active EPINEPHrine 0.3 MG/0.3ML Injection for 2 Days Not-Taking Omeprazole 40 MG Oral for 90 Days Not-Taking Esomeprazole Magnesium 40 MG 1 capsule Orally Once a day Active Vitamin D3 50 MCG (2000 UT) TAKE 1 TABLET BY MOUTH EVERY DAY Oral for 90 Days Not-Taking oxyBUTYnin Chloride ER 10 MG Oral for 90 Days Active Cetirizine HCl 10 MG TAKE 1 TABLET BY MO UTH EVERY DAY Oral for 90 Days Active traZODone HCl 100 MG TAKE 1 TABLET BY MO UTH EVERY DAY AT BEDTIME FOR 30 DAYS Oral for 30 Days Not-Taking Zolpidem Tartrate 5 MG Oral for 30 Days Not-Taking GaviLyte-G 236 GM Oral for 1 Days Not-Taking clonazePAM 0.5 MG Oral for 30 Days Not-Taking Social History Tobacco Use: Social History Observation Description Date Details (start date - stop date) Never Smoker NA - NA AUDIT-C (Standard) Question Answer Notes Did you have a drink contain ing alcohol in the past year? Yes How often did you have six o r more drinks on one occasion in the past year? 2 to 4 times a month (2 points) How many drinks did you have on a typical day when you were drinking in the past year? 1 or 2 drinks (0 point) How often did you have a dri nk containing alcohol in the past year? 2 to 4 times a month (2 points) Points 4 Interpretation Positive Tobacco Control (Standard) Question Answer Notes Tobacco use: Nonsmoker Additional Findings: Tobacco non-user Current no nsmoker Problems Problem Type SNOMED Code ICD Code Onset Dates Problem Status W/U Status Risk Notes Problem Insomnia (015004747) Insomnia (G47.00) Active confirmed Problem Allergic rhinitis (55623902) Allergic rhinitis (J30.9) Active confirmed Problem Asthma (120735295) Asthma (J45.909) Active confirmed Problem Ataxic gait (81749067) Ataxic gait (R26.0) Active confirmed Problem Migraine variant with headache (disorder) (276345483) Migraine headache (G43.909) Active confirmed Problem Irritable bowel syndrome (49018081) IBS (irritable bowel syndrome) (K58.9) Active confirmed Problem Hyperlipidemia (97124009) Hyperlipidemia (E78.5) Active confirmed Problem Hypersomnia (92102307) Hypersomnia (G47.10) Active confirmed Vital Signs Blood pressure systolic 100 mm Hg 12/03/19 24 Blood pressure diastolic 66 mm Hg 024 Heart Rate 74 /min 12/03/2023 Height 69 in 12/03/2023 Weight 166 lbs 12/03/2023 BMI 24.51 kg/m2 12/03/2023 Oximetry 96 % 12/03/2023 Encounters Encounter Location Date Provider Diagnosis [address] [address] 12/03/2023 Nacho Butler Hypersomnia G47.10 Assessments Encounter Date Diagnosis (ICD Code) Assessment Notes Treatment Notes Treatment Clinical Notes Section Notes 12/03/2023 Hypersomnia (ICD-10 - G47.10) She is suffering from significant hypersomnia. She certainly could have obstructive sleep apnea given the report of snoring and given that she has woken herself up gasping. I have ordered her for a home sleep study to further evaluate. If this is positive we will start CPAP but we did discuss alternative treatments. We discussed the pathophysiology, treatment, and prognosis of obstructive sleep apnea in detail. We also reviewed the neuropsychological and cardiopulmonary sequelae of nontreatment. Given the extent of her hypersomnia and some of her other complaints a central hypersomnia is certainly a possibility. We discussed the pathophysiology of this group of disorders. If her home sleep study is normal I will order her for a PSG with next day MSLT to evaluate further. 12/03/2023 Other This visit was recorded with Héctor ROY, which assisted in writing portions of the note. The note was edited for content and clarity but it is possible that some errors remain. Plan Of Treatment Next Appt Details Follow Up: 4-5 months, Reaso n: Progress Notes * Saadia SANFORDkristynDOB:07/1980 (43 yo F)Acc No.[id number]:12/03/2023 Progress Notes Patient:?Saadia SANFORD Provider:?Nacho Butler PA-C :1980???Age:43 Y???Sex:Female D ate:12/03/2023 Address:[address] [place] [address] Pcp:Ngozi Hanson Subjective: * Chief Complaints: * ???Reheater- insomnia * HPI: ???CS:? Ms. Gurmeet Pham is a 43-year-old woman here for a new patient evaluation for insomnia. She has been experiencing issues with sustained insomnia for over 5 years and reports that these issues have persisted for at least 10 years. She mentioned experiencing a tremor that was treated by a neurologist with clonazepam, which made her tired.? Interestingly she says that to counteract the tiredness, she was prescribed Ambien. At one point, she was taking clonazepam BID, which made her feel tired in the morning. She has since stopped taking these medications based on the recommendation of a new neurologist.? The neurologist she sees at [facility] does not practicing medicine and referred her here. Ms. Gurmeet Pham currently has a bedtime routine that starts at 7 or 8 PM. She performs non-taxing activities like folding clothes and listening to an audiobook to wind down. She typically tries to go to bed around 9:30 PM, but it takes her about an hour to fall asleep while she continues listening to her audiobook. She often wakes up twice in the middle of the night that she can remember. She lives alone, has no bed partner, and no pets in the room. Her sleeping environment is described as cool, dark, and quiet, and she usually wakes up between 6 and 7 AM.? 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 She has had a sleep study in 2006 at a facility that she thinks did not indicate any sleep apnea, although she reports snoring and occasionally catching herself not breathing even when she is not asleep. She consumes alcohol on weekends at most and uses a 5-hour energy drink at 7 AM daily for caffeine.? She has experienced sleep paralysis once in her life. She denies any hypnagogic/hypnopompic hallucination.? She has had some episodes of body heaviness where she feels she is not able to move for a minute or so.? She would describe this as feeling like she has been given a paralytic. This is not necessarily in response to emotion and can happen randomly.? It is significant enough that her daughter has needed to grab the wheel while she has been driving. * ROS:?ROS performed and that which is not noted in the HPI is considered to be negative and/or noncontributory at this time. * Medical History:? * Surgical History:?Uterine ab lation 2017Tubal Ligation ep 2021 * Hospitalization/Major Diagno stic Procedure:?No Hospitalization History. * Family History:?Father: amaya locke, Mental health, diagnosed with Hyperlipidemia.?Mother: alive, diagnosed with Diabetes.?1 brother(s) , 2 sister(s) - healthy. 1 son(s) , 3 daughter(s) - healthy. .? * Social History:?Tobacco Use:?Tobacco Control (Standard)?Tobacco use:?Nonsmoker ?Additional Findings: Tobacco non-user?Current nonsmoker ???Drugs/Alcohol:?Caffeine?Intake:?1-2 cups per day Soda, 5 hour energy drink ?Do you smoke marijuana?: Denies. ?Do you drink alcohol?: Socially. ???Drug/Alcohol:?AUDIT-C (Standard)?Did you have a drink containing alcohol in the past year??Yes ?How often did you have six or more drinks on one occasion in the past year??2 to 4 times a month (2 points) ?How many drinks did you have on a typical day when you were drinking in the past year??1 or 2 drinks (0 point) ?How often did you have a drink containing alcohol in the past year??2 to 4 times a month (2 points) ?Points?4 ?Interpretation?Positive * Medications:?TakingEsomepraz ole Magnesium 40 MG Capsule Delayed Release 1 capsule Orally Once a day Cetirizine HCl 10 MG Tablet TAKE 1 TABLET BY MOUTH EVERY DAY Oral oxyBUTYnin Chloride ER 10 MG Tablet Extended Release 24 Hour Oral Citalopram Hydrobromide 20 MG Tablet TAKE 1 TABLET BY MOUTH EVERY DAY FOR 30 DAYS Oral Vitamin D-[address] 25 MCG (1000 UT) Tablet TAKE 1 TABLET BY MOUTH EVERY DAY OTC NOT COVERED' Oral Taking Esomeprazole Magnesium 40 MG Capsule Delayed Release 1 capsule Orally Once a day Taking Cetirizine HCl 10 MG Tablet TAKE 1 TABLET BY MOUTH EVERY DAY Oral Taking oxyBUTYnin Chloride ER 10 MG Tablet Extended Release 24 Hour Oral Taking Citalopram Hydrobromide 20 MG Tablet TAKE 1 TABLET BY MOUTH EVERY DAY FOR 30 DAYS Oral Taking Vitamin D-[address] 25 MCG (1000 UT) Tablet TAKE 1 TABLET BY MOUTH EVERY DAY OTC NOT COVERED' Oral Not-Taking/PRNDoxepin HCl 3 MG Tablet TAKE 1 TABLET BY MOUTH EVERYDAY AT BEDTIME Oral EPINEPHrine 0.3 MG/0.3ML Solution Auto- injector Injection Omeprazole 40 MG Capsule Delayed Release Oral clonazePAM 0.5 MG Tablet Oral Zolpidem Tartrate 5 MG Tablet Oral GaviLyte-G 236 GM Solution Reconstituted Oral Vitamin D3 50 MCG (2000 UT) Tablet TAKE 1 TABLET BY MOUTH EVERY DAY Oral traZODone HCl 100 MG Tablet TAKE 1 TABLET BY MOUTH EVERY DAY AT BEDTIME FOR 30 DAYS Oral Medication List reviewed and reconciled with the patientNot-Taking/PRN Doxepin HCl 3 MG Tablet TAKE 1 TABLET BY MOUTH EVERYDAY AT BEDTIME Oral Not-Taking/PRN EPINEPHrine 0.3 MG/0.3ML Solution Auto-injector Injection Not-Taking/PRN Omeprazole 40 MG Capsule Delayed Release Oral Not-Taking/PRN clonazePAM 0.5 MG Tablet Oral Not-Taking/PRN Zolpidem Tartrate 5 MG Tablet Oral Not-Taking/PRN GaviLyte-G 236 GM Solution Reconstituted Oral Not-Taking/PRN Vitamin D3 50 MCG (1999 UT) Tablet TAKE 1 TABLET BY MOUTH EVERY DAY Oral Not-Taking/PRN traZODone HCl 100 MG Tablet TAKE 1 TABLET BY MOUTH EVERY DAY AT BEDTIME FOR 30 DAYS Oral Medication List reviewed and reconciled with the patient * Allergies:?Adhesive: robert[ Allergies Verified] Objective: * Vitals:?HR:74/min, BP:100/66 mm Hg, Wt:166lbs, BMI:24.51Index, Ht: 69 in, Oxygen sat %:96%, Ht-cm: 175.26 cm, Wt-k.3 kg. * Examination: ???General Examination: ?GENERAL APPEARANCE:?non-toxic, and in no acute distress.?HEAD:?normocephalic, atraumatic.?EARS:?hearing intact to conversation.?ORAL CAVITY:?Uvula midline, Malampatti 3.?Neurological: ?Cortical Functions:?alert and oriented.?CRANIAL NERVES:?I - Not Tested II, III , IV, - Pupils ERRLA. EOM were full, with normal pursuit and saccade, and without pain V - Facial sensation and motor functions intact VII - No asymmetry or weakness VIII - Acuity intact to conversation bilaterally IX , X - Palate andrey midline XI - Sternocleidomastoid, trapezius strength intact XII - Tongue protruded midline w/o atrophy or fasciculations.?COORDINATION:?no appendicular dysmetria or truncal ataxia noted.?GAIT AND STATION:?Gait is grossly normal.?SPEECH:?no dysarthria noted.?MUSCLE BULK:?normal muscle bulk and tonein the bilateral upper and lower extremities.?INVOLUNTARY MOVEMENTS:?No abnormal movements appreciated.? Assessment: * Assessment: 1.?Hypersomnia - G47.10??? Plan: * Treatment: * Clinical Notes: She is suffering from significant hypersomnia. She certainly could have obstructivesleep apnea given the report of snoring and given that she has woken herself up gasping. I have ordered her for a home sleep study to further evaluate. If this is positive we will start CPAP but we did discuss alternative treatments. We discussed the pathophysiology, treatment, and prognosis of obstructive sleep apnea in detail. We also reviewed the neuropsychological and cardiopulmonary sequelaeof nontreatment. Given the extent of her hypersomnia and some of her other complaints a central hypersomnia is certainly a possibility. We discussed the pathophysiology of this group of disorders. If her home sleep study is normal I will order her for a PSG with next day MSLT to evaluate further.??2.?Others? Clinical Notes: This visit was recorded with Héctor ROY, which assisted in writing portions of thenote. The note was edited for content and clarity but it is possible that some errors remain.? * Procedure Codes:? * Follow Up:?4-5 months * * Sign off status: Completed Addendum: * ? true * Provider:?Nacho Butler PA-C Date:? Generated for Ashley purdy/Yecenia/eTransmitting on:?05/05/2024 01:40 PM EST History and Physical Notes * HPI (History of Present Illness) Category Sub-Category Detail Notes Category Not es CS Ms. Gurmeet Pham is a 43-year-old woman here for a new patient evaluation for insomnia. She has been experiencing issues with sustained insomnia for over 5 years and reports that these issues have persisted for at least 10 years. She mentioned experiencing a tremor that was treated by a neurologist with clonazepam, which made her tired. Interestingly she says that to counteract the tiredness, she was prescribed Ambien. At one point, she was taking clonazepam BID, which made her feel tired in the morning. She has since stopped taking these medications based on the recommendation of a new neurologist. The neurologist she sees at [facility] does not practicing medicine and referred her here. Ms. Gurmeet Pham currently has a bedtime routine that starts at 7 or 8 PM. She performs non-taxing activities like folding clothes and listening to an audiobook to wind down. She typically tries to go to bed around 9:30 PM, but it takes her about an hour to fall asleep while she continues listening to her audiobook. She often wakes up twice in the middle of the night that she can remember. She lives alone, has no bed partner, and no pets in the room. Her sleeping environment is described as cool, dark, and quiet, and she usually wakes up between 6 and 7 AM. 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 She has had a sleep study in 2006 at a facility that she thinks did not indicate any sleep apnea, although she reports snoring and occasionally catching herself not breathing even when she is not asleep. She consumes alcohol on weekends at most and uses a 5-hour energy drink at 7 AM daily for caffeine. She has experienced sleep paralysis once in her life. She denies any hypnagogic/hypnopompic hallucination. She has had some episodes of body heaviness where she feels she is not able to move for a minute or so. She would describe this as feeling like she has been given a paralytic. This is not necessarily in response to emotion and can happen randomly. It is significant enough that her daughter has needed to grab the wheel while she has been driving. Examination Category Sub-Category Detail Notes Category Not es Neurological Cortical Functions: alert and oriented CRANIAL NERVES: I - Not Tested II, III , IV, - Pupils ERRLA. EOM were full, with normal pursuit and saccade, and without pain V - Facial sensation and motor functions intact VII - No asymmetry or weakness VIII - Acuity intact to conversation bilaterally IX , X - Palate andrey midline XI - Sternocleidomastoid, trapezius strength intact XII - Tongue protruded midline w/o atrophy or fasciculations COORDINATION: no appendicular dysm etria or truncal ataxia noted GAIT AND STATION: Gait is grossly norm al SPEECH: no dysarthria noted MUSCLE BULK: normal muscle bulk a nd tone in the bilateral upper and lower extremities INVOLUNTARY MOVEMENTS: No abnormal movem ents appreciated General Examination GENERAL APPEARANCE: non-toxic, and in no acute distress HEAD: normocephalic, atrau matic EARS: hearing intact to co nversation ORAL CAVITY: Uvula midline, Malam ulysses 3
--- OUTSIDE RECORDS SUMMARY | 2024-05-05 13:40 | XMS_ITS | Patient Health Record ---
Author Organization [employer] Address [address] [address] Care Team Providers Care Chairlift Operator Name Role Phone Ngozi Hanson Primary Care Provider NGOZI HANSON Unavailable Unavailable Nacho Butler Unavailable [phone] Allergies Allergen (clinical drug ingredient) Drug/Non Drug Allergy documented on EMR Reaction Allergy Type Onset Date Status Adhesive rash Allergy Active Results Component Value Reference Range Notes Sleep Study (Home Study) Reviewed date:12/05/2023 12:46:57 PM Interpretation: Performing Lab: Notes/Report: Reason For Referral No Information Medications Medication SIG (Take, Route, Frequency, Duration) Notes Start Date End Date Status Zolpidem Tartrate 5 MG Oral for 30 Days Not-Taking Esomeprazole Magnesium 40 MG 1 capsule Orally Once a day Active Vitamin D3 50 MCG (1999 UT) TAKE 1 TABLET BY MOUTH EVERY DAY Oral for 90 Days Not-Taking GaviLyte-G 236 GM Oral for 1 Days Not-Taking oxyBUTYnin Chloride ER 10 MG Oral for 90 Days Active Cetirizine HCl 10 MG TAKE 1 TABLET BY MO UTH EVERY DAY Oral for 90 Days Active traZODone HCl 100 MG TAKE 1 TABLET BY MO UTH EVERY DAY AT BEDTIME FOR 30 DAYS Oral for 30 Days Not-Taking Doxepin HCl 3 MG TAKE 1 TABLET BY SEAMUS TH EVERYDAY AT BEDTIME Oral for 30 Days Not-Taking Citalopram Hydrobromide 20 MG TAKE 1 TABLET BY MOUTH EVERY DAY FOR 30 DAYS Oral for 90 Days Active Vitamin D-[address] 25 MCG (999 UT) TAKE 1 TABLET BY MOUTH EVERY DAY OTC NOT COVERED' Oral for 30 Days Active EPINEPHrine 0.3 MG/0.3ML Injection for 2 Days Not-Taking clonazePAM 0.5 MG Oral for 30 Days Not-Taking Omeprazole 40 MG Oral for 90 Days Not-Taking Social History Tobacco Use: Social [...] Problem Status W/U Status Risk Notes Problem Ataxic gait (38371647) Ataxic gait (R26.0) Active confirmed Problem Insomnia (560887872) Insomnia (G47.00) Active confirmed Problem Asthma (517444511) Asthma (J45.909) Active confirmed Problem Irritable bowel syndrome (18442694) IBS (irritable bowel syndrome) (K58.9) Active confirmed Problem Hyperlipidemia (63872811) Hyperlipidemia (E78.5) Active confirmed Problem Allergic rhinitis (46643217) Allergic rhinitis (J30.9) Active confirmed Problem Migraine variant with headache (disorder) (980401947) Migraine headache (G43.909) Active confirmed Problem Hypersomnia (45023268) Hypersomnia (G47.10) Active confirmed Vital Signs Heart Rate 74 /min 12/03/2023 Blood pressure diastolic 66 mm Hg 12/03/2023 Oximetry 96 % 12/03/2023 Height 69 in 12/03/2023 Blood pressure systolic 100 mm Hg 12/03/2023 Weight 166 lbs 12/03/2023 BMI 24.51 kg/m2 12/03/2023 Encounters Encounter Location Date Provider Diagnosis [address] [address] 12/03/2023 Nacho Butler Hypersomnia G47.10 Assessments Encounter [...] that some errors remain. Plan Of Treatment No Information Insurance Providers Payer Name Payer Address Payer Phone Subscriber Number Group Number Insured Name Patient Relationship to Insured Coverage Start Date Coverage End Date [facility] [address] [place] [address] [id number] Genie Lancaster Self - patient is the insured Medical (General) History Medical History History ICD Code Insomnia G47.00 Allergic rhinitis J30.9 Asthma J45.909 Ataxic gait R26.0 Suicidal ideations R45.851 Intermittent tremor R25.1 Migraine headache G43.909 Syncope R55 IBS (irritable bowel syndrome) K58.9 Family history of malignant neoplasm of breast Z80.3 Hyperlipidemia E78.5 Surgical History Surgery Date(Month/Year) Uterine ablation 2017 Tubal Ligation 2017 [facility] 2021
--- OUTSIDE RECORDS SUMMARY | 2024-05-05 13:40 | XMS_ITS | Encounter Summary ---
Author Organization [facility] Address [address] [place] [address] Care Team Providers Care Inspector Insulation Name Role Phone Daniel Freeman MD Primary Care Provider [phone] Encounter Details Date Type Department Care Team (Late st Contact Info) Description 04/20/2024 myChart Message [facility] Neurology Clinic [address] [place] [address] Chandni Rebollar MD [address] [place] [address] Celexa Social History Tobacco Use Types Packs/Day Years Used Date Smoking Tobacco: Never Smokeless Tobacco: Never Alcohol Use Standard Drinks/Week Comments Yes 2 (1 standard drink = 0.6 oz pur e alcohol) Comments Unknown Sex and Gender Information Value Date Recorded Sex Assigned at Female 05/26/2023 1:47 PM EDT Legal Sex Female 8:55 AM EST Gender Identity Female 05/26/2023 1:47 PM EDT Sexual Orientation Straight 05/26/2023 1: 47 PM EDT documented as of this encounter Miscellaneous Notes * Addendum Note - Estrada Escobar MD - 04/23/2024 3:22 PM ESTAddended by: ESTRADA ESCOBAR on: 04/23/2024 03:22 PM Modules accepted: Orders * Telephone Encounter - Estrada Esocbar MD - 04/23/2024 3:22 PM EST Orders Placed This Encounter DISCONTD: citalopram (CeleXA) 10 mg tablet citalopram (CeleXA) 40 mg tablet New updated script sent * Telephone Encounter - Estrada Escobar MD - 04/23/2024 1:10 PM EST Orders Placed This Encounter citalopram (CeleXA) 10 mg tablet documented in this encounter Plan of Treatment Upcoming Encounters Date Type Department Care Team (Late st Contact Info) Description 06/24/2024 9:30 AM EDT Office Visit [facility] Neurology Clinic [address] [place] [address], [place] [id number] Chandni Rebollar MD [address] [place] [address] documented as of this encounter Visit Diagnoses Diagnosis Anxiety- Primary Anxiety state, unspecified documented in this encounter Care Teams Inspector Insulation Relationship Specialty Start Date End Date Daniel Freeman MD [address] [place] [id number] PCP - General Internal Medicine 05/07/23 documented as of this encounter
--- OUTSIDE RECORDS SUMMARY | 2024-05-05 13:40 | XMS_ITS | Clinical Summary ---
Author Organization [facility] Address [address] [place] [address] Care Team Providers Care Spring Upholsterer Name Role Phone Daniel Freeman MD Primary Care Provider [phone] Allergies Active Allergy Reactions Criticality Noted Date [...] by mouth once a day. 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 Encounters Date Type Department Care Team Description 04/20/2024 myChart Message [facility] Neurology Clinic [address] [place] [address] Chandni Rebollar MD Celexa from Last 3 Months Social History Tobacco Use Types Packs/Day Years [...] Description 06/24/2024 9:30 AM EDT Office Visit [facility] Neurology Clinic [address] [place] [address] Chandni Rebollar MD [address] [place] [phone] Health Maintenance Due Date Last Done Comments Cervical Cancer Screening 1982 HIV Screening 1980 HPV and Pap Smear 1982 Hepatitis C Screening 1982 Pap Smear 1982 Varicella Vaccines (1 of 2 - 13+ 2-dose series) 06/20/1995 Hepatitis B Vaccines (1 of 3 - 19+ 3-dose series) 2001 04/01/2017, 03/03/2017 Mammogram 2022 COVID-19 Vaccine (4 - 2023-2 5 season) 2023 04/07/2021, 04/22/2020, 04/01/2020 Influenza Vaccine (#1) 2023 9, 12/31/2017, 02/18/2017 Alcohol/Substance Use Screening 03/17/2024 Depression Screening and Follow-Up 03/17/2024 Social Drivers of Health Annual Screening 03/17/2024 DTaP,Tdap,and Td Vaccines (3 - Td or Tdap) 01/24/2030 01/25/2020, 12/15/2016 RSV Vaccine (60+ years old and patients) (1 - 1-dose 75+ series) 2057 Pneumococcal Vaccine: Pediatric (0-5 Years) and At-Risk Patients (6-50 Years) Aged Out No longer eligible based on patient's age to complete this topic Insurance Care Teams Spring Upholsterer Relationship Specialty Start Date End Date Daniel Freeman MD [address] [place] [id number] PCP - General Internal Medicine 05/07/23
--- OUTSIDE RECORDS SUMMARY | 2024-05-05 13:41 | XMS_ITS | Clinical Summary ---
Author Organization [facility] ity Address [address] [place] [address] Care Team Providers Care Tack Maker Name Role Phone Bayron Camp MD Primary Care Provider Allergies No known active allergies Medications omeprazole (PriLOSEC) [address] capsuleIndicati ons:Gastroesoph ageal reflux disease without esophagitis TAKE 1 CAPSULE BY MOUTH TWICE A DAY 180 capsule 03/03/20 24 Active cholecalciferol (VITAMIN D-3) 50 mcg (2,000 unit) tablet Take 1 tablet (2,000 Units total) by mouth 1 (one) time each day. 12/30/19 24 Active eszopiclone (LUNESTA) 1 mg tablet Take 1 tablet (1 mg total) by mouth at bedtime as needed. Max Daily Amount: 1 mg 12/09/19 24 Active citalopram (CeleXA) 40 mg tablet Take 1 tablet (40 mg total) by mouth 1 (one) time each day. 04/25/19 21 Active EPINEPHrine (EpiPen 2-Horacio) 0.3 mg/0.3 mL injection USE DIRECTED FOR ANAPHYLAXIS 07/14/19 24 Active nitrofurantoin (MACRODANTIN) 100 mg capsule Take 1 Capsule by mouth as needed. Active oxyBUTYnin XL (DITROPAN-XL) 10 mg 24 hr tablet Take 10 mg by mouth daily. Active cetirizine (ZyrTEC) 10 mg tablet TAKE 1 TABLET BY MOUTH EVERY DAY 90 tablet 1 04/14/19 25 Active cetirizine (ZyrTEC) 10 mg tablet Take 1 tablet (10 mg total) by mouth 1 (one) time each day. 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 Michaels with negative colonsocopy 04/28 Overactive bladder 11/02/2014 Overview (03/05/2024): W/ some incontinence, Urology, Postcoital urinary tract infection 11/02/2014 Overview (03/05/2024): Postcoital prophylaxis prescribed Pre-syncope 11/02/2014 Overview (03/05/2024): Seen with neurology and negative EEG and no cause found Immunizations Name Administration Dates Next Due Hepatitis B Pediatric (Enger ix B; Recombivax HB) to less than 20 yo 04/01/2017,03/03/2017 Influenza Quadravalent, MDCK , 0.5ml, with preservative (Flucelvax) 6mo and older 02/18/2017 Influenza trivalent, 0.5mL, preservative free (Fluarix; FluLaval; Fluzone) ages 6mo and older (Afluria) 3 years and older 03/15/2019,12/31/2017 Influenza, Unspecified 12/06/2022,2021,01/20/2020,2002 MMR, measles mumps and rubel la Live (Priorix; M-M-R II) 12mo and older 04/01/2017,02/26/2017 Measles 01/06/2014 Mumps 01/06/2014 [employer] SARS-CoV-2 COVID-19, mRNA, LNP-S, preservative free 04/22/2020,04/01/2020 Tdap Tetanus diptheria acell ular pertussis (Boostrix; Adacel) 7yo and older 01/25/2020,12/15/2016 Surgical History Surgery Date Site/Laterality Comments TUBAL LIGATION 02/14/2007 PROCEDURE: HISTORICAL TUBAL LIGATION EYE SURGERY 03/17/2013 PROCEDURE: HISTORICAL EYE SURGERY OTHER SURGICAL HISTORY PROCEDURE: HISTORICAL UNSPECIFIED SURGERY; COMMENT: some kind of ablation COLONOSCOPY 04/25/2011 PROCEDURE: HISTORICAL COLONOSCOPY; COMMENT: negative CERVICAL BIOPSY W/ LOOP ELECTRODE EXCISION 09/2021 PROCEDURE: OK CONIZATION CERVIX W/WO D&C RPR ELTRD EXC Medical History Medical History Date Comments Anxiety disorder 11/02/2014 DX:Anxiety diso rder Depression 11/02/2014 DX:Depression Diastasis of rectus abdominis 03/03/2017 DX :Diastasis of rectus abdominis Easy bruisability 11/02/2014 DX:Easy bruisa bility; COMMENT: 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 IBS (irritable bowel syndrome) 11/02/2014 D X:IBS (irritable bowel syndrome); COMMENT: Constipation: Seen with Dr. Michaels with negative colonsocopy 04/28 Overactive bladder 11/02/2014 DX:Overactive bladder; COMMENT: W/ some incontinence, Urology, Postcoital urinary tract infection 11/02/2014 DX:Postcoital urinary tract infection; COMMENT: Postcoital prophylaxis prescribed Pre-syncope 11/02/2014 DX:Pre-syncope; COMMENT: Seen with neurology and negative EEG and no cause found Dysplasia of cervix, high grade LESLEY 2 12/10/2021 DX:Dysplasia of cervix, high grade LESLEY 2; COMMENT: LEEP 09/2021 Family History Medical History Relation Name Comments No Known Problems Brother Asthma Daughter 1 ADD / ADHD Daughter 2 autism Asthma Daughter 3 Schizophrenia Father Diabetes Maternal Grandmother Diabetes Mother Diabetes Sister 1 No Known Problems Sister 2 ADD / ADHD Son autism Relation Name Status Comments Brother Alive Daughter 1 Alive Daughter 2 Alive Daughter 3 Alive Father Alive Maternal Grandmother Alive Mother Alive Sister 1 Alive Sister 2 Alive Son Alive Social History Tobacco Use Types Packs/Day Years Used Date Smoking Tobacco: Never Smokeless Tobacco: Never Alcohol Use Standard Drinks/Week Comments Yes 0 (1 standard drink = 0.6 oz pur e alcohol) Comments Unknown Sex and Gender Information Value Date Recorded Sex Assigned at Not on file Legal Sex Female 3:33 PM EST Gender Identity Not on file Sexual Orientation Not on file Obstetrics History Last Filed Vital Signs Vital Sign Reading Time Taken Comments Blood Pressure 120/60 11/21/2023 12:58 PM EDT Pulse 78 12/30/2023 3:20 PM EDT Temperature - - Respiratory Rate - - Oxygen Saturation - - Inhaled Oxygen Concentration - - Weight 75.3 kg (166 lb) 12/30/2023 3:20 PM EDT Height 175.3 cm (5' 9 ) 12/30/2023 3:20 PM EDT Body Mass Index 24.51 12/30/2023 3:20 PM EDT Plan of Treatment Health Maintenance Due Date Last Done Comments Breast Cancer Screening 1982 Hepatitis B Vaccines (1 of 3 - 19+ 3-dose series) 2001 04/01/2017, 03/03/2017 HIV Screening 02/23/2022 Hepatitis C Screening 02/23/2022 Social Influencers of Health Screening 02/23/2022 Cervical Cancer Screening: Pap Smear 01/27/2023 01/28/2020 COVID-19 Vaccine ( season) 2023 04/07/2021, 04/22/2020, 04/01/2020 Influenza Vaccine (#1) 2023 3, 11/15/2021, 01/20/2020, Additional history exists Depression Screening 12/29/2024 12/30/2023 Cholesterol Screening (Lipid Panel) 10/14/2028 10/15/2023, 10/15/2023 DTaP,Tdap,and Td Vaccines (3 - Td or Tdap) 01/24/2030 01/25/2020, 12/15/2016 MMR Vaccines Aged Out 04/01/2017, 02/26/2017 No lo nger eligible based on patient's age to complete this topic HIB Vaccines Aged Out No longer eligi ble based on patient's age to complete this topic HPV Vaccines Aged Out No longer eligi ble based on patient's age to complete this topic Hepatitis A Vaccines Aged Out No long er eligible based on patient's age to complete this topic IPV Vaccines Aged Out No longer eligi ble based on patient's age to complete this topic Meningococcal ACWY Vaccine Aged Out N o longer eligible based on patient's age to complete this topic Meningococcal B Vacine Aged Out No lo nger eligible based on patient's age to complete this topic Pneumococcal Vaccine: Pediatrics (0 to 5 Years) and At-Risk Patients (6 to 64 Years) Aged Out No longer eligible based on patient's age to complete this topic RSV Immunization Patients Under 20 months Aged Out No longer eligible based on patient's age to complete this topic Varicella Vaccines Aged Out No longer eligible based on patient's age to complete this topic Procedures Procedure Name Priority Date/Time Associated Diagnosis Comments DEPRESSION SCREENING Routine 12/30/2023 LIPID PANEL Routine 10/15/2023 PAP SMEAR Routine 01/28/2020 from Last 3 Months or Most Recently Relevant to Health Maintenance Results * Depression Screening (12/30/2023) [facility]ologist [facility] Depression Screening Abstracted [facility] Provider HEALTH MAINTENANCE Final Result * (ABNORMAL) Lipid panel (10/15/2023) Pathologist [facility] [place] LDL/HDL Ratio 4 0 - 4 Triglycerides 214(A) 0 - 150 mg/dL Cholesterol 217(A) 0 - 200 mg/dL HDL 62 >=40 mg/dL LDL Cholesterol 113(A) 0 - 100 mg/dL Blood Venous blood specimen / Unknown Historical Provider LAB BLOOD ORDERABLES Kimberlee l Result * Pap Smear (01/28/2020) [facility]ologist [facility] Pap smear No interpretation , Abstracted Historical Provider HEALTH MAINTENANCE Final Result from Last 3 Months or Most Recently Relevant to Health Maintenance Care Teams Tack Maker Relationship Specialty Start Date End Date Bayron Camp MD [address] [place] [address] [facility] - General 01/14/23
== END 2024-05-05 13:51 | disposition home or self-care (01) ==
PROVIDERS: PCP Physician Assistant; Visit Provider Obstetrics & Gynecology
DX: N93.9 Abnormal uterine and vaginal bleeding, unspecified (principal)
CPT/HCPCS: 99213

== ENCOUNTER 2024-10-27 08:07 | Emergency (ER) | payer OTHER, SELFPAY ==
--- NOTE | ~2024-10-27 | US_ITS ---
EXAMINATION: US TRIPLEX LOWER EXTREMITY, RIGHT CLINICAL INFORMATION: Edema and pain, right lower extremity. COMPARISON: None available. TECHNIQUE: Color-flow triplex imaging with spectral analysis and compression Doppler were performed on the right lower extremity. FINDINGS: Respiratory variation, normal compression and augmented flow are demonstrated in the interrogated right common femoral vein, superficial femoral vein, profunda femoral vein, popliteal vein and midcalf peroneal and posterior tibial venous segments. There is no Nazario's cyst. US/US venous duplex LE RT IMPRESSION: No acute deep venous thrombosis interrogated, right lower extremity. Negative for DVT. Electronically signed by: Julito Llyod MD 10/27/2024 09:03 AM EDT
--- NOTE | ~2024-10-27 | XR_ITS ---
EXAMINATION: XR CHEST 2 VIEWS HISTORY: cough COMPARISON: Comparison is made with the prior examination dated 06/05/2021. FINDINGS: PA and lateral views of the chest are submitted. The lungs are expanded and clear. There is no pleural effusion, pneumothorax, or pulmonary vascular congestion. The heart is normal in size. The bones are intact. XR/XR chest 2V IMPRESSION: No acute cardiopulmonary abnormality. Electronically signed by: Scott Glover MD 10/27/2024 09:21 AM EDT
[2024-10-27 08:10] VITALS: BP 135/70; PULSE 78; RESP 16; TEMP 36.7; O2SAT 96; BMI 24.6
--- NOTE | 2024-10-27 08:38 | ED.EXTPRO ---
HPI - Extremity Problem General Chief complaint: Extremity Injury, Lower Stated complaint: R calf swelling Time Seen by Provider: 10/27/24 08:26 Source: patient and old records reviewed Mode of arrival: ambulatory Limitations: no limitations History of Present Illness ED Provider: ANNEMARIE CHAN Narrative: 44 yo male with PMH of AUB, anxiety, depression here with c/o flying to [place] 3 weeks ago and then noting R calf pain and swelling no hx of clots no OCP use no other risk factors. She has no chest pain, rash, she feels somd dyspnea but blames it on her severe seasonal allergies and hx of bronchitis this time of year. She has cough but no fevers. She told her PCP who advised her to come to the ED. MD Complaint: extremity pain and extremity swelling Onset (ago): week(s) (3) Pain Consistency: constant Location: right and lower extremity Quality: aching Radiation: none Relieving factors: nothing Exacerbating factors: palpation Associated symptoms: denies other symptoms Context: recent travel Related Data Home Medications ?Medication ?Instructions ?Recorded ?Confirmed cetirizine 10 mg tablet 10 mg PO DAILY 01/28/20 09/28/21 citalopram 40 mg tablet 40 mg PO DAILY 01/28/20 09/28/21 oxybutynin chloride 10 mg 10 mg PO DAILY 01/28/20 09/28/21 tablet,extended release 24 hr ergocalciferol (vitamin D2) 1,250 1,250 mcg PO QWEEK 03/13/21 09/28/21 mcg (50,000 unit) capsule omeprazole 20 mg capsule,delayed 20 mg PO BID 10/14/23 release Previous Rx's ?Medication ?Instructions ?Recorded medroxyprogesterone 10 mg tablet 10 mg PO DAILY 10 days #30 tabs 05/05/24 (Provera) Allergies Allergy/AdvReac Type Severity Reaction Status Date / Time adhesive tape AdvReac Mild Rash Verified 10/27/24 08:13 Review of Systems Review of Systems: Constitutional : No Fever, No Chills, No Fatigue ENT/Mouth : No sore throat, No Rhinorrhea Eyes: No Eye Pain, No Swelling, No Redness Cardiovascular : No Chest Pain, pos SOB Respiratory : pos Cough, No Sputum Gastrointestinal : No Nausea, No Vomiting, No Diarrhea, No abdominal Pain Genitourinary : No Dysuria, No Urinary Frequency, No Hematuria, Musculoskeletal : No joint pain, No Myalgias, No Joint Swelling, pos calf pain Skin : No Skin Lesions, No rash Neuro : No Weakness, No Numbness, No Dizziness, positive Headache All other systems reviewed and are negative FOR[facility]LY [facility], [facility] Past Medical History Attestation statement: The following information was validated with the patient. Source: old records reviewed Medical History Insomnia Chronic fatigue syndrome Anxiety LESLEY II (cervical intraepithelial neoplasia II) Abdominal wall asymmetry Urinary incontinence Vitamin D deficiency Depression Surgical History Hx of prior ablation treatment Hx of tubal ligation Family History Family History Mother Diabetes mellitus Sister Diabetes mellitus Maternal Grandmother Diabetes mellitus Father HTN (hypertension) Colon polyp Schizophrenia Paternal Aunt Breast cancer Maternal Aunt Breast cancer Paternal Grandfather Colon cancer Maternal Aunt Stomach cancer Social History Social History Household Members: Significant Other and Children Housing: House Alcohol intake: current Alcohol intake frequency: holidays/special occasions only Patient Tobacco Use Status: Never used Tobacco Current occupational status: employed 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 Oriented X3. No acute distress. Eyes: Pupils equal, round and reactive to light. ENT: Pharynx normal. Neck: Normal inspection. Neck supple. CVS: Normal heart rate and rhythm. Pulses normal. Respiratory: No respiratory distress. Breath sounds normal. Abdomen: Soft and nontender. Skin: Skin warm and dry. Normal skin color. Normal skin turgor. Extremities: No lower extremity edema. R calf mild posterior ttp - mild increase in size no signs of infection, distal pulses intact Neuro: Oriented X 3. No motor deficit. No sensory deficit. CN2-12 intact Medical Decision Making Medical Decision Making MDM Narrative: 44 yo male with PMH of AUB, anxiety, depression here with c/o R calf pain and swelling after trip 3 weeks ago she c/o some dyspnea as well she has stable VS and clear lungs no chest pain and no infectious symptoms at this time will obtain CBC for anemia, CXR for pneumonia, DVT study and ddimer though I have low prob of VTE, no chest pain or risk factors to suggest ACS. Differential Diagnosis Differential Diagnoses: The differential diagnosis associated with the presentation includes DVT, asthma, bronchitis, no hypoxia / tachycardia to suggest VTE on exam Admission/Observation Consideration of admission/observation: Escalation of care including admission/observation considered work up negative stable for DC Lab Data [facility] Lab Attestation statement: I reviewed the patient's lab results. 10/27/24 08:22 10/27/24 08:22 Labs: Lab Results 10/27/24 10/27/24 Range/Units 08:22 08:46 WBC 7.2 (4.8-10.8) X10*3/uL RBC 4.00 L (4.20-5.50) X10*6/uL Hgb 12.4 (12.0-16.0) g/dl Hct 34.8 L (37.0-47.0) % MCV 87.0 (80.0-98.0) fL MCH 31.0 (27.0-33.0) pg MCHC 35.6 H (31.0-35.0) g/dl RDW 12.1 (11.0-16.0) % Plt Count 335 (160-400) X10*3/uL MPV 9.0 L (9.4-12.3) fL Immature Gran % (Auto) 0.4 (0.0-0.4) % Neut % (Auto) 60.0 (45-73) % Lymph % (Auto) 29.7 (20-40) % [place] % (Auto) 8.2 (2-11) % Eos % (Auto) 1.1 (0-4) % Baso % (Auto) 0.6 (0-2) % Lymph # (Auto) 2.1 (1.2-4.9) X10*3/uL [place] # (Auto) 0.6 (0.1-1.2) X10*3/uL Eos # (Auto) 0.1 (0.0-0.4) X10*3/uL Baso # (Auto) 0.0 (0.0-0.2) X10*3/uL Abs Immat Gran (auto) 0.03 (0.00-0.03) X10*3/uL Absolute Neuts (auto) 4.3 (2.0-8.3) x10*3/uL Absolute Nucleated RBC 0.000 (0.0-0.012) X10*3/uL Nucleated RBC % (auto) 0.0 (0.0-0.2) /100WBC Hold Purple Top SEE NOTE PT 10.3 L (10.9-12.4) SEC INR 0.9 (0.9-1.1) D-Dimer High Sensitivty < 150 NG/ML Hold Green Top See Note Independent Interpretation I performed an independent interpretation of an: EKG, Plain X-Ray (normal ) and Ultrasound (no DVT) Interpretation: Rate: 70 Rhythm: NSR Warren: normal Normal P waves. Normal CELENA. Normal QRS complex. ST T wave : inverted t waves V1 and V2 no FRANCISCO qTC: 410 prior studies: no change from prior The study has been interpreted contemporaneously by me. . Radiology Impression Discussion of test interpretation with radiology: I have reviewed the radiologist's reading. External Record Review External record reviewed: Outpatient record Prescription Management I considered prescription management with: Other Discharge Plan Discharge Clinical Impression: Acute dyspnea, Pain of right calf Patient Disposition: Home, Self-Care Instructions: Dyspnea (ED), Leg Pain (ED) Additional Instructions: normal blood counts negative ddimer test EKG and chest xray are reassuring DVT study is negative please follow up with your doctor and return for any worsening sympotoms or concerns. FINDINGS: Respiratory variation, normal compression and augmented flow are demonstrated in the interrogated right common femoral vein, superficial femoral vein, profunda femoral vein, popliteal vein and midcalf peroneal and posterior tibial venous segments. There is no Nazario's cyst. US/US venous duplex LE RT IMPRESSION: No acute deep venous thrombosis interrogated, right lower extremity. Negative for DVT. Prescriptions: No Action oxybutynin chloride 10 mg tablet extended release 24hr 10 mg PO DAILY citalopram 40 mg tablet 40 mg PO DAILY cetirizine 10 mg tablet 10 mg PO DAILY ergocalciferol (vitamin D2) 1,250 mcg (50,000 unit) capsule 1,250 mcg PO QWEEK omeprazole 20 mg capsule,delayed release(DR/EC) 20 mg PO BID medroxyprogesterone [Provera] 10 mg tablet 10 mg PO DAILY 10 Days Qty: 30 0RF Rx Instructions: start Provera 1 tablet daily from day 15-24 cyclically every months, day 1 being 1st day of menses Stand Alone Forms: Work/School Release Print Language: Slovenian
[2024-10-27 08:40] VITALS: BP 127/76; PULSE 79; RESP 18; TEMP 36.9; O2SAT 96
[2024-10-27 08:50] LABS: Hematocrit 34.8 % (37.0-47.0); Hemoglobin 12.4 g/dl (12.0-16.0); Imm Gran Abs Auto 0.03 X10*3/uL (0.00-0.03); Imm Gran Pct Auto 0.4 % (0.0-0.4); Lymphocytes Absolute Auto 2.1 X10*3/uL (1.2-4.9); MANUAL DIFF FLAG NO; Mean Corpuscular HGB Conc 35.6 g/dl (31.0-35.0); Mean Corpuscular Hemoglobin 31.0 pg (27.0-33.0); Mean Corpuscular Volume 87.0 fL (80.0-98.0); NRBC Abs Auto 0.000 X10*3/uL (0.0-0.012); NRBC Pct Auto 0.0 /100WBC (0.0-0.2); Platelet Count 335 X10*3/uL (160-400); Red Blood Count 4.00 X10*6/uL (4.20-5.50); White Blood Count 7.2 X10*3/uL (4.8-10.8)
[2024-10-27 08:54] LABS: D Dimer High Sensitivity < 150 NG/ML; INTERNATIONAL NORM RATIO 0.9 (0.9-1.1); Prothrombin Time 10.3 SEC (10.9-12.4)
--- NOTE | 2024-10-27 09:08 | ECG_ITS ---
Test Reason : SOB Blood Pressure : */* mmHG Vent. Rate : 70 BPM Atrial Rate : 70 BPM P-R Int : 158 ms QRS Dur : 76 ms QT Int : 380 ms P-R-T Axes : 24 1 21 degrees QTcB Int : 410 ms Normal sinus rhythm Normal ECG When compared with ECG of 15-Jul-2023 18:44, No significant change was found Referred By: Josie Orona Electronically Signed By: Michael Godinez
[2024-10-27 09:14] LABS: Alanine Aminotransferase 18 U/L (0-31); Albumin Level 4.0 g/dL (3.5-5.0); Alkaline Phosphatase 63 U/L (39-117); Anion Gap 10 (12-20); Aspartate Amino Transferase 24 U/L (5-31); Blood Urea Nitrogen 9 mg/dL (9-16); Calcium 8.3 mg/dL (8.4-10.2); Carbon Dioxide 25 mmol/L (22-29); Chloride 105 mmol/L (96-108); Creatinine Clr Calc Pharmacy 144.1; Estimated Glomerular Filt Rate > 60; Potassium 4.0 mmol/L (3.3-5.1); Sodium 136 mmol/L (135-145); Total Protein 7.1 g/dL (6.5-8.0)
[2024-10-27 09:37] VITALS: BP 127/76; PULSE 79; RESP 18; TEMP 36.9; O2SAT 96
--- OUTSIDE RECORDS SUMMARY | 2024-10-27 09:42 | XMS_ITS | Patient Health Record ---
Author Organization [facility] Address [address] [address] Care Team Providers Care Admissions Nurse Name Role Phone Ngozi Hanson Primary Care Provider [phone] NGOZI HANSON Unavailable Unavailable Nacho Butler Unavailable [phone] Allergies Allergen (clinical drug ingredient) Drug/Non Drug Allergy documented on EMR Reaction Allergy Type Onset Date Status Adhesive rash Allergy Active Results Component Value Reference Range Notes Sleep Study (Home Study) Reviewed date:12/05/2023 12:46:57 PM Interpretation: Performing Lab: Notes/Report: Reason For Referral No Information Medications Medication SIG (Take, Route, Frequency, Duration) Notes Start Date End Date Status Zolpidem Tartrate 5 MG Oral; Duration: 30 Days Not-Taking Esomeprazole Magnesium 40 MG 1 capsule Orally Once a day Active Vitamin D3 50 MCG (1999 UT) TAKE 1 TABLET BY MOUTH EVERY DAY Oral; Duration: 90 Days Not-Taking GaviLyte-G 236 GM Oral; Duration: 1 Days Not-Taking oxyBUTYnin Chloride ER 10 MG Oral; Duration: 90 Days Acti ve Cetirizine HCl 10 MG TAKE 1 TABLET BY MO UTH EVERY DAY Oral; Duration: 90 Days Active traZODone HCl 100 MG TAKE 1 TABLET BY MO UTH EVERY DAY AT BEDTIME FOR 30 DAYS Oral; Duration: 30 Days Not-Taking Doxepin HCl 3 MG TAKE 1 TABLET BY SEAMUS TH EVERYDAY AT BEDTIME Oral; Duration: 30 Days Not-Taki ng Citalopram Hydrobromide 20 MG TAKE 1 TABLET BY MOUTH EVERY DAY FOR 30 DAYS Oral; Duration: 90 Days Active Vitamin D-[address] 25 MCG (1000 UT) TAKE 1 TABLET BY MOUTH EVERY DAY OTC NOT COVERED' Oral; Duration: 30 Days Active EPINEPHrine 0.3 MG/0.3ML Injection; Dura tion: 2 Days Not-Taking clonazePAM 0.5 MG Oral; Duration: 30 Days Not-Taking Omeprazole 40 MG Oral; Duration: 90 Days Not-Taking Social History Tobacco Use: [...] W/U Status Risk Notes Problem Ataxic gait (15503114) Ataxic gait (R26.0) Active confirmed Problem Insomnia (095676160) Insomnia (G47.00) Active confirmed Problem Asthma (781765543) Asthma (J45.909) Active confirmed Problem Irritable bowel syndrome (61075678) IBS (irritable bowel syndrome) (K58.9) Active confirmed Problem Hyperlipidemia (80248077) Hyperlipidemia (E78.5) Active confirmed Problem Allergic rhinitis (37999956) Allergic rhinitis (J30.9) Active confirmed Problem Migraine variant with headache (disorder) (236427942) Migraine headache (G43.909) Active confirmed Problem Hypersomnia (G47.10) Active confirmed Vital Signs Heart Rate 74 /min 12/03/2023 Oximetry 96 % 12/03/2023 Blood pressure diastolic 66 mm Hg 12/03/2023 Height 69 in 12/03/2023 Blood pressure systolic 100 mm Hg 12/03/2023 Weight 166 lbs 12/03/2023 BMI 24.51 kg/m2 12/03/2023 Encounters Encounter Location Date Provider Diagnosis [address] [address] 12/03/2023 Nacho Butler Hypersomnia G47.10 Assessments Encounter [...] Insured Coverage Start Date Coverage End Date [facility] [address] [place] [address] [id number] Genie Lancaster Self - patient is the [...]
--- OUTSIDE RECORDS SUMMARY | 2024-10-27 09:42 | XMS_ITS | Referral Summary ---
Author Organization [facility] Address [address] [place] [address] Care Team Providers Care Solar Crew Member Name Role Phone Daniel Freeman MD Primary Care Provider [phone] Allergies Active Allergy Reactions Criticality Noted Date [...] Sign Reading Time Taken Comments Blood Pressure 129/78 07/02/2024 12:56 PM EDT Pulse 89 07/02/2024 12:56 PM EDT Temperature 36.4 C (97.5 F) 07/02/2024 12:55 PM EDT Respiratory Rate 20 07/02/2024 12:55 PM EDT Oxygen Saturation 98% 07/28/2023 2:45 PM EDT Inhaled Oxygen Concentration - - Weight 76 kg (167 lb 8.8 oz) 07/02/2024 12:55 PM EDT Height 175.3 cm (5' 9 ) 10/23/2023 12:12 PM EDT Body Mass Index 24.74 10/23/2023 12:12 PM EDT Plan of Treatment Not on file Insurance Care Teams Solar Crew Member Relationship Specialty Start Date End Date Daniel Freeman MD [address] [place] [id number] PCP - General Internal Medicine 05/07/23
--- OUTSIDE RECORDS SUMMARY | 2024-10-27 09:42 | XMS_ITS | Encounter Summary ---
Author Organization [facility] Address [facility] [place] [address] Care Team Providers Care Occupational Health Nurse Supervisor Name Role Phone Daniel Freeman MD Primary Care Provider Janice Pardo MD Primary Care Prov ider Matt Murdock MD Unavailable Unavailable Lilibeth Michaels MD Unavailable UnavailElizabeth Lantigua PA-C Primary Care Provider [phone] Bayron Camp MD Primary Care Provider Encounter Details Date Type Department Care Team Description 02/13/2021 Pt. Non Urgent Medic al Question Adult Medicine [address] [address] Daniel Freeman MD Social History Tobacco Use Types Packs/Day Years Used Date Smoking Tobacco: Never Smokeless Tobacco: Never Alcohol Use Standard Drinks/Week Comments Yes 0 (1 standard drink = 0.6 oz pur e alcohol) occasionally Sex Assigned at Date Recorded Not on file Job Start Date Occupation Industry Not on file Not on file Not on file COVID-19 Exposure Response Date Recorded In the last month, have you been in contact with someone who was confirmed or suspected to have Coronavirus / COVID-19? No / Unsure 02/13/2021 8:47 AM EST documented as of this encounter Miscellaneous Notes * Telephone Encounter - Senait East M.A. - 02/13/2021 4:27 PM ESTFrom: Genie Levi To: Anastasiya Freeman Sent: 02/13/2021 4:23 PM EST Subject: Vitamin D I have done 6 weeks of high dose Vitamin D I am currently taking 200 unites 2 tablets daily startedthat up 2 weeks ago. documented in this encounter Plan of Treatment Not on file documented as of this encounter Visit Diagnoses Not on filedocumented in this encounter Care Teams Occupational Health Nurse Supervisor Relationship Specialty Start Date End Date Daniel Freeman MD PCP - General Internal Medicine 09/20/14 12/03/21 Janice Haywood MD [address] [place] [id number] PCP - General Internal Medicine 12/04/21 09/28/22 Elizabeth Plummer PA-C [address] [place] [id number] PCP - General Internal Medicine 09/29/22 01/13/23 Bayron Camp MD [address] [place] [id number] PCP - General Internal Medicine 01/14/23 Matt Murdock MD [address] [place] [address] Specialist Otolaryngology 06/05/22 Lilibeth Michaels MD [address] [place] [address] Specialist Gastroenterology 06/05/22 documented as of this encounter
--- OUTSIDE RECORDS SUMMARY | 2024-10-27 09:42 | XMS_ITS | Clinical Summary ---
Author Organization [facility] Address [address] [place] [address] Phone Care Team Providers Care Stars Specialist Name Role Phone Bayron Camp MD Primary Care Provider Allergies No known active allergies Medications cetirizine (ZYRTEC) 10 MG tablet Take 10 mg by mouth daily. Active nitrofurantoin macrocrystaL (MACRODANTIN) 100 MG capsule Take 100 mg by mouth as needed. Active cholecalciferol (VITAMIN D3) 25 MCG (1,000 unit) tablet Take 2,000 Units by mouth daily. Active citalopram (CELEXA) 20 MG tablet Take 40 mg by mouth daily. Active oxyBUTYnin (DITROPAN-XL) 10 MG 24 hr tablet Take 10 mg by mouth daily. Active EPIPEN 0.3 mg/0.3 mL auto-injector Inject 0.3 mg into the muscle once as needed for anaphylaxis. 4 Active doxepin (SILENOR) 3 mg tablet Take 3 mg by mouth nightly at bedtime. 4 Active Active Problems Problem Noted Date Diagnosed Date Weakness of both lower extremities 10/29/2023 Muscle atrophy of lower extremity 10/29/2023 Assessment & Plan (10/29/2023 5:53 PM EDT): Apparent / relative atrophy of bl calves on exam today, ddx includes l-spine origin and neuromuscular disease. No clinical evidence concerning for inflammatory myositis. Input from patient's established neurologist would be helpful, ? EMG / NCS. Right groin pain 10/29/2023 Assessment & Plan (10/29/2023 5:54 PM EDT): Hip versus l-spine origin; baseline plain films Fatigue 10/29/2023 Assessment & Plan (10/29/2023 5:55 PM EDT): Episodically severe fatigue, non-specific and likely multifactorial though again no specific evidence concerning for underlying inflammatory arthritis, connective tissue disease, small vessel vasculitis, or inflammatory myositis. 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 I think this patient's other concerns are unrelated to her mild finger OA. She has had moderate symptomatic benefit with ibuprofen typically 800 mg bid; can also try topical diclofenac to DIPs as needed. No current indication for ongoing rheum-specific f/u; happy to re- evaluate for any clinically significant change. Family History Medical History Relation Comments Schizophrenia Father Relation Status Comments Father Social History Tobacco Use Types Packs/Day Years Used Date Smoking Tobacco: Never Smokeless Tobacco: Never Alcohol Use Standard Drinks/Week Comments Yes 2 (1 standard drink = 0.6 oz pur e alcohol) Education Answer Date Recorded Are you interested in more education? Not on antoine e 05/06/2023 Are you concerned about learning? Not on file 05/06/2023 No 05/06/2023 No 05/06/2023 Digital Access Answer Date Recorded No 05/06/2023 No 05/06/2023 Reliable internet access at home? Not on file 05/06/2023 Device with a working camera? Not on file Comments Unknown Sex and Gender Information Value Date Recorded Sex Assigned at Not on file Legal Sex Female 11:13 AM EST Gender Identity Not on file Sexual Orientation Not on file Last Filed Vital Signs Vital Sign Reading Time Taken Comments Blood Pressure 110/72 10/29/2023 3:03 PM EDT Pulse 73 10/29/2023 3:03 PM EDT Temperature - - Respiratory Rate - - Oxygen Saturation 93% 10/29/2023 3:0 3 PM EDT Inhaled Oxygen Concentration - - Weight 74.3 kg (163 lb 12.8 oz) 10/29/2023 3:03 PM EDT with shoes Height 175.3 cm (5' 9 ) 10/29/2023 3:03 PM EDT patient reported Body Mass Index 24.19 10/29/2023 3:03 PM EDT Plan of Treatment Health Maintenance Due Date Last Done Comments DEPRESSION SCREENING 1994 HEPATITIS C SCREENING 2000 HIV ONE-TIME SCREENING (18-6 5 YEARS) 2000 PAP SMEAR 06/20/2003 MAMMOGRAM 2022 COVID-19 VACCINE ( - 2023-2 5 season) 2023 04/07/2021, 04/22/2020, 04/01/2020 Adult Td,Tdap Booster 01/24/2030 01/25/2020 , 12/15/2016 SMOKING STATUS SCREENING (On ce After 26 Yrs) Completed 10/29/2023 HEPATITIS A VACCINES Aged Out No long er eligible based on patient's age to complete this topic HIB VACCINES Aged Out No longer eligi ble based on patient's age to complete this topic MENINGOCOCCAL VACCINES (ACWY) Aged Out No longer eligible based on patient's age to complete this topic MENINGOCOCCAL VACCINES (B) Aged Out N o longer eligible based on patient's age to complete this topic PNEUMOCOCCAL VACCINES (0-49 years) Aged Out No longer eligible b ased on patient's age to complete this topic Medical Devices Not on file Insurance [facility] Care Teams Stars Specialist Relationship Specialty Start Date End Date Bayron Camp MD [address] [place] [address] PCP - General Internal Medicine 10/29/23 Additional Source Comments The information contained in this document represents components of the legal health record. It is not the complete legal health record.[facility]
--- OUTSIDE RECORDS SUMMARY | 2024-10-27 09:42 | XMS_ITS | Clinical Summary ---
Author Organization [facility] [address] [facility] Address [address] [place] [address] Phone Care Team Providers Care [facility] Receiving Clerk Name Role Phone Bayron Camp MD Primary Care Provider Allergies No known active allergies Medications omeprazole (PriLOSEC) [address] Santo ons:Gastroesoph ageal reflux disease without esophagitis TAKE 1 CAPSULE BY MOUTH TWICE A DAY 180 capsule 4 Active EPINEPHrine (EpiPen 2-Horacio) 0.3 mg/0.3 mL injection USE DIRECTED FOR ANAPHYLAXIS 4 Active nitrofurantoin (MACRODANTIN) 100 mg capsule Take 1 Capsule by mouth as needed. Active oxyBUTYnin XL (DITROPAN-XL) 10 mg 24 hr tablet Take 10 mg by mouth daily. Active cetirizine (ZyrTEC) 10 mg tablet TAKE 1 TABLET BY MOUTH EVERY DAY 90 tablet 1 5 Active citalopram (CeleXA) 40 mg tablet Take 1 tablet (40 mg total) by mouth 1 (one) time each day. 90 each 1 5 Active cholecalciferol (VITAMIN D-3) 50 mcg (2,000 unit) tablet Take 1 tablet (2,000 Units total) by mouth 1 (one) time each day. 90 tablet 1 5 Active cholecalciferol (VITAMIN D-3) 50 mcg (2,000 unit) tablet Take 1 tablet (2,000 Units total) by mouth 1 (one) time each day. 4 025 Discontin ued(Reord er) eszopiclone (LUNESTA) 1 mg tablet Take 1 tablet (1 mg total) by mouth at bedtime as needed. Max Daily Amount: 1 mg 4 025 Discontin ued(Thera py completed ) citalopram (CeleXA) 40 mg tablet Take 1 tablet (40 mg total) by mouth 1 (one) time each day. 90 each 1 5 025 Discontin ued(Reord er) Active Problems Problem Noted Date Diagnosed Date Mixed hyperlipidemia 10/16/2023 Dysplasia of cervix, high grade LESLEY 2 12/10/2021 Overview (03/05/2024): LEEP 09/2021 Diastasis of rectus abdominis 03/03/2017 Anxiety disorder 11/02/2014 Depression 11/02/2014 Easy bruisability 11/02/2014 Overview (03/05/2024): Seen with [facility] configuration management administrator in past and no cause IBS (irritable bowel syndrome) 11/02/2014 Overview (03/05/2024): Constipation: Seen with Dr. Michaels with negative colonsocopy 04/28 Overactive bladder 11/02/2014 Overview (03/05/2024): W/ some incontinence, Urology, Postcoital urinary tract infection 11/02/2014 Overview (03/05/2024): Postcoital prophylaxis prescribed Pre-syncope 11/02/2014 Overview (03/05/2024): Seen with neurology and negative EEG and no cause found Encounters Date Type Department Care Team Description 10/19/2024 4:47 PM EDT - 10/19/2024 11:59 PM EDT Hospital Encounter Radiology Department - [address] [phone] Anterior neck pain Discharge Disposition: Home or Self Care 10/18/2024 12:45 PM EDT Office Visit Adult Medicine [address] [phone] Elizabeth Plummer PA Anxiety and depression (Primary Dx); Primary insomnia; Mixed hyperlipidemia; Dysphagia, unspecified type; Anterior neck pain; Vitamin D deficiency; Need for hepatitis C screening test; Screening for HIV (human immunodeficiency virus); Screening for deficiency anemia from Last 3 Months Immunizations Name Administration Dates Next Due Hepatitis [...] and older 04/01/2017,02/26/2017 Measles 01/06/2014 Mumps 01/06/2014 Pfizer SARS-CoV-2 COVID-19, mRNA, LNP-S, preservative free 04/22/2020,04/01/2020 [...] BIOPSY W/ LOOP ELECTRODE EXCISION 09/2021 PROCEDURE: FL CONIZATION CERVIX W/WO D&C RPR ELTRD EXC Medical History Medical History Date Comments Anxiety disorder 11/02/2014 DX:Anxiety diso rder Depression 11/02/2014 DX:Depression Diastasis of rectus abdominis 03/03/2017 DX :Diastasis of rectus abdominis Easy bruisability 11/02/2014 DX:Easy bruisa bility; COMMENT: Seen with [facility] configuration management administrator in past and no cause FHx: breast [...] Answered Alcohol Use Standard Drinks/Week Comments Yes 0 (1 standard drink = 0.6 oz pur e alcohol) Housing Instability Answer Date Recorde d Are you worried that in the next 2 months you may not have stable housing? No 10/18/2024 Food Access & Nutrition Answer Date Rec orded Do you have access to a vari ety of food including fruits and vegetables? Yes 10/18/2024 Access to Healthcare Answer Date Record ed Within the last 3 months, ho w many times did you visit the emergency department for your medical care? 0 10/18/2024 Health Literacy Answer Date Recorded How often do you need to hav e someone help you when you read instructions, pamphlets, or other written material from your doctor or pharmacy? Never 10/18/2024 Caregiver: How often do you need to have someone help you when you read instructions, pamphlets, or other written material from your doctor or pharmacy? Not on file 10/18/2024 Financial Risk Answer Date Recorded How hard is it for you to pa y for the very basics like food, housing, medical care, and air conditioning / heating? Not very hard 10/18/2024 Transportation Answer Date Recorded Has the lack of transportati on kept you from meetings, work, or from getting things needed for daily living? No Has the lack of transportati on kept you from medical appointments or from getting medications? No 10/18/2024 Social Isolation Answer Date Recorded How often do you feel lonely or isolated from th ose around you? Never 10/18/2024 Food Risk Answer Date Recorded Within the past 12 months we worried whether our food would run out before we got money to buy more. Never true 10/18/2024 Within the past 12 months th e food we bought just didn't last and we didn't have money to get more. Never true 10/18/2024 Dependent Care Answer Date Recorded Do you need help finding or paying for care for your loved ones. For example, childcare attendant or elderly care for an older adult? No 10/18/2024 Education Answer Date Recorded Do you think completing more education or training, like finishing a GED, going to college, or learning a trade, would be helpful for you? No 10/18/2024 Employment and Income Answer Date Recor ded During the last four weeks, have you been actively looking for work? No 10/18/2024 Living Situation Answer Date Recorded What is your living situation? 0 10/18/2024 Comments No Sex and Gender Information Value Date Recorded Sex Assigned at Not on file Legal Sex Female 3:33 PM EST Gender Identity Not on file Sexual Orientation Not on file Travel History Travel Start Travel End [place] 10/04/2024 10/09/2024 Obstetrics History Last Filed Vital Signs Vital Sign Reading Time Taken Comments Blood Pressure 96/60 10/18/2024 12:51 PM EDT Pulse 66 10/18/2024 12:51 PM EDT Temperature 36.4 C (97.6 F) 10/18/2024 12:51 PM EDT Respiratory Rate 15 10/18/2024 12:51 PM EDT Oxygen Saturation 97% 10/18/2024 12:51 PM EDT Inhaled Oxygen Concentration - - Weight 77 kg (169 lb 12.8 oz) 10/18/2024 12:51 P M EDT Height 177.8 cm (5' 10 ) 10/18/2024 12:51 PM EDT Body Mass Index 24.36 10/18/2024 12:51 PM EDT Plan of Treatment Health Maintenance Due Date Last Done Comments Breast Cancer Screening 1982 Hepatitis B Vaccines (1 of 3 - 19+ 3-dose series) 2001 04/01/2017, 03/03/2017 HIV Screening 02/23/2022 Hepatitis C Screening 02/23/2022 Cervical Cancer Screening: Pap Smear 01/27/2023 01/28/2020 COVID-19 Vaccine ( season) 2023 04/07/2021, 04/22/2020, 04/01/2020 Influenza Vaccine (#1) 2024 , 11/15/2021, 01/20/2020, Additional history exists Social Influencers of Health Screening 10/18/2025 10/18/2024 Cholesterol Screening (Lipid Panel) 10/14/2028 10/15/2023, 10/15/2023 DTaP,Tdap,and Td Vaccines (3 - Td or Tdap) 01/24/2030 01/25/2020, 12/15/2016 MMR Vaccines Aged Out 04/01/2017, 02/26/2017 No lo nger eligible based on patient's age to complete this topic Depression Screening Completed 10/18/2024, 12/30/19 24 HIB Vaccines Aged Out No longer eligi [...] age to complete this topic Meningococcal B Vaccine Aged Out No l onger eligible based on patient's age to complete this topic Pneumococcal Vaccine: Pediatrics (0 to 5 Years) and At-Risk Patients (6 to 49 Years) Aged Out No longer eligible based on patient's age to complete this topic RSV Immunization Patients Under 20 months Aged Out No longer eligible based on patient's age to complete this topic Varicella Vaccines Aged Out No longer eligible based on patient's age to complete this topic Procedures Procedure Name Priority Date/Time Associated Diagnosis Comments US HEAD NECK SOFT TISSUE Routine 10/19/2024 5:05 PM EDT Anterior neck pain DEPRESSION SCREENING Routine 12/30/2023 LIPID PANEL Routine 10/15/2023 HM PAP SMEAR Routine 01/28/2020 from Last 3 Months or Most Recently Relevant to Health Maintenance Results * US Head Neck Soft Tissue (10/19/2024 5:05 PM EDT) Anatomical Region Laterality Modality Head and Neck Ultrasound 10/19/2024 5:27 PM EDT Impressions 10/19/2024 5:29 PM EDT No thyromegaly or thyroid nodule. POS - [id number] -------- FINAL REPORT -------- Dictated By: Steph Bower Dictated Date: 10/19/2024 17:27 ET Assigned Physician: Steph Bower Reviewed and Electronically Signed By: Steph Bower Signed Date: 10/19/2024 17:29 ET Workstation ID: [id number] Transcribed By: Self Edit Transcribed Date: 10/19/2024 17:27 ET Narrative 10/19/2024 5:29 PM EDT EXAM: Thyroid ultrasound HISTORY: Dysphagia. Anterior neck pain. COMPARISON: None FINDINGS: Thyroid gland is not enlarged: right lobe measures 4.8 x 0.9 x 1.4 cm, left lobe measures 3.9 x 0.8 x 1.5 cm, and the isthmus measures 0.2 cm in thickness. Thyroid parenchyma is homogeneous without hypervascularity on color Doppler. No discrete thyroid nodule identified. Procedure Note Steph Bower MD - 10/19/2024 EXAM: Thyroid ultrasound HISTORY: Dysphagia. Anterior neck pain. COMPARISON: None FINDINGS: Thyroid gland is not enlarged: right lobe measures 4.8 x 0.9 x 1.4 cm,left lobe measures 3.9 x 0.8 x 1.5 cm, and the isthmus measures 0.2 cm inthickness. Thyroid parenchyma is homogeneous without hypervascularity oncolor Doppler. No discrete thyroid nodule identified. IMPRESSION: No thyromegaly or thyroid nodule. POS - [id number] -------- FINAL REPORT -------- Dictated By: Steph Bower Dictated Date: 10/19/2024 17:27 ET Assigned Physician: Steph Bower Reviewed and Electronically Signed By: Steph Bower Signed Date: 10/19/2024 17:29 ET Workstation ID: [id number] Transcribed By: Self Edit Transcribed Date: 10/19/2024 17:27 ET Elizabeth Elian BLANCO IMG US PROCEDURES Final Result * Depression Screening (12/30/2023) Depression Screening Abstracted Result [facility] Historical Provider HEALTH MAINTENANCE Final Result * (ABNORMAL) Lipid panel (10/15/2023) Pathologist [facility] LDL/HDL Ratio 4 0 - 4 Triglycerides 214(A) 0 - 150 mg/dL Cholesterol 217(A) 0 - 200 mg/dL HDL 62 >=40 mg/dL LDL Cholesterol 113(A) 0 - 100 mg/dL Blood Venous blood specimen / Unknown Result [facility] Historical Provider LAB BLOOD ORDERABLES Kimberlee l Result * Pap Smear (01/28/2020) Pathologist [facility] Pap smear No interpretation , Abstracted Result [facility] Historical Provider HEALTH MAINTENANCE Final Result from Last 3 Months or Most Recently Relevant to Health Maintenance Insurance [facility] Care Teams Hospital Receiving Clerk Relationship Specialty Start Date End Date Bayron Camp MD [address] [place] [address] PCP - General 01/14/23
== END 2024-10-27 09:37 | disposition home or self-care (01) ==
PROVIDERS: Emergency Provider Emergency Medicine; PCP Physician Assistant
DX: R60.0 Localized edema (principal); R06.02 Shortness of breath; M79.604 Pain in right leg; Z79.899 Other long term (current) drug therapy
CPT/HCPCS: 36415; 71046; 80053; 85025; 85379; 85610; 93005; 93971; 99284

== ENCOUNTER → 2024-10-27 08:29 | Outpatient (BNV) | payer OTHER, SELFPAY | PROVIDERS: Emergency Provider Emergency Medicine; PCP Physician Assistant; Visit Provider Radiology Diagnostic Radiology | DX: R22.41 Localized swelling, mass and lump, right lower limb (principal); R05.9 Cough, unspecified | CPT/HCPCS: 71046; 93971 ==

== ENCOUNTER → 2024-10-27 09:08 | Outpatient (BNV) | payer OTHER, SELFPAY | PROVIDERS: Emergency Provider Emergency Medicine; PCP Physician Assistant; Visit Provider Internal Medicine Cardiovascular Disease | DX: R06.02 Shortness of breath (principal) | CPT/HCPCS: 93010 ==

== ENCOUNTER 2025-03-12 07:25 | Outpatient (REF) | payer OTHER, SELFPAY ==
--- OUTSIDE RECORDS SUMMARY | 2024-04-07 08:40 | XMS_ITS ---
Author Organization [facility], [facility] Address [address] [facility] [address] [place] [address] Care Team Providers Care Dewer Name Role Phone Ngozi Hanson Primary Care Provider [phone] NGOZI HANSON Unavailable Unavailable Nacho Butler Unavailable [phone] REASON FOR VISIT 4-5 month f/u Encounters Encounter Location Date Provider Diagnosis [address] [place] [address] 04/07/2024 Nacho Butler Plan Of Treatment No Information Progress Notes * HAWKINS NICOLE SaadiakristynDOB:07/1980 (44 yo F)Acc No.[id number]:04/07/2024 Progress Notes Patient: Genie TORRES Provider: Darcy Butler PA-C :1980 A ge:43 Y S ex:Female Date:04/07/2024 Address:[address] [place], [place] [id number] Pcp:Ngozi Hanson Subjective: * Chief Complaints: * 1 . 4-5 month f/u. * Medical History: Objective: * Vitals: Assessment: Plan: * Treatment: * * Electronic signature of BELLA Harris rd on 03/12/2025 at 07:28 AM EST Sign off status: Pending * Provider: Darcy Butler PA-C Date: 0 04/07/2024 Generated for Ashley ng/Faprakashg/eTransmitting on: 1 05/13/2024 07:28 AM EST
--- NOTE | ~2025-03-12 | MM_ITS ---
EXAMINATION: MM SCREENING DIGITAL BREAST TOMOSYNTHESIS, BILATERAL CLINICAL INFORMATION: Screening. Asymptomatic. COMPARISON: Mammography: Comparison is made with available priors TECHNIQUE: Digital breast mammography with tomosynthesis is performed in both the craniocaudal and mediolateral oblique views along with computer-aided detection (CAD). FINDINGS: The breasts are heterogeneously dense, which may obscure small masses. RIGHT: Focal asymmetry upper outer breast middle to posterior depth. No suspicious calcifications or other abnormal findings. Left: Focal asymmetry retroareolar region anterior to middle depth. No suspicious calcifications or other abnormal findings. MM/MM tomosynthesis screening BI IMPRESSION: Additional imaging is recommended ASSESSMENT: BI-RADS Category 0: Incomplete - Need additional Imaging Evaluation RECOMMENDATION: 1. Additional views of the bilateral breasts. 2. Targeted ultrasound if warranted after review of the additional views. 3. Radiology department staff will contact the patient for additional imaging. Additional Imaging required Electronically signed by: Karo Cruz DO 03/14/2025 05:50 PM DAVID
--- OUTSIDE RECORDS SUMMARY | 2025-03-12 07:29 | XMS_ITS | Clinical Summary ---
Author Organization [facility] Address [address] [place] [phone] Phone Care Team Providers Care Fixing Machine Operator Name Role Phone Bayron Camp MD Primary [...] HEPATITIS C SCREENING 2000 HIV ONE-TIME SCREENING (18-65 YEARS) 2000 PAP SMEAR 06/20/2003 MAMMOGRAM 2022 INFLUENZA VACCINE (#1) 2024 , 03/15/2019, 12/31/2017, Additional history exists COVID-19 VACCINE (2024- season) 2024 04/07/2021, 04/22/2020, 04/01/2020 Adult Td,Tdap Booster 01/24/2030 01/25/2020, 017 SMOKING STATUS SCREENING (Once After 26 Yrs) Completed 10/29/2023 HEPATITIS A [...] (0-49 years) Aged Out No longer eligible based on patient's age to complete this topic Medical Devices Not on file Insurance [address] [place], [place] [address] [place] [address] HMO Care Teams Fixing Machine Operator Relationship Specialty Start Date End Date Bayron Camp MD [address] [place] [address] PCP - General Internal Medicine 10/29/23 Additional Source Comments The information contained in this document represents components of the legal health record. It is not the complete legal health record.[facility]
--- OUTSIDE RECORDS SUMMARY | 2025-03-12 07:29 | XMS_ITS | Patient Health Record ---
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.0) Active confirmed Problem Insomnia (235086590) Insomnia (G47.00) Active confirmed Problem Asthma (057837087) Asthma (J45.909) Active confirmed Problem Irritable bowel syndrome (64207754) IBS (irritable bowel syndrome) (K58.9) Active confirmed Problem Hyperlipidemia (00930355) Hyperlipidemia (E78.5) Active confirmed Problem Allergic rhinitis (28436869) Allergic rhinitis (J30.9) Active confirmed Problem Migraine variant with headache (disorder) (551825305) Migraine headache (G43.909) Active confirmed Problem Hypersomnia (22154932) Hypersomnia (G47.10) Active confirmed Plan Of Treatment No Information Insurance Providers Payer Name Payer Address Payer Phone Subscriber Number Group Number Insured Name Patient Relationship to Insured Coverage Start Date Coverage End Date [facility] [address] [place] [address] [id number] Genie Lancaster Self - patient is the [...]
--- OUTSIDE RECORDS SUMMARY | 2025-03-12 07:29 | XMS_ITS | Data Portability ---
Author Organization [place] [facility], Allergy Address [address] [place] [id number] Assessment Encounter Date Assessment Date Assessment LastModified by Organization Details LastModified Time 10/22/2023 10/22/2023 Administered By: CHAZ Gomez Use of Antihistamines: Yes If yes: Vial Test Change in medications: No If yes Increase in asthma symptoms If yes, inhaler use: Reaction to last injections: No If yes: Allergy Symptoms: Other: Missed 1 week Dose Notes: [email or web address] Not available 10/22/2023 12:08:12 10/29/2023 10/29/2023 Administered By: Debo Seaman Use of Antihistamines: Yes If yes: Daily Vial Test Change in medications: No If yes Increase in asthma symptoms If yes, inhaler use: Reaction to last injections: No If yes: Allergy Symptoms: Other: Missed 1 week Dose Notes: [email or web address] Not available 10/29/2023 11:24:49 11/05/2023 11/05/2023 Administered By: David Cuello RN Use of Antihistamines: Yes If yes: Vial Test Change in medications: No If yes Increase in asthma symptoms No If yes, inhaler use: Reaction to last injections: No If yes: Allergy Symptoms: Other: Missed 1 week Dose Notes: [email or web address] Not available 11/05/2023 11:31:15 11/12/2023 11/12/2023 Administered By: David Cuello RN Use of Antihistamines: Yes If yes: Vial Test Change in medications: No If yes Increase in asthma symptoms If yes, inhaler use: Reaction to last injections: No If yes: Allergy Symptoms: Other: Missed 1 week Dose Notes: [email or web address] Not available 11/12/2023 14:12:56 11/26/2023 11/26/2023 Administered By: Debo Seaman Use of Antihistamines: Yes If yes: Vial Test Change in medications: No If yes Increase in asthma symptoms If yes, inhaler use: Reaction to last injections: No If yes: Allergy Symptoms: Other: Missed 1 week Yes Dose Repeated Notes: [email or web address] Not available 11/26/2023 12:03:37 Plan of Treatment Reminders Order Date Submit Date Provider Last Modified By Organization Details Last Modified Time Details Appointments None record ed. Lab None record ed. Referral None record ed. Procedures None record ed. Surgeries None record ed. Imaging None record ed. Medication Orders None record ed. Patient TargetsNo targets recorded. Patient InstructionsNo instructions recorded. Reason for Referral None Reported. Problems Name Problem SNOMED Code Status Onset Date Resolution Date Notes Provider Name and Address Organization Details Recorded Time Mild intermitt ent asthma 792819616 Active 2019 Mild intermitte nt asthma, uncomplica ailyn; Note: Date Diagnosed: 08/10/2019 2:03 PM (J45.20) Not Available [facility] 4 02:15:30 Nasal congestio n [id number] Active 2019 Nasal congestion ; Note: Date Diagnosed: 08/10/2019 2:03 PM (R09.81) Not Available [facility] 4 02:16:13 Allergic rhinitis 90541992 Active 2020 Allergic rhinitis: Due to other allergen; Note: Date Diagnosed: 10/04/2020 4:55 PM (477.8) Allergic rhinitis: Due to other allergen; Note: Date Diagnosed: 09/27/2020 4:53 PM (477.8) ; Start Date : 09/27/2020 Allergic rhinitis: Due to other allergen; Note: Date Diagnosed: 09/13/2020 4:58 PM (477.8) ; Start Date : 09/13/2020 Allergic rhinitis: Due to other allergen; Note: Date Diagnosed: 09/04/2020 9:54 AM (477.8) ; Start Date : 09/04/2020 Other allergic rhinitis; Note: Date Diagnosed: 08/10/2019 2:03 PM (J30.89) ; Start Date : 08/10/2019 Not Available [facility] 4 02:14:08 Perennial allergic rhinitis [id number] Active 2023 MASON RICE RMA [address], [place], [address] , [facility] - [facility] [place] 09:07:14 Problem Notes None recorded. Procedures Surgical History Date Name Laterality Status Provider Name and Address Organization Details Recorded Time 11/26/19 24 Allergy Immunotherapy Injections completed CHAZ ZAPATA [address], [place], [address], [facility] - [facility] [place] 11/26/2023 12:04:04 11/12/19 24 Allergy Immunotherapy Injections completed CHAZ ZAPATA [address], [place], [address], [facility] - [facility] 11/12/2023 14:12:34 11/05/19 24 Allergy Immunotherapy Injections completed DAVID CUELLO RN [address], [place], [address], [facility] - [facility] 11/05/2023 11:31:32 10/29/19 24 Allergy Immunotherapy Injections completed CHAZ ZAPATA [address] [place] [address], [phone], [facility] - [facility] 10/29/2023 11:24:44 10/22/19 24 Allergy Immunotherapy Injections completed CHAZ GOMEZ [address], [place], [address], [facility] - [facility] 10/22/2023 12:08:05 10/15/19 24 Allergy Immunotherapy Injections completed MASON RICE RMA [address], [place], [address], [facility] - [facility] 10/15/2023 13:23:47 10/06/19 24 Allergy Immunotherapy Injections completed MASON RICE RMA [address], [place], [address], [facility] - [facility] 10/06/2023 09:22:56 Imaging Results None recorded. Procedure Notes None recorded. Medical Equipment None Reported. Medications Name Sig Start Date Stop Date Status Note LastModified by Organization Details LastModified Time amoxicill in 500 mg capsule TAKE 2 CAPSULES BY MOUTH TWICE A DAY active Not Available Not Available No t Available nitrofura ntoin macrocrys shannon 50 mg capsule 12/28 completed Medicati on ID: [id number] D uration Value: 30 Brand Name: nitrofur antoin macrocry stal Sen d Method: E-Prescr ibed Sub s Allowed: subs OK Speci al Instruct ion: TAKE 1 CAPSULE BY MOUTH ONCE NEEDED PRIOR TO INTERCOU RSE Medi cationGe nericNam e: nitrofur antoin macrocry stal Not Available Not Available Not Available doxycycli ne hyclate 100 mg capsule TAKE 1 CAPSULE BY MOUTH TWICE A DAY active Not Available Not Available No t Available cetirizin e 10 mg tablet TAKE 1 TABLET BY MOUTH EVERY DAY active Not Available Not Available No t Available oxybutyni n chloride ER 10 mg tablet,ex tended release 24 hr TAKE 1 TABLET BY MOUTH EVERY DAY active Not Available Not Available No t Available clarithro mycin 500 mg tablet TAKE 1 TABLET BY MOUTH TWICE A DAY active Not Available Not Available No t Available clonazepa m 0.5 mg tablet active Medicati on ID: [id number] B rand Name: clonazep am Send Method: E-Prescr ibed Sub s Allowed: subs OK Medic ationGen ericName : clonazep am Not Available Not Available Not Available clonazepa m 1 mg tablet TAKE 1 TABLET (1 MG) ORALLY BEDTIME NEEDED FOR INSOMNIA ADMINIST ER 30 MINUTES BEFORE BEDTIME active Not Available Not Available No t Available metronida zole 500 mg tablet TAKE 1 TABLET BY MOUTH THREE TIMES A DAY active Not Available Not Available No t Available omeprazol e 40 mg capsule,d elayed release TAKE 1 CAPSULE BY MOUTH TWICE A DAY active Not Available Not Available No t Available citalopra m 20 mg tablet TAKE 1 TABLET BY MOUTH EVERY DAY FOR 30 DAYS active Not Available Not Available No t Available trazodone 100 mg tablet TAKE 1 TABLET BY MOUTH EVERY DAY AT BEDTIME FOR 30 DAYS active Not Available Not Available No t Available paroxetin e 20 mg tablet 06/17 completed Medicati on ID: [id number] B rand Name: paroxeti ne HCl Send Method: E-Prescr ibed Sub s Allowed: subs OK Medic ationGen ericName : paroxeti ne HCl Not Available Not Available Not Available omeprazol e 20 mg capsule,d elayed release TAKE 1 CAPSULE BY MOUTH TWICE A DAY active Not Available Not Available No t Available montel[address] st 10 mg tablet TAKE 1 TABLET BY MOUTH EVERYDAY AT BEDTIME active Not Available Not Available No t Available zolpidem 5 mg tablet active Medicati on ID: [id number] B rand Name: zolpidem Send Method: E-Prescr ibed Sub s Allowed: subs OK Medic ationGen ericName : zolpidem Not Available Not Available Not Available epinephri ne 0.3 mg/0.3 mL injection , auto-inje ctor USE DIRECTED FOR ANAPHYLA XIS active Not Available Not Available No t Available zolpidem 10 mg tablet active Medicati on ID: [id number] B rand Name: zolpidem Send Method: E-Prescr ibed Sub s Allowed: subs OK Medic ationGen ericName : zolpidem Medicat ion ID: [id number] B rand Name: zolpidem Send Method: E-Prescr ibed Sub s Allowed: subs OK Medic ationGen ericName : zolpidem Not Available Not Available Not Available fluticaso ne propionat e 50 mcg/actua tion nasal spray,serjio pension 2 puff into both nostrils 2019 active Medicati on ID: [id number] D uration Value: 30 Prescri bed By Name: Deidre Brunson nd Name: fluticas one propiona te Send Method: E-Prescr ibed Sub s Allowed: subs OK Medic ationGen ericName : fluticas one propiona te Not Available Not Available Not Available Celexa 40 mg tablet 12/28 completed Medicati on ID: [id number] B rand Name: Celexa S end Method: E-Prescr ibed Sub s Allowed: subs OK Medic ationGen ericName : Celexa Not Available Not Available Not Available cholecalc iferol (vitamin D3) 25 mcg (1,000 unit) tablet TAKE 1 TABLET BY MOUTH EVERY DAY OTC NOT COVERED' active Not Available Not Available No t Available Vitamin D3 50 mcg (2,000 unit) tablet TAKE 1 TABLET BY MOUTH EVERY DAY active Not Available Not Available No t Available GaviLyte- G 236 gram-22.7 4 gram-6.74 gram-5.86 gram oral solution TAKE 8 OUNCE BY MOUTH DIRECTED . DRINK A GLASS EVERY 10-15 MINUTES active Not Available Not Available No t Available Linzess 290 mcg capsule active Medicati on ID: [id number] B rand Name: Tatum Send Method: E-Prescr ibed Sub s Allowed: subs OK Medic ationGen ericName : Tatum Not Available Not Available Not Available Vitals None Recorded Social History None recorded. Functional Status None recorded. Mental Status None recorded. Family History Nothing Reported. Medical History No medical history recorded. Gynecological HistoryNo gynecological history recorded. Obstetrics History GPAL:G 0 P 0 0 0 0 Past Encounters Encounter ID Performer Location Encounter Start Date Encounter Closed Date Diagnosis/Indication Diagnosis SNOMED-CT Code Diagnosis ICD10 Code Diagnosis IMO Codes Diagnosis Note [id number] [facility] [address] [place] [address] [address] [place] [address] 10/06/2023 09:00:20 10/13/2023 12:03:25 Perennial allergic rhinitis 952594101 J30.89 [id number] [facility] [address] [place] [address] [address] [place] [address] 10/15/2023 13:19:45 10/15/2023 15:02:35 Perennial allergic rhinitis 605357749 J30.89 [id number] [facility] [address] [place] [address] [address] [place] [address] 10/22/2023 11:44:42 10/22/2023 13:32:30 Perennial allergic rhinitis 706676778 J30.89 [id number] DEBO SEAMAN [facility] Allergy [address] [place] [address] [address] [place] [address] 10/29/2023 11:12:53 10/29/2023 13:43:58 Perennial allergic rhinitis 621536903 J30.89 [id number] DAVDI CUELLO RN Allergy [address] [place] [address] [address] [place] [address] 11/05/2023 10:58:38 11/05/2023 11:31:53 Perennial allergic rhinitis 105854769 J30.89 [id number] DAVID CUELLO RN Allergy [address] [place] [address] [address] [place] [address] 11/12/2023 13:05:54 11/12/2023 14:15:07 Perennial allergic rhinitis 940183389 J30.89 [id number] CHAZ ZAPATA [facility] [address] [place] [address] [address] [place] [address] 11/26/2023 11:45:11 11/26/2023 14:23:44 Perennial allergic rhinitis 561015361 J30.89 Health Concerns Section Related Observation LastModified by Organization Detai ls LastModified Time None Recorded Concern Status LastModified by Organization Details LastModified Time None Recorded Advance Directives Directive None Recorded Payers Insurance Date Sequence Insurance Name Policy Number Policy Cowan Covered Member ID Cowan Member ID Guarantor Name 11/26/2023 1 [facility] [id number] Genie Pham [id number] Genie Levi OBGyn Episode No OBEpisode recorded.
--- OUTSIDE RECORDS SUMMARY | 2025-03-12 07:29 | XMS_ITS | Clinical Summary ---
Author Organization [facility] Address [address] [place] [address] Care Team Providers Care Pcas Name Role Phone Daniel Freeman MD Primary Care Provider [phone] Allergies Active Allergy Reactions Criticality Noted Date [...] 10/23/2023 12:12 PM EDT Plan of Treatment Health Maintenance Due Date Last Done Comments Cervical Cancer Screening 1982 HIV Screening 1982 HPV and Pap Smear 1982 Hepatitis C Screening 1982 Pap Smear 1982 Varicella Vaccines (1 of 2 - 13+ 2-dose series) 06/20/1995 Hepatitis B Vaccines (1 of 3 - 19+ 3-dose series) 2001 04/01/2017, 03/03/2017 Pneumococcal Vaccine: Pediat toñito (0-5 Years) and At-Risk Patients (6-50 Years) (1 of 2 - PCV) 2001 Mammogram 2022 Alcohol/Substance Use Screening 03/17/2024 Depression Screening and Follow-Up 03/17/2024 Social Drivers of Health Kassie ual Screening 03/17/2024 Influenza Vaccine (#1) 2024 3, 11/15/2021, 01/20/2020, Additional history exists COVID-19 Vaccine ( - 2024-2 6 season) 2024 04/07/2021, 04/22/2020, 04/01/2020 DTaP,Tdap,and Td Vaccines (3 - Td or Tdap) 01/24/2030 01/25/2020, 12/15/2016 Insurance [facility] Care Teams Pcas Relationship Specialty Start Date End Date Daniel Freeman MD [address] [place] [id number] PCP - General Internal Medicine 05/07/23
--- OUTSIDE RECORDS SUMMARY | 2025-03-12 07:29 | XMS_ITS | Clinical Summary ---
Author Organization [facility] [address] [facility] Address [address] [place] [address] Phone Care Team Providers Care Software Release Manager Name Role Phone Bayron Camp MD Primary Care Provider Allergies No known active allergies Medications omeprazole (PriLOSEC) [address] Fenton ns:Gastroesophag eal reflux disease without esophagitis TAKE 1 CAPSULE [...] each day. 90 tablet 1 5 Active cyclobenzaprine (FLEXERIL) 5 mg tablet Take 1 tablet (5 mg total) by mouth 3 (three) times a day if needed for muscle spasms. 30 tablet 1 Active Active Problems Problem Noted Date Diagnosed Date Mixed hyperlipidemia 10/16/2023 Dysplasia of cervix, high grade LESLEY 2 12/10/2021 Overview (03/05/2024): LEEP 09/2021 Diastasis of rectus abdominis 03/03/2017 Anxiety disorder 11/02/2014 Depression 11/02/2014 Easy bruisability 11/02/2014 Overview (03/05/2024): Seen with [facility] solar manager in past and no cause IBS (irritable bowel syndrome) 11/02/2014 Overview (03/05/2024): Constipation: Seen with Dr. Michaels with negative colonsocopy 04/28 Overactive bladder 11/02/2014 Overview (03/05/2024): W/ some incontinence, Urology, Postcoital urinary tract infection 11/02/2014 Overview (03/05/2024): Postcoital prophylaxis prescribed Pre-syncope 11/02/2014 Overview (03/05/2024): Seen with neurology and negative EEG and no cause found Encounters Date Type Department Care Team Description 12/22/2024 Results Follow-Up Adult Medicine [address] [phone] Bayron Camp MD 12/21/2024 8:18 AM EDT - 12/21/2024 11:59 PM EDT Hospital Encounter [address] [phone] Neck muscle spasm Discharge Disposition: Home or Self Care 12/21/2024 Results Follow-Up Adult Medicine [address] [phone] Elziabeth Plummer PA 12/21/2024 Telephone Adult Medicine [address] [phone] Elizabeth Plummer PA 12/14/2024 2:00 PM EDT Office Visit Adult Medicine [address] [phone] Elizabeth Plummer PA Neck muscle spasm (Primary Dx); Right leg swelling from Last 3 Months Immunizations Immunization Administration Dates Next Due Hepatitis B Pediatric [...] BIOPSY W/ LOOP ELECTRODE EXCISION 09/2021 PROCEDURE: [place] CONIZATION CERVIX W/WO D&C RPR ELTRD EXC Medical History Medical History Date Comments Anxiety disorder 11/02/2014 DX:Anxiety diso rder Depression 11/02/2014 DX:Depression Diastasis of rectus abdominis 03/03/2017 DX :Diastasis of rectus abdominis Easy bruisability 11/02/2014 DX:Easy bruisa bility; COMMENT: Seen with [facility] solar manager in past and no cause FHx: breast [...] care for your loved ones. For example, child day care teacher or elderly care for an older adult? [...] Date Recorded What is your living situation? Unrecognized valu e 10/18/2024 Comments No Sex and Gender Information Value Date Recorded Sex Assigned at Not on file Legal Sex Female 3:33 PM EST Gender Identity Not on file Sexual Orientation Not on file Last Filed Vital Signs Vital Sign Reading Time Taken Comments Blood Pressure 125/85 12/14/2024 2:22 PM EDT Pulse 87 12/14/2024 2:22 PM EDT Temperature 35.7 C (96.3 F) 12/14/2024 2:22 PM EDT Respiratory Rate 16 12/14/2024 2:22 PM EDT Oxygen Saturation 95% 12/14/2024 2:22 PM EDT Inhaled Oxygen Concentration - - Weight 78.2 kg (172 lb 6.4 oz) 12/14/2024 2:22 P M EDT Height 175.3 cm (5' 9 ) 12/14/2024 2:22 PM EDT Body Mass Index 25.46 12/14/2024 2:22 PM EDT Plan of Treatment Health Maintenance Due Date Last Done Comments Breast Cancer Screening 1982 Hepatitis B Vaccines (1 of 3 - 19+ 3-dose series) 2001 04/01/2017, 03/03/2017 Pneumococcal Vaccine: Pediatrics (0 to 5 Years) and At-Risk Patients (6 to 49 Years) (1 of 2 - PCV) 2001 HPV Vaccines (1 - 3-dose SCDM series) 2009 Cervical Cancer Screening: Pap Smear 01/27/2023 01/28/2020 COVID-19 Vaccine ( season) 2024 04/07/2021, 04/22/2020, 04/01/2020 Influenza Vaccine (#1) 2024 3, 11/15/2021, 01/20/2020, Additional history exists Social Influencers of Health Screening 10/18/2025 10/18/2024 Cholesterol Screening (Lipid Panel) 12/21/2029 12/21/2024, 10/15/2023, 10/15/2023 DTaP,Tdap,and Td Vaccines (3 - Td or Tdap) 01/24/2030 01/25/2020, 12/15/2016 RSV Immunization Adult Patients (1 - 1-dose 75+ series) 2057 MMR Vaccines Aged Out 04/01/2017, 02/26/2017 No lo nger eligible based on patient's age to complete this topic Depression Screening Completed 10/18/2024, 12/30/19 HIV Screening Completed 12/21/2024 Hepatitis C Screening Completed 12/21/2024 HIB Vaccines Aged Out No longer eligi [...] Procedure Name Priority Date/Time Associated Diagnosis Comments XR CERVICAL SPINE 4-5 VIEWS Routine 12/21/2024 8:24 AM EDT Neck muscle spasm CBC WITH AUTO DIFFERENTIAL Routine 12/21/2024 8:08 AM EDT Screening for deficiency anemia COMPREHENSIVE METABOLIC PANEL Routine 12/21/2024 8:08 AM EDT Mixed hyperlipidemia LIPID PANEL WITH REFLEX TO DIRECT LDL Routine 12/21/2024 8:08 AM EDT Mixed hyperlipidemia VITAMIN D 25 HYDROXY Routine 12/21/2024 8:08 AM EDT Vitamin D deficiency CBC AND DIFFERENTIAL Routine 12/21/2024 8:08 AM EDT Screening for deficiency anemia HIV 1, 2 ANTIBODY, P24 ANTIGEN WITH REFLEX TO DIFFERENTIATION Routine 12/21/2024 8:08 AM EDT Screening for HIV (human immunodeficiency virus) HEPATITIS C ANTIBODY Routine 12/21/2024 8:08 AM EDT Need for hepatitis C screening test HM DEPRESSION SCREENING Routine 12/30/2023 HM PAP SMEAR Routine 01/28/2020 from Last 3 Months or Most Recently Relevant to Health Maintenance Results * XR Cervical Spine 4-5 Views (12/21/2024 8:24 AM EDT) Anatomical Region Laterality Modality Spine, C-spine Radiographic Joleen ging 12/21/2024 9:35 AM EDT Impressions 12/21/2024 10:10 AM EDT Normal study. -------- FINAL REPORT -------- Dictated By: Amy Delvalle Dictated Date: 12/21/2024 09:35 ET Assigned Physician: Amy Delvalle Reviewed and Electronically Signed By: Amy Delvalle Signed Date: 12/21/2024 10:10 ET Workstation ID: [id number] Transcribed By: Self Edit Transcribed Date: 12/21/2024 09:35 ET Narrative 12/21/2024 10:10 AM EDT CERVICAL SPINE, 4 VIEWS HISTORY: Back spasms. FINDINGS: There is normal alignment of the cervical spine. No fracture or dislocation is seen. The paravertebral soft tissues are unremarkable. No degenerative changes are seen. Procedure Note Amy Delvalle MD - 12/21/2024 CERVICAL SPINE, 4 VIEWS HISTORY: Back spasms. FINDINGS: There is normal alignment of the cervical spine. No fracture ordislocation is seen. The paravertebral soft tissues are unremarkable. Nodegenerative changes are seen. IMPRESSION: Normal study. -------- FINAL REPORT -------- Dictated By: Amy Delvalle Dictated Date: 12/21/2024 09:35 ET Assigned Physician: Amy Delvalle Reviewed and Electronically Signed By: Amy Delvalle Signed Date: 12/21/2024 10:10 ET Workstation ID: [id number] Transcribed By: Self Edit Transcribed Date: 12/21/2024 09:35 ET us Elizabeth Elian BLANCO IMG XR PROCEDURES Final Result * Hepatitis C antibody (12/21/2024 8:08 AM EDT) Hepatitis C Antibody Negative Negative LAB CHEMISTRY METHOD 12/21/2024 12:40 PM EDT [facility] Blood Venous blood specimen / Unknown Venipuncture / Unknown 12/21/2024 8:08 AM EDT 12/21/2024 8:08 AM EDT us Elizabeth Elian BLANCO LAB BLOOD ORDERABLES Final Resul t [facility] [address] [place] [address], [place] [phone] * HIV 1,2 antibody, p24 antigen with reflex to differentiation (12/21/2024 8:08 AM EDT) [facility] HIV Combo AB/AG Negative Negative LAB CHEMISTRY METHOD 12/21/2024 12:41 PM EDT [facility] Blood Venous blood specimen / Unknown Venipuncture / Unknown 12/21/2024 8:08 AM EDT 12/21/2024 8:08 AM EDT Narrative [facility] - 12/21/2024 12:41 PM EDT This assay is a 4th generation assay allowing for earlier detection of HIV infection by detecting the presence of the HIV-1 p24 antigen as well as the traditional antibodies to HIV type 1 (including group O) and type 2. Use of a 4th generation assay is the current CDC recommendation for HIV screening. us Elizabeth BLANCO LAB BLOOD ORDERABLES Final Resul t [facility] [address] [place] [address], [place] [phone] * (ABNORMAL) Lipid panel with reflex to direct LDL (12/21/2024 8:08 AM EDT) [facility] Cholesterol 214(H) 0 - 200 mg/dL LAB CHEMISTRY METHOD 12/21/2024 11:23 AM EDT [facility] Triglycerides 79 0 - 150 mg/dL LAB CHEMISTRY METHOD 12/21/2024 11:23 AM EDT [facility] HDL 66 >=40 mg/dL LAB CHEMISTRY METHOD 12/21/2024 11:23 AM EDT [facility] LDL Calculated 132(H) 0 - 100 mg/dL LAB CHEMISTRY METHOD 12/21/2024 11:23 AM EDT [facility] Comment:Estimated LDL Calcul ated using equation: Total cholesterol - HDL cholesterol - (Triglycerides/5) VLDL Cholesterol Cain 15.8 mg/dL LAB CHEMISTRY METHOD 12/21/2024 11:23 AM EDT [facility] Non HDL Chol. (LDL+VLDL) 148(H) <145 mg/dL LAB CHEMISTRY METHOD 12/21/2024 11:23 AM T [facility] Chol/HDL Ratio 3.2 0.0 - 4.4 LAB CHEMISTRY METHOD 12/21/2024 11:23 AM T [facility] Blood Venous blood specimen / Unknown Venipuncture / Unknown 12/21/2024 8:08 AM EDT 12/21/2024 8:08 AM EDT us Elizabeth Elian BLANCO LAB BLOOD ORDERABLES Final Resul t [facility] [address] [place] [address], * CBC auto differential (12/21/2024 8:08 AM EDT) WBC 6.4 4.8 - 10.8 K/mcL LAB HEMETOLOGY METHOD 12/21/2024 11:16 AM [facility] RBC 4.10 3.80 - 4.80 M/mcL LAB HEMETOLOGY METHOD 12/21/2024 11:16 AM [facility] Hemoglobin 12.4 11.5 - 16.0 g/dL LAB HEMETOLOGY METHOD 12/21/2024 11:16 AM [facility] Hematocrit 36.5 35.0 - 47.0 % LAB HEMETOLOGY METHOD 12/21/2024 11:16 AM [facility] MCV 89.7 79.0 - 98.0 FL LAB HEMETOLOGY METHOD 12/21/2024 11:16 AM [facility] MCH 30.5 27.0 - 32.0 pcg LAB HEMETOLOGY METHOD 12/21/2024 11:16 AM [facility] MCHC 34.0 32.0 - 37.0 g/dL LAB HEMETOLOGY METHOD 12/21/2024 11:16 AM [facility] RDW 12.0 11.0 - 15.0 % LAB HEMETOLOGY METHOD 12/21/2024 11:16 AM [facility] Platelets 348 130 - 400 K/mcL LAB HEMETOLOGY METHOD 12/21/2024 11:16 AM [facility] MPV 9.5 7.0 - 11.0 FL LAB HEMETOLOGY METHOD 12/21/2024 11:16 AM [facility] NRBC 0.0 <1.0 % LAB HEMETOLOGY METHOD 12/21/2024 11:16 AM [facility] NRBC Absolute 0.00 <0.10 K/mcL LAB HEMETOLOGY METHOD 12/21/2024 11:16 AM [facility] Neutrophils Relative 56.0 % LAB HEMETOLOGY METHOD 12/21/2024 11:16 AM [facility] Lymphocytes Relative 34.3 % LAB HEMETOLOGY METHOD 12/21/2024 11:16 AM [facility] Monocytes Relative 7.8 % LAB HEMETOLOGY METHOD 12/21/2024 11:16 AM [facility] Eosinophils Relative 0.9 % LAB HEMETOLOGY METHOD 12/21/2024 11:16 AM [facility] Basophils Relative 0.5 % LAB HEMETOLOGY METHOD 12/21/2024 11:16 AM [facility] Immature Granulocytes Relative 0.5 % LAB HEMETOLOGY METHOD 12/21/2024 11:16 AM [facility] Neutrophils Absolute 3.58 1.50 - 7.00 K/mcL LAB HEMETOLOGY METHOD 12/21/2024 11:16 AM EDT [facility] Lymphocytes Absolute 2.19 1.00 - 5.00 K/mcL LAB HEMETOLOGY METHOD 12/21/2024 11:16 AM EDT [facility] Monocytes Absolute 0.50 0.20 - 1.00 K/[facility] LAB HEMETOLOGY METHOD 12/21/2024 11:16 AM EDT [facility] Eosinophils Absolute 0.06 0.00 - 0.50 K/[facility] HEMETOLOGY METHOD 12/21/2024 11:16 AM EDT [facility] Basophils Absolute 0.03 0.00 - 0.20 K/[facility] HEMETOLOGY METHOD 12/21/2024 11:16 AM EDT [facility] Immature Granulocytes Absolute 0.03 0.00 - 0.03 K/[facility] HEMETOLOGY METHOD 12/21/2024 11:16 AM EDT [facility] Blood Venous blood specimen / Unknown Venipuncture / Unknown 12/21/2024 8:08 AM EDT 12/21/2024 8:08 AM EDT us Elizabeth BLANCO LAB BLOOD ORDERABLES Final Resul t Performing Organization Address [facility]/State/[facility] Co de Phone Number [facility] [address] [place] [address], * (ABNORMAL) Vitamin D 25 hydroxy (12/21/2024 8:08 AM EDT) Vit D, 25-Hydroxy 29.5(L) 30.0 - 80.0 ng/mL LAB CHEMISTRY METHOD 12/21/2024 12:01 PM EDT [facility] Blood Venous blood specimen / Unknown Venipuncture / Unknown 12/21/2024 8:08 AM EDT 12/21/2024 8:08 AM EDT us Elizabeth Plummer PA LAB BLOOD ORDERABLES Final Resul t [facility] [address] [place] [address], * (ABNORMAL) Comprehensive metabolic panel (12/21/2024 8:08 AM EDT) Sodium 136 133 - 145 mmol/L LAB CHEMISTRY METHOD 12/21/2024 11:23 AM [facility] Potassium 4.4 3.5 - 5.5 mmol/L LAB CHEMISTRY METHOD 12/21/2024 11:23 AM [facility] Chloride 105 96 - 110 mmol/L LAB CHEMISTRY METHOD 12/21/2024 11:23 AM [facility] CO2 25 21 - 32 mmol/L LAB CHEMISTRY METHOD 12/21/2024 11:23 AM [facility] Anion Gap 6 3 - 11 LAB CHEMISTRY METHOD 12/21/2024 11:23 AM [facility] Glucose 108(H) 70 - 100 mg/dL LAB CHEMISTRY METHOD 12/21/2024 11:23 AM [facility] BUN 12 5 - 25 mg/dL LAB CHEMISTRY METHOD 12/21/2024 11:23 AM [facility] Creatinine 0.70 0.50 - 1.10 mg/dL LAB CHEMISTRY METHOD 12/21/2024 11:23 AM [facility] eGFR 111 >=60 mL/min/1. 73m2 LAB CHEMISTRY METHOD 12/21/2024 11:23 AM [facility] Comment:Calculation based on the Chronic Kidney Disease Epidemiology Collaboration (CKD-EPI) equation refit without adjustment for race. BUN/Creatinine Ratio 17.1 LAB CHEMISTRY METHOD 12/21/2024 11:23 AM [facility] Calcium 8.4(L) 8.5 - 10.5 mg/dL LAB CHEMISTRY METHOD 12/21/2024 11:23 AM [facility] AST (SGOT) 17 10 - 42 unit/L LAB CHEMISTRY METHOD 12/21/2024 11:23 AM EDT [facility] ALT (SGPT) 18 10 - 60 unit/L LAB CHEMISTRY METHOD 12/21/2024 11:23 AM EDT [facility] Alkaline Phosphatase 68 42 - 121 unit/L LAB CHEMISTRY METHOD 12/21/2024 11:23 AM T [facility] Total Protein 7.0 6.0 - 8.0 g/dL LAB CHEMISTRY METHOD 12/21/2024 11:23 AM T [facility] Albumin 3.5 3.2 - 5.0 g/dL LAB CHEMISTRY METHOD 12/21/2024 11:23 AM [facility] Total Bilirubin 0.3 0.0 - 1.4 mg/dL LAB CHEMISTRY METHOD 12/21/2024 11:23 AM T [facility] Blood Venous blood specimen / Unknown Venipuncture / Unknown 12/21/2024 8:08 AM EDT 12/21/2024 8:08 AM EDT Elizabeth BLANCO LAB BLOOD ORDERABLES Final Resul t [facility] [address] [place] [address], * Depression Screening (12/30/2023) Depression Screening Abstracted Historical Provider HEALTH MAINTENANCE Final Result * Pap Smear (01/28/2020) Pap smear No interpretation , Abstracted Historical Provider HEALTH MAINTENANCE Final Result from Last 3 Months or Most Recently Relevant to Health Maintenance Insurance [facility] Care Teams Software Release Manager Relationship Specialty Start Date End Date Bayron Camp MD [address] [place] [address] PCP - General 01/14/23
== END 2025-03-12 07:26 | disposition home or self-care (01) ==
LOC: HO.MAMMO 07:25
PROVIDERS: PCP Physician Assistant; Visit Provider Physician Assistant
DX: Z12.31 Encounter for screening mammogram for malignant neoplasm of breast (principal)
CPT/HCPCS: 77063; 77067

== ENCOUNTER → 2025-03-12 07:45 | Outpatient (BNV) | payer OTHER, SELFPAY | PROVIDERS: PCP Physician Assistant; Visit Provider Internal Medicine | DX: Z12.31 Encounter for screening mammogram for malignant neoplasm of breast (principal) | CPT/HCPCS: 77063; 77067 ==